=== PATIENT | male | born 1950 | race African-American/Black ===

== ENCOUNTER → 2017-06-19 | Outpatient (CLI) | payer MEDICARE, OTHER ==
--- NOTE | 2017-06-19 12:02 | EKG REPORT ---
SEVERITY:- ABNORMAL ECG - SINUS RHYTHM PROBABLE LEFT VENTRICULAR HYPERTROPHY BORDERLINE T ABNORMALITIES, INFERIOR LEADS : Confirmed by: Adilene Wheat MD 19-Jun-2017 12:02:01
== END ==
LOC: OD 10:15
PROVIDERS: ATTEND Family Medicine
DX: Z13.6 Encounter for screening for cardiovascular disorders (principal)
CPT/HCPCS: 93005; 93010

== ENCOUNTER 2018-03-03 16:42 | Emergency (ER) | payer MEDICARE, OTHER ==
--- NOTE | 2018-03-03 17:05 | ER Document Report ---
ED Medical Screen (RME) - General Chief Complaint: Back Pain Stated Complaint: BACK PAIN Time Seen by Provider: 03/03/18 16:58 TRAVEL OUTSIDE OF THE [place] IN LAST 30 DAYS: No - HPI Notes: 03/03/18 17:04 Seen by PCP for evaluation ataxia for 1 week - Related Data Allergies/Adverse Reactions: No Known Allergies Allergy (Unverified 03/03/18 16:43) Past Medical History - Social History Chew tobacco use (# tins/day): No Frequency of alcohol use: None Drug Abuse: None - Past Medical History Cardiac Medical History: Reports: Hx Hypercholesterolemia, Hx Hypertension Endocrine Medical History: Reports: Hx Diabetes Mellitus Type 2 Renal/ Medical History: Denies: Hx Peritoneal Dialysis Review of Systems - Review of Systems Constitutional: Other - Ataxia Physical Exam - Vital signs Vitals: Temp Pulse Resp BP Pulse Ox 98.2 F 80 19 147/77 H 95 03/03/18 16:48 03/03/18 16:48 03/03/18 16:48 03/03/18 16:48 03/03/18 16:48 - Notes Notes: Mild past pointing with nose to finger. No unilateral weakness. No nystagmus. Patient otherwise alert and oriented. Course - Re-evaluation Re-evalutation: 03/03/18 17:05 I have greeted and performed a rapid initial assessment of this patient. A comprehensive ED assessment and evaluation of the patient, analysis of test results and completion of the medical decision making process will be conducted by additional ED providers. - Vital Signs Vital signs: Temp Pulse Resp BP Pulse Ox 98.2 F 80 19 147/77 H 95 03/03/18 16:48 03/03/18 16:48 03/03/18 16:48 03/03/18 16:48 03/03/18 16:48 Doctor's Discharge - Discharge Referrals: MACK RIBEIRO MD [Primary Care Provider] - Follow up as needed
[2018-03-03 17:43] LABS: ABSOLUTE BASOPHILS # (AUTO) 0.1 10^3/uL (0.0-0.2); ABSOLUTE EOSINOPHILS # (AUTO) 0.2 10^3/uL (0.0-0.6); ABSOLUTE LYMPHOCYTES (AUTO) 2.1 10^3/uL (0.5-4.7); ABSOLUTE NEUT (AUTO) 5.1 10^3/uL (1.7-8.2); BASOPHILS % (AUTO) 1.3 % (0-2); EOSINOPHILS % (AUTO) 1.9 % (0-6); HEMATOCRIT 39.7 % (37.9-51.0); HEMOGLOBIN 12.4 g/dL (13.5-17.0); LYMPHOCYTES % (AUTO) 24.8 % (13-45); MEAN CORPUSCULAR HEMOGLOBIN 22.4 pg (27.0-33.4); MEAN CORPUSCULAR HGB CONC 31.1 g/dL (32.0-36.0); MEAN CORPUSCULAR VOLUME 72 fl (80-97); MONOCYTES % (AUTO) 11.5 % (3-13); PLATELET COUNT 315 10^3/uL (150-450); RED BLOOD COUNT 5.53 10^6/uL (4.35-5.55); RED CELL DISTRIBUTION WIDTH 19.6 % (11.5-14.0); SEGMENTED NEUTROPHILS % (AUTO) 60.5 % (42-78); TOTAL CELLS COUNTED % (AUTO) 100 %; WHITE BLOOD COUNT 8.5 10^3/uL (4.0-10.5)
[2018-03-03 18:05] LABS: ALANINE AMINOTRANSFERASE 27 U/L (21-72); ALBUMIN 4.3 g/dL (3.5-5.0); ALKALINE PHOSPHATASE 54 U/L (38-126); ANION GAP 10 (5-19); ASPARTATE AMINO TRANSFERASE 22 U/L (17-59); BILIRUBIN,DIRECT 0.2 mg/dL (0.0-0.4); BILIRUBIN,TOTAL 0.4 mg/dL (0.2-1.3); BLOOD UREA NITROGEN 19 mg/dL (7-20); CALCIUM 9.9 mg/dL (8.4-10.2); CARBON DIOXIDE 31 mmol/L (22-30); CHLORIDE 100 mmol/L (98-107); GLUCOSE 218 mg/dL (75-110); LIPASE 47.2 U/L (23-300); POTASSIUM 3.7 mmol/L (3.6-5.0); SODIUM 141.3 mmol/L (137-145); TOTAL PROTEIN 7.3 g/dL (6.3-8.2)
--- NOTE | 2018-03-03 18:07 | ER Document Report ---
ED General - General Chief Complaint: Back Pain Stated Complaint: BACK PAIN Time Seen by Provider: 03/03/18 16:58 Mode of Arrival: Wheelchair Information source: Patient Notes: This is a 67-year-old man with a history of hypertension and diabetes who is referred to the emergency room by primary care doctor for scan of the brain for possible stroke. The patient states that he has had difficulty ambulating for the past 5 days. He also complains of lumbar pain since that time. He denies any fever, chills, nausea vomiting. He denies any recent illnesses. He denies any urinary retention or urinary incontinence. He denies any fecal incontinence. He denies any numbness to the saddle area or any numbness down the extremities. TRAVEL OUTSIDE OF THE [place] IN LAST 30 DAYS: No - HPI Onset: Last week Onset/Duration: Gradual Quality of pain: No pain Severity: None Pain Level: Denies Associated symptoms: denies: Chest pain, Fever, Shortness of breath Exacerbated by: Denies Relieved by: Denies Similar symptoms previously: Yes Recently seen / treated by doctor: Yes - Related Data Allergies/Adverse Reactions: No Known Allergies Allergy (Unverified 03/03/18 16:43) Past Medical History - General Information source: Patient - Social History Smoking Status: Never Smoker Cigarette use (# per day): No Chew tobacco use (# tins/day): No Frequency of alcohol use: None Drug Abuse: None Lives with: Family Family History: None Patient has suicidal ideation: No Patient has homicidal ideation: No - Past Medical History Cardiac Medical History: Reports: Hx Hypercholesterolemia, Hx Hypertension Endocrine Medical History: Reports: Hx Diabetes Mellitus Type 2 Renal/ Medical History: Denies: Hx Peritoneal Dialysis Surgical Hx: Negative Review of Systems - Review of Systems Constitutional: denies: Chills, Fever EENT: No symptoms reported Cardiovascular: No symptoms reported Respiratory: No symptoms reported Gastrointestinal: No symptoms reported Genitourinary: No symptoms reported Male Genitourinary: No symptoms reported Musculoskeletal: See HPI Skin: No symptoms reported Hematologic/Lymphatic: No symptoms reported Neurological/Psychological: See HPI Physical Exam - Vital signs Vitals: Temp Pulse Resp BP Pulse Ox 98.2 F 80 19 147/77 H 95 03/03/18 16:48 03/03/18 16:48 03/03/18 16:48 03/03/18 16:48 03/03/18 16:48 Notes: Physical exam: GENERAL: 67-year-old man, alert and oriented 3, no acute distress HEAD: Atraumatic, normocephalic. EYES: Pupils equal round and reactive to light, extraocular movements intact, sclera anicteric, conjunctiva are normal. ENT: TMs normal, nares patent, oropharynx clear without exudates. Moist mucous membranes. NECK: Normal range of motion, supple without obvious mass or JVD. LUNGS: Breath sounds clear to auscultation bilaterally and equal. No wheezes rales or rhonchi. HEART: Regular rate and rhythm without murmurs, rubs or gallops. ABDOMEN: Soft, normoactive bowel sounds. No tenderness to palpation. No guarding, no rebound. No masses appreciated. Rectal exam: Perianal exam shows no sensory loss. No masses on rectal exam. Patient does have good tone. EXTREMITIES: Normal range of motion, no pitting or edema. No clubbing or cyanosis. NEUROLOGICAL: Cranial nerves II through XII grossly intact. Upper extremity motor exam is 5/5. Lower exam motor is 5/5. Heel to rao is grossly intact. Patient exhibits normal sensation over the face upper extremities, lower extremities and in the saddle area. Normal speech, moving all extremities. He does appear to have a wide-based gait on ambulation. PSYCH: Normal mood, normal affect. SKIN: Warm, Dry, normal turgor, no rashes or lesions noted. Course - Re-evaluation Re-evalutation: 03/03/18 21:21 I discussed the presentation as well as the MR findings with Dr. Esparza of neurology advised him. He felt that outpatient follow-up with a neurologist was appropriate. I discussed the MRI findings with Dr. Walters who would seen the patient earlier today as well as the neurology recommendations. The plan will be to refer the patient to a neurologist here in town (Dr. Gaytan). Patient will follow up with Dr. Walters for the appropriate referral papers. - Vital Signs Vital signs: Temp Pulse Resp BP Pulse Ox 98.2 F 86 18 148/76 H 96 03/03/18 21:30 03/03/18 21:30 03/03/18 21:30 03/03/18 21:30 03/03/18 21:30 - Laboratory Result Diagrams: 03/03/18 17:29 03/03/18 17:29 Laboratory results interpreted by me: 03/03/18 03/03/18 03/03/18 17:29 17:29 21:18 Hgb 12.4 L MCV 72 L MCH 22.4 L MCHC 31.1 L RDW 19.6 H Carbon Dioxide 31 H Glucose 218 H Urine Glucose (UA) >=500 H Urine Ketones TRACE H Urine Ascorbic Acid 40 H Discharge - Discharge Clinical Impression: Gait ataxia Condition: Stable Disposition: HOME, SELF-CARE Additional Instructions: Recommendations: As we discussed, the MRI of the brain did not show any acute strokes. There were some white matter changes which is often seen in patients with high blood pressure and diabetes. As far as the lumbar spine MRI, it did show some disc bulging with some arthritic changes but there was no compression or significant narrowing of the spinal cord. I have discussed the results of the MRI with Dr. Walters. Dr. Walters is following up on a B 12-lead level. We also want you to follow-up with a neurologist for evaluation. Return to the emergency room for worsening gait or any weakness of the lower extremities. Referrals: MACK WALTERS MD [Primary Care Provider] - Follow up in 3-5 days VALERIE DOSHI MD [COMMUNITY BASED STAFF] - Follow up as needed (This is the number for the neurologist: Call tomorrow and let them know you were evaluated for ataxia in the emergency room and the ER doctor (as well as Dr. Walters) wanted you evaluated in the next week.)
--- NOTE | 2018-03-03 19:09 | RADIOLOGY REPORT (SQ) ---
EXAM DESCRIPTION: MRI HEAD WITHOUT COMPLETED DATE/TIME: 03/03/2018 6:53 pm REASON FOR STUDY: Sent by Dr. Levi ataxia 1 week COMPARISON: None. TECHNIQUE: Multiplanar imaging includes non-contrasted T1, T2, FLAIR, and Diffusion with ADC map seq uences. Images stored on PACS. LIMITATIONS: None. FINDINGS: ANATOMY: No anomalies. Normal vascular flow voids. Pituitary fossa normal. CSF SPACES: Normal in size and contour. No hemorrhage. CEREBRUM: A few high-signal intensity lesions scattered throughout the white matter on FLAIR imaging with distribution suggesting chronic micro-vascular ischemic change. Sulci and gyri normal in size a nd contour. No evidence of hemorrhage, mass or extraaxial fluid collection. POSTERIOR FOSSA: No signal alteration. No hemorrhage. No edema, masses or mass effect. Internal zoraida tory canals, cerebello-pontine angles, mastoids normal. DIFFUSION: Negative for acute or sub-acute infarction. ORBITS: No masses. Globes normal. PARANASAL SINUSES: No fluid levels. Mucosa normal. OTHER: No other significant finding. IMPRESSION: MINIMAL MICROVASCULAR ISCHEMIC CHANGE. OTHERWISE NORMAL STUDY. EVIDENCE OF ACUTE STROKE: NO. TECHNICAL DOCUMENTATION: JOB ID: [id number] [employer]- All Rights Reserved Reading location - IP/workstation name: [email or web address]
--- NOTE | 2018-03-03 19:29 | RADIOLOGY REPORT (SQ) ---
EXAM DESCRIPTION: MRI LUMBAR SPINE WITHOUT COMPLETED DATE/TIME: 03/03/2018 6:53 pm REASON FOR STUDY: lower leg ataxia COMPARISON: None. TECHNIQUE: Sagittal and Axial imaging includes T1, T2, STIR and gradient echo sequences. Coronal T2/ HASTE imaging. LIMITATIONS: Imaging is interpreted in the absence of comparison radiographs FINDINGS: VISUALIZED UPPER ABDOMEN: Limited evaluation. No acute or suspicious findings suggested. 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 ALIGNMENT: Anatomic. VERTEBRAE: Intact. BONE MARROW: Normal. No marrow replacement or reactive changes. DISC SIGNAL: Disc desiccation and loss of height at L3/4 and L4/5. POSTERIOR ELEMENTS: Generally intact. No pars defect evident. HARDWARE: None in the spine. CORD AND CONUS: Normal in size and signal intensity. Conus at the appropriate level. SOFT TISSUES: No aortic aneurysm seen. No bulky retroperitoneal adenopathy or mass. No paraspinal mas s or fluid. L1-L2: No significant spinal stenosis or exit foraminal stenosis. L2-L3: No significant spinal stenosis or exit foraminal stenosis. L3-L4: Broad-based posterior disc bulge with concomitant facet arthropathy results in mild narrowing of the central canal and moderate narrowing of the right and left neural foramina. L4-L5: Broad-based posterior disc bulge with concomitant facet arthropathy results and mild narrowing of the central canal and moderate narrowing of the right and left neural foramina. L5-S1: Shallow broad-based posterior disc bulge without significant central canal narrowing. Concomi tant facet arthropathy results an mild right and moderate left neural foraminal narrowing. LOWER THORACIC: Disc desiccation and loss of height is seen at the T12/L1 level. SACRUM: Visualized upper sacrum intact. OTHER: No other significant findings. IMPRESSION: Multilevel spondylotic change most significantly involving the L3/4 and L4/5 levels as d etailed above. TECHNICAL DOCUMENTATION: JOB ID: [id number] [employer]- All Rights Reserved Reading location - IP/workstation name: [email or web address]
[2018-03-03 21:35] VITALS: BP 148/76
[2018-03-03 21:42] LABS: APPEARANCE,URINE CLEAR; BILIRUBIN,URINE NEGATIVE (NEGATIVE); COLOR,URINE STRAW; GLUCOSE, URINE >=500 mg/dL (NEGATIVE); KETONES,URINE TRACE mg/dL (NEGATIVE); LEUKOCYTE ESTERASE,URINE NEGATIVE (NEGATIVE); NITRITE,URINE NEGATIVE (NEGATIVE); PROTEIN,URINE NEGATIVE (NEGATIVE); URINE SPECIFIC GRAVITY 1.024; UROBILINOGEN,URINE NEGATIVE mg/dL (<2.0)
== END 2018-03-03 21:35 | disposition home or self-care (01) ==
LOC: ER 16:42
DX: R26.0 Ataxic gait (principal); I10 Essential (primary) hypertension; E11.9 Type 2 diabetes mellitus without complications; M54.5 Low back pain
CPT/HCPCS: 36415; 70551; 72148; 80053; 81001; 82607; 83690; 83735; 85025; 99284

== ENCOUNTER 2019-02-19 06:20 | Day surgery (SDC) | payer MEDICARE, OTHER ==
[~2019-02-19 06:20] MED LIST: BESIFLOXACIN HCL 0.6% OPH SUSP 5 ML BOTTLE OD PRN; CYCLOPENTOLATE 0.2%/PHENYLEPHRINE 1% OPH SOLN 2 ML OD PRN; DORZOLAMIDE HCL 2%/TIMOLOL MALEAT 0.5% OPH SOLN 10 ML OD PRN; KETOROLAC TROMETHAMINE 0.45% 4 DROP/0.4 ML DROPERETTE OD PRN; TETRACAINE HCL 0.5% OPH SOLN 4 ML OD PRN; TROPICAMIDE 1% OPH SOLN 3 ML OD PRN
== END 2019-02-19 06:51 | disposition home or self-care (01) ==
LOC: SC 06:20
PROVIDERS: ATTEND Internal Medicine
DX: R69 Illness, unspecified (principal)
CPT/HCPCS: J3490

== ENCOUNTER → 2019-02-24 | Day surgery (SDC) | payer MEDICARE, OTHER ==
[~2019-02-24] MED LIST changes: -BESIFLOXACIN HCL 0.6% OPH SUSP 5 ML BOTTLE OD PRN; +CHONDR SU A NA/HYALUR INTRAOC KIT (SURGICARE) ONE; -CYCLOPENTOLATE 0.2%/PHENYLEPHRINE 1% OPH SOLN 2 ML OD PRN; -DORZOLAMIDE HCL 2%/TIMOLOL MALEAT 0.5% OPH SOLN 10 ML OD PRN; +EPINEPHRINE INJ/PF 1 MG/1 ML AMPULE ONE; +FENTANYL CITRATE INJ/PF 100 MCG/2 ML AMPUL ONE; +LIDOCAINE 1%/PHENYLEPHRINE 1.5% 1 ML VIAL ONE; +MIDAZOLAM 2 MG/2 ML INJ ONE; -TETRACAINE HCL 0.5% OPH SOLN 4 ML OD PRN; -TROPICAMIDE 1% OPH SOLN 3 ML OD PRN
[2019-02-24] MEDS: CYCLOPENTOLATE 0.2%/PHENYLEPHRINE 1% OPH SOLN 2 ML OD PRN ×3 (07:51→08:11)
[2019-02-24] MEDS: TROPICAMIDE 1% OPH SOLN 3 ML OD PRN ×3 (07:51→08:11)
[2019-02-24] MEDS: TETRACAINE HCL 0.5% OPH SOLN 4 ML OD PRN ×3 (07:51→08:15)
[2019-02-24] MEDS: BESIFLOXACIN HCL 0.6% OPH SUSP 5 ML BOTTLE OD PRN ×4 (07:51→08:36)
[2019-02-24] MEDS: DORZOLAMIDE HCL 2%/TIMOLOL MALEAT 0.5% OPH SOLN 10 ML OD PRN ×2 (08:36)
--- NOTE | 2019-02-24 11:49 | [facility] OPERATIVE REPORT E ---
[facility] Operative Report NAME: NATI TEJADA AGE: 68Y DATE OF SURGERY: 02/24/2019 ROOM: PREOPERATIVE DIAGNOSIS: CATARACT, RIGHT EYE. POSTOPERATIVE DIAGNOSIS: CATARACT, RIGHT EYE. OPERATION: Cataract extraction with insertion of an IOL of the right eye. SURGEON: RICK NORTH M.D. ANESTHESIA: Topical. PROCEDURE: After obtaining appropriate consent, the patient's right eye was prepped and draped in sterile fashion as well as the surgeon in a sterile manner and cataract surgery was started. First a paracentesis blade was used to make a side-port incision. Viscoelastic was used to inflate the anterior chamber. Next a 2.4 mm incision was made with a 2.4 mm blade, clear corneal temporally. A continuous capsulorrhexis was made using a cystotome and Utrata forceps. Following this hydrodissection was carried out to make the lens fully loose and mobile and it was rotated 90 degrees. Following this, a [id number]-kxm-[id number] technique was used to phacoemulsify the lens with a CDE of 6.71. The remaining cortex was removed with irrigation/aspiration. Provisc was instilled into the capsular bag to inflate the bag. A SN60WF, 18.0 diopter lens was placed. The remaining viscoelastic material was removed with irrigation/aspiration. Following this, the incision was found to be watertight. Besivance was instilled into the eye and a protective shield was placed over the eye. The patient returned to the postoperative recovery in stable condition. DICTATING PHYSICIAN: RICK NORTH M.D. [id number] PHY#: [id number] ID: [id number] JOB#: [id number] ACCT: [id number] cc:RICK NORTH M.D. >
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
== END ==
LOC: SC 07:04
PROVIDERS: ATTEND Internal Medicine
DX: H25.813 Combined forms of age-related cataract, bilateral (principal); H40.1131 Primary open-angle glaucoma, bilateral, mild stage; H04.123 Dry eye syndrome of bilateral lacrimal glands; E11.9 Type 2 diabetes mellitus without complications; I10 Essential (primary) hypertension; E78.00 Pure hypercholesterolemia, unspecified; K21.9 Gastro-esophageal reflux disease without esophagitis; Z79.899 Other long term (current) drug therapy; Z79.82 Long term (current) use of aspirin; Z79.84 Long term (current) use of oral hypoglycemic drugs; Z79.4 Long term (current) use of insulin
CPT/HCPCS: 66984; 82962; V2632; J2250; J3490 ×2; A9270; J0171; J3010; J2370; 142

== ENCOUNTER 2019-03-12 08:05 | Day surgery (SDC) | payer MEDICARE, OTHER ==
[~2019-03-12 08:05] MED LIST changes: -CHONDR SU A NA/HYALUR INTRAOC KIT (SURGICARE) ONE; -EPINEPHRINE INJ/PF 1 MG/1 ML AMPULE ONE; -FENTANYL CITRATE INJ/PF 100 MCG/2 ML AMPUL ONE; -KETOROLAC TROMETHAMINE 0.45% 4 DROP/0.4 ML DROPERETTE OD PRN; +KETOROLAC TROMETHAMINE 0.45% 4 DROP/0.4 ML DROPERETTE OS PRN; -LIDOCAINE 1%/PHENYLEPHRINE 1.5% 1 ML VIAL ONE; -MIDAZOLAM 2 MG/2 ML INJ ONE
[2019-03-12] MEDS: TETRACAINE HCL 0.5% OPH SOLN 4 ML OS PRN ×3 (09:03→09:34)
[2019-03-12] MEDS: TROPICAMIDE 1% OPH SOLN 3 ML OS PRN ×3 (09:04→09:24)
[2019-03-12] MEDS: BESIFLOXACIN HCL 0.6% OPH SUSP 5 ML BOTTLE OS PRN ×4 (09:04→09:53)
[2019-03-12] MEDS: CYCLOPENTOLATE 0.2%/PHENYLEPHRINE 1% OPH SOLN 2 ML OS PRN ×3 (09:04→09:24)
[2019-03-12] MEDS ORDERED: MIDAZOLAM 2 MG/2 ML INJ ONE (09:15)
[2019-03-12] MEDS: CHONDR SU A NA/HYALUR INTRAOC KIT (SURGICARE) ONE ×2 (09:44)
[2019-03-12] MEDS: EPINEPHRINE INJ/PF 1 MG/1 ML AMPULE ONE ×2 (09:44)
[2019-03-12] MEDS: LIDOCAINE 1%/PHENYLEPHRINE 1.5% 1 ML VIAL ONE ×2 (09:45)
[2019-03-12] MEDS: DORZOLAMIDE HCL 2%/TIMOLOL MALEAT 0.5% OPH SOLN 10 ML OS PRN ×2 (09:53)
--- NOTE | 2019-03-12 21:09 | [facility] OPERATIVE REPORT E ---
[facility] Operative Report NAME: NATI TEJADA AGE: 68Y DATE OF SURGERY: 03/12/2019 ROOM: PREOPERATIVE DIAGNOSIS: CATARACT, LEFT EYE. POSTOPERATIVE DIAGNOSIS: CATARACT, LEFT EYE. OPERATION: Cataract extraction with insertion of an IOL of the left eye. SURGEON: RICK NORTH M.D. ANESTHESIA: Topical. PROCEDURE: After obtaining appropriate consent, the patient's left eye was prepped and draped in sterile fashion as well as the surgeon in a sterile manner and cataract surgery was started. First a paracentesis blade was used to make a side-port incision. Viscoelastic was used to inflate the anterior chamber. Next a 2.4 mm incision was made with a 2.4 mm blade, clear corneal temporally. A continuous capsulorrhexis was made using a cystotome and Utrata forceps. Following this hydrodissection was carried out to make the lens fully loose and mobile and it was rotated 90 degrees. Following this, a wnfhwm-rat-gmdvwxq technique was used to phacoemulsify the lens with a CDE of 5.91. The remaining cortex was removed with irrigation/aspiration. Provisc was instilled into the capsular bag to inflate the bag. A SN60WF, 18.0 diopter lens was placed. The remaining viscoelastic material was removed with irrigation/aspiration. Following this, the incision was found to be watertight. Besivance was instilled into the eye and a protective shield was placed over the eye. The patient returned to the postoperative recovery in stable condition. DICTATING PHYSICIAN: RICK NORTH M.D. [id number] PHY#: [id number] ID: [id number] JOB#: [id number] ACCT: [id number] cc:RICK NORTH M.D. >
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
== END 2019-03-12 10:37 | disposition home or self-care (01) ==
LOC: SC 08:05
PROVIDERS: ATTEND Internal Medicine
DX: H25.812 Combined forms of age-related cataract, left eye (principal); Z96.1 Presence of intraocular lens; I10 Essential (primary) hypertension; Z79.899 Other long term (current) drug therapy; E11.9 Type 2 diabetes mellitus without complications; Z79.4 Long term (current) use of insulin; Z79.84 Long term (current) use of oral hypoglycemic drugs; K21.9 Gastro-esophageal reflux disease without esophagitis; Z79.82 Long term (current) use of aspirin
CPT/HCPCS: 66984; 82962; V2632; J2250; J3490 ×2; A9270; J0171; J2370; 142

== ENCOUNTER 2020-09-13 18:39 | Inpatient (IN) | payer MEDICARE, OTHER ==
[~2020-09-13 18:39] MED LIST changes: -KETOROLAC TROMETHAMINE 0.45% 4 DROP/0.4 ML DROPERETTE OS PRN; +SUCCINYLCHOLINE CHLORIDE INJ 200 MG/10 ML VIAL ONE
[2020-09-13] MEDS ORDERED: ETOMIDATE INJ/PF 20 MG/10 ML SDV IV ONE ×3 (18:46→19:46)
[2020-09-13] MEDS ORDERED: BUMETANIDE INJ/PF 1 MG/4 ML SDV IV ONE (18:51)
[2020-09-13] MEDS ORDERED: FUROSEMIDE INJ/PF 20 MG/2 ML SDV IV ONE (18:51)
[2020-09-13] MEDS ORDERED: FUROSEMIDE INJ/PF 20 MG/2 ML SDV ONE (18:52)
[2020-09-13] MEDS ORDERED: DEXAMETHASONE SOD PHOS INJ 10 MG/1 ML VIAL IV ONE (19:04)
[2020-09-13] MEDS ORDERED: PIPERACILLIN/TAZOBACTAM 3.375 GM VIAL IV ONE (19:05)
[2020-09-13] MEDS ORDERED: VANCOMYCIN HCL INJ 1000 MG VIAL IV ONE (19:05)
[2020-09-13] MEDS ORDERED: MIDAZOLAM HCL 50 MG/100 ML RTUINJ IV PRN (19:12)
--- NOTE | 2020-09-13 19:24 | RADIOLOGY REPORT (SQ) ---
EXAM DESCRIPTION: CHEST SINGLE VIEW IMAGES COMPLETED DATE/TIME: 09/13/2020 6:08 pm REASON FOR STUDY: post-intubation. COMPARISON: None. EXAM PARAMETERS: NUMBER OF VIEWS: One view. TECHNIQUE: Single frontal radiographic view of the chest acquired. RADIATION DOSE: NA LIMITATIONS: None. FINDINGS: LUNGS AND PLEURA: There is diffuse consolidation involving the right upper and mid lung an d left mid to lower lung consistent with diffuse airspace disease. Probable small left pleural effus ion. No definite pneumothorax. MEDIASTINUM AND HILAR STRUCTURES: No masses. Contour normal. HEART AND VASCULAR STRUCTURES: Heart normal in size. Normal vasculature. BONES: No acute findings. HARDWARE: Endotracheal tube with tip 2.6 cm above the nam[place]. OTHER: No other significant finding. IMPRESSION: Diffuse areas of consolidation in the right upper tongue the left mid to lower lung cons istent with multifocal pneumonia. Endotracheal tube is in good position. TECHNICAL DOCUMENTATION: JOB ID: [id number] 2010 [employer]- All Rights Reserved Reading location - IP/workstation name: [email or web address]
[2020-09-13] MEDS ORDERED: SUCCINYLCHOLINE CHLORIDE INJ 200 MG/10 ML VIAL IV ONE (19:29)
--- NOTE | 2020-09-13 19:29 | ER Document Report ---
ED General - General Chief Complaint: Unresponsive Stated Complaint: UNRESPONSIVE Mode of Arrival: Medic Information source: Emergency Med Personnel Notes: 70-year-old black male arrives by EMS Nadia intubated prior to arrival because of severe dyspnea and hypoxia. He was also febrile according to EMS. Patient arrives hypotensive tachypneic hypoxic with wet crackles diffusely and decreased breath sounds. He was placed on ventilator by equipment maint tech. Chest x-ray upon arrival reveals severe pulmonary edema with question of COVID-19 patient was hypoxic with 62-70% . Patient had Andrade placed which revealed clear urine and also he received blood cultures urine cultures Bumex 1 Lasix 20 IV Decadron 10 IV vancomycin 1 g IV Zosyn 3.372 IV and this case was discussed with night monitor PATTIE Naik. He saw the patient in room 7 patient was given propofol IV as drip after multiple doses of etomidate 20 mg. Patient's blood pressure continued to rise and his oxygenation continued to rise to 90% x 2015. By history of patient had last week a flu shot and then last Saturday received Pneumovax and shingles shot at 2 PM according to . His Jodie Morales was called at approximately 2000 hrs. at [phone]. Patient has never been a smoker and nondrinker. They have no pets in the house. 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 With COVID-19. She is tested negative however. TRAVEL OUTSIDE OF THE [place] IN LAST 30 DAYS: No - HPI Onset: This morning Onset/Duration: Sudden, Worse Quality of pain: No pain Severity: None - Unable to quantify because of intubation Pain Level: Denies - Unable to quantify because of intubation Associated symptoms: Productive cough - Frothy pink mucoid discharge through intubation tube, Fever Similar symptoms previously: No Recently seen / treated by doctor: No - Related Data Allergies/Adverse Reactions: No Known Allergies Allergy (Verified 03/10/19 16:12) Past Medical History - General Information source: Emergency Med Personnel - Social History Smoking Status: Unknown if Ever Smoked Cigarette use (# per day): No Chew tobacco use (# tins/day): No Smoking Education Provided: No Frequency of alcohol use: None Drug Abuse: None Lives with: Family Family History: None, Reviewed & Not Pertinent, CAD, COPD, Hypertension Patient has suicidal ideation: No Patient has homicidal ideation: No - Past Medical History Cardiac Medical History: Reports: Hx Hypercholesterolemia, Hx Hypertension Denies: Hx Heart Attack Pulmonary Medical History: Denies: Hx Asthma Neurological Medical History: Denies: Hx Cerebrovascular Accident, Hx Seizures Endocrine Medical History: Reports: Hx Diabetes Mellitus Type 2 Renal/ Medical History: Denies: Hx Peritoneal Dialysis GI Medical History: Denies: Hx Hepatitis, Hx Hiatal Hernia, Hx Ulcer Infectious Medical History: Denies: Hx Hepatitis Past Surgical History: Denies: Hx Open Heart Surgery, Hx Pacemaker Review of Systems - Review of Systems -: Yes ROS unobtainable due to patient's medical condition Constitutional: See HPI, Fever, Weakness EENT: No symptoms reported Cardiovascular: No symptoms reported Respiratory: See HPI, Short of breath, Wheezing Gastrointestinal: No symptoms reported Genitourinary: No symptoms reported Male Genitourinary: No symptoms reported Musculoskeletal: No symptoms reported Skin: No symptoms reported Hematologic/Lymphatic: No symptoms reported Neurological/Psychological: No symptoms reported -: Yes All other systems reviewed and negative Physical Exam - Vital signs Vitals: Resp BP Pulse Ox 22 H 101/65 68 L 09/13/20 18:51 09/13/20 18:51 09/13/20 18:51 Interpretation: Hypotensive, Tachycardic, Hypoxic, Tachypneic, Other - Intubated prior to arrival - General General appearance: Lethargic - HEENT Head: Normocephalic, Atraumatic Eyes: Pale conjunctiva, Other - Pinpoint pupils status post fentanyl IV for intubation per EMS Pupils: PERRL Nasal: Normal Mouth/Lips: Normal Pharynx: Normal Neck: Normal - Respiratory Respiratory status: Respiratory distress, Other - On ventilator Chest status: Nontender Breath sounds: Decreased air movement, Rhonchi Chest palpation: Normal - Cardiovascular Rhythm: Tachycardia Heart sounds: Normal auscultation Murmur: No - Abdominal Inspection: Obese, Other Distension: Distended Bowel sounds: Normal Tenderness: Nontender Organomegaly: No organomegaly - Rectal Tenderness: No - Patient defecated in shorts found when Andrade was placed. Prostate: Other - deferred - Genitourinary Scrotum: Other - deferred - Back Back: Nontender - Extremities General upper extremity: Normal inspection, Normal color General lower extremity: Normal inspection, Normal color, Other - Patient normally walks with a walker in the house but otherwise is not ambulatory.. No: Rena's sign - Neurological Neuro grossly intact: Yes Cognition: Normal Orientation: AAOx4 Yesenia Coma Scale Eye Opening: Spontaneous Yesenia Coma Scale Verbal: Oriented Yesenia Coma Scale Motor: Obeys Commands Penn Coma Scale Total: 15 Speech: Normal Motor strength normal: LUE, RUE, LLE, RLE Sensory: Normal - Psychological Associated symptoms: Normal affect, Normal mood - Skin Skin Temperature: Warm Skin Moisture: Dry Skin Color: Normal Course - Vital Signs Vital signs: Temp Pulse Resp BP Pulse Ox 99.8 F 22 H 115/74 95 09/13/20 23:10 09/13/20 23:10 09/13/20 23:10 09/13/20 23:10 - Laboratory Result Diagrams: 09/13/20 18:42 09/13/20 18:42 Laboratory results interpreted by me: 09/13/20 09/13/20 09/13/20 18:42 18:42 18:42 WBC 11.0 H Hgb 12.6 L Hct 37.4 L MCV 74 L MCH 24.9 L RDW 16.9 H Seg Neuts % (Manual) 79 H Lymphocytes % (Manual) 7 L Abs Neuts (Manual) 9.1 H APTT 37.6 H D-Dimer 1.33 H Carbonic Acid ABG pH ABG pCO2 ABG pO2 ABG HCO3 ABG Total CO2 ABG O2 Saturation Chloride 97 L BUN 47 H Creatinine 1.60 H Est GFR ( Amer) 52 L Est GFR (MDRD) Non-Af 43 L Glucose 217 H Direct Bilirubin 0.5 H AST 107 H ALT 81 H Urine Protein Urine Glucose (UA) Urine Ketones Urine Ascorbic Acid 09/13/20 09/13/20 18:52 20:30 WBC Hgb Hct MCV MCH RDW Seg Neuts % (Manual) Lymphocytes % (Manual) Abs Neuts (Manual) APTT D-Dimer Carbonic Acid 1.72 H ABG pH 7.32 L ABG pCO2 57.0 H ABG pO2 38.5 L* ABG HCO3 28.7 H ABG Total CO2 30.5 H ABG O2 Saturation 67.4 L Chloride BUN Creatinine Est GFR ( Amer) Est GFR (MDRD) Non-Af Glucose Direct Bilirubin AST ALT Urine Protein 30 H Urine Glucose (UA) >=500 H Urine Ketones TRACE H Urine Ascorbic Acid 20 H - Diagnostic Test Radiology reviewed: Reports reviewed Critical Care Note - Critical Care Note Total time excluding time spent on procedures (mins): 60 Discharge - Discharge Clinical Impression: Suspected COVID-19 virus infection, Endotracheally intubated Respiratory failure with hypoxia Qualifiers: Chronicity: acute Qualified Code(s): J96.01 - Acute respiratory failure with hypoxia PNA (pneumonia) Qualifiers: Pneumonia type: due to unspecified organism Laterality: bilateral Lung location: unspecified part of lung Qualified Code(s): J18.9 - Pneumonia, unspecified organism Condition: Serious Disposition: ADMITTED INPATIENT Admitting Provider: PATTIE Naik Unit Admitted: ICU
[2020-09-13] MEDS ORDERED: ACETAMINOPHEN 325 MG SUPP.RECT PR ONE ×3 (19:35→19:38)
[2020-09-13] MEDS ORDERED: NORMAL SALINE 500 ML with ROCURONIUM BROMIDE 500 MG IV PRN ×2 (19:47)
[2020-09-13 20:07] LABS: ARTERIAL BLOOD BASE EXCESS 1.4 mmol/L; ARTERIAL BLOOD FIO2 100%; ARTERIAL BLOOD H2CO3 1.72 mmol/L (1.05-1.35); ARTERIAL BLOOD HCO3 28.7 mmol/L (20-24); ARTERIAL BLOOD O2 SATURATION 67.4 % (94-98); ARTERIAL BLOOD PH 7.32 (7.35-7.45); ARTERIAL BLOOD TOTAL CO2 30.5 mmol/L (23-27)
[2020-09-13] MEDS ORDERED: FENTANYL CITRATE INJ/PF 100 MCG/2 ML AMPUL IV ONE (20:07)
[2020-09-13 20:08] LABS: INTERNATIONAL RATION (INR) 1.04; PROTHROMBIN TIME 13.8 SEC (11.4-15.4)
[2020-09-13 20:09] LABS: PARTIAL THROMBOPLASTIN TIME 37.6 SEC (23.5-35.8)
[2020-09-13 20:10] LABS: HEMATOCRIT 37.4 % (37.9-51.0); HEMOGLOBIN 12.6 g/dL (13.5-17.0); MEAN CORPUSCULAR HEMOGLOBIN 24.9 pg (27.0-33.4); MEAN CORPUSCULAR HGB CONC 33.7 g/dL (32.0-36.0); MEAN CORPUSCULAR VOLUME 74 fl (80-97); PLATELET COUNT 357 10^3/uL (150-450); RED BLOOD COUNT 5.05 10^6/uL (4.35-5.55); RED CELL DISTRIBUTION WIDTH 16.9 % (11.5-14.0)
[2020-09-13 20:11] LABS: D-DIMER 1.33 ug/mL (0.00-0.50)
[2020-09-13 20:11] LABS: ARTERIAL BLOOD PO2 38.5 mmHg (80-100)
[2020-09-13] MEDS: PROPOFOL 1,000 MG/100 ML INFUS..BTL IV PRN (20:14)
[2020-09-13 20:21] LABS: ALBUMIN 3.7 g/dL (3.5-5.0); ALKALINE PHOSPHATASE 73 U/L (38-126); ANION GAP 13 (5-19); ASPARTATE AMINO TRANSFERASE 107 U/L (17-59); BILIRUBIN,DIRECT 0.5 mg/dL (0.0-0.4); BILIRUBIN,TOTAL 0.8 mg/dL (0.2-1.3); BLOOD UREA NITROGEN 47 mg/dL (7-20); CALCIUM 8.4 mg/dL (8.4-10.2); CARBON DIOXIDE 29 mmol/L (22-30); CHLORIDE 97 mmol/L (98-107); CREATINE KINASE 63 U/L (55-170); GLUCOSE 217 mg/dL (75-110); POTASSIUM 4.4 mmol/L (3.6-5.0); TOTAL PROTEIN 6.8 g/dL (6.3-8.2)
[2020-09-13 20:22] LABS: A TYPE INFLUENZA AG NEGATIVE (NEGATIVE); B INFLUENZA AG NEGATIVE (NEGATIVE)
[2020-09-13 20:29] LABS: ABSOLUTE LYMPHOCYTES# (MANUAL) 0.9 10^3/uL (0.5-4.7); BAND NEUTROPHILS % (MANUAL) 3 % (3-5); BASOPHILS % (MANUAL) 0 % (0-2); EOSINOPHILS % (MANUAL) 0 % (0-6); LYMPHOCYTES % (MANUAL) 7 % (13-45); METAMYELOCYTES % (MANUAL) 1 % (0-1); MONOCYTES % (MANUAL) 9 % (3-13); SEGMENTED NEUTROPHILS % (MAN) 79 % (42-78); TOTAL CELLS COUNTED 100
[2020-09-13 20:31] LABS: ANISOCYTOSIS 1+; BURR CELLS SLIGHT; OVALOCYTES SLIGHT; PLATELET COMMENT ADEQUATE; POIKILOCYTOSIS SLIGHT; SCHISTOCYTES SLIGHT
[2020-09-13 20:32] LABS: TROPONIN I 0.017 ng/mL
[2020-09-13] MEDS ORDERED: NOREPINEPHRINE BITARTRATE INJ/PF 4 MG/4 ML SDV IV ONE (20:35)
[2020-09-13] MEDS: DEXTROSE 5%-WATER 250 ML with NOREPINEPHRINE BITARTRATE 4 MG IV PRN ×2 (20:44)
[2020-09-13 20:47] LABS: APPEARANCE,URINE SLIGHTLY-CLOUDY; BILIRUBIN,URINE NEGATIVE (NEGATIVE); COLOR,URINE YELLOW; GLUCOSE, URINE >=500 mg/dL (NEGATIVE); KETONES,URINE TRACE mg/dL (NEGATIVE); LEUKOCYTE ESTERASE,URINE NEGATIVE (NEGATIVE); NITRITE,URINE NEGATIVE (NEGATIVE); PROTEIN,URINE 30 mg/dL (NEGATIVE); URINE SPECIFIC GRAVITY 1.017; UROBILINOGEN,URINE NEGATIVE mg/dL (<2.0)
[2020-09-13] MEDS ORDERED: ACETAMINOPHEN 325 MG TABLET PO PRN (20:54)
--- NOTE | 2020-09-13 20:57 | RADIOLOGY REPORT (SQ) ---
EXAM DESCRIPTION: XR ABDOMEN 1 VIEW (KUB) COMPLETED DATE/TME: 09/13/2020 19:38 CLINICAL HISTORY: 70 years Male NGT PLACEMENT COMPARISON: None. TECHNIQUE: Single view of the lower chest/upper abdomen. FINDINGS: There is a nasogastric tube in place with the tip in the gastric body. IMPRESSION: Nasogastric tube with the tip in the gastric body.
[2020-09-13] MEDS ORDERED: PHARMACY COMMUNICATION ORDER MC NR (21:00)
[2020-09-13] MEDS ORDERED: DEXTROSE 50%-WATER 25 GM/50 ML DISP.SYRIN IV PRN (21:17)
[2020-09-13] MEDS ORDERED: GLUCAGON,HUMAN RECOMB 1 MG INJ IM PRN (21:17)
[2020-09-13] MEDS ORDERED: DEXTROSE 40% GEL 15 GM TUBE PO PRN ×2 (21:17)
[2020-09-13] MEDS: HEPARIN SOD (PORCINE) 5,000 UNIT/ML 1 ML VIAL SUBCUT SCH (21:49)
[2020-09-13] MEDS: PANTOPRAZOLE SODIUM 40 MG VIAL IV SCH (21:49)
[2020-09-13] MEDS ORDERED: CEFEPIME 2 GM/D5W RTU 2 GM/50 ML RTUPB IV SCH (22:00)
[2020-09-13] MEDS: INSULIN REG, HUMAN 100 UNIT/ML 3 ML VIAL (PYX) SUBCUT SCH (22:02)
[2020-09-13] MEDS ORDERED: VANCOMYCIN HCL INJ 1000 MG VIAL IV PRN (22:27)
[2020-09-13] MEDS ORDERED: VANCOMYCIN HCL 1,000 MG in DEXTROSE 5%-WATER 250 ML IV ONE (23:00)
--- NOTE | 2020-09-13 23:30 | CRITICAL CARE ADMISSION REPORT ---
HPI Date:: 09/13/20 Time:: 23:09 Reason for ICU Reason:: RESP FAILURE Admission Date/Time & PCP: Admission Date/Time: 09/13/20 21:08 Primary Care Provider: MACK RIBEIRO MD ADMIT TO DR. HAWKINS HPI: 70 year old male who was found at home by his with AMS and shallow respiratory efforts. EMS was called and the patient was found to by hypoxic and was intubated in the home. The patient was transported to [place] [facility] and evaluated by the ED provider.The patient has a past medical hisotry to include DM, HTN, and hyperlipidemia per the spouse. She denies any cardiac history. Chest xray revealed bilateral PNA and the pateint was given zosyn and vancomycin in the ED. The patient was also give lasix 20mg and bumes 1 mg. Lab results revealed a BNP to only be in the 100 range. The patient remained hypoxic with sats in the low to mid 80's and improved with vent adjustment and adequate sedation. Critical care was consulted for admission and management of this patient. I I sawthe patient in the ED and made vent adjustment with improvement in saturation to low 90's. A complete review of systems was unable to obtain due to intubation and sedation. - Diagnosis/Plan (1) Respiratory failure with hypoxia Qualifiers: Chronicity: acute Qualified Code(s): J96.01 - Acute respiratory failure with hypoxia Is this a current diagnosis for this admission?: Yes Plan: continue mechanical ventilation and repeat CXR in AM repeat ABG vent adjustment as needed (2) Suspected COVID-19 virus infection Is this a current diagnosis for this admission?: Yes Plan: COVID !( isolation precautions (3) PNA (pneumonia) Qualifiers: Pneumonia type: due to unspecified organism Laterality: bilateral Lung location: unspecified part of lung Qualified Code(s): J18.9 - Pneumonia, unspecified organism Is this a current diagnosis for this admission?: Yes Plan: continue antibioticsblood culture and sputum cultures pending covid 19 pending (4) Acute renal failure (ARF) Qualifiers: Acute renal failure type: unspecified Qualified Code(s): N17.9 - Acute kidney failure, unspecified Is this a current diagnosis for this admission?: Yes Plan: LR at 125 ml/hr repeat cmp in am trend creatinine pharmacy to dose vanc discontinue if pending mrsa swab negative (5) Diabetes mellitus Qualifiers: Diabetes mellitus type: type 2 Diabetes mellitus skilled nursing insulin use: without termite control service representative use Diabetes mellitus complication status: without complication Qualified Code(s): E11.9 - Type 2 diabetes mellitus without complications Is this a current diagnosis for this admission?: No Plan: place patient on regular insulin sliding scale FSBS Q 6hr Past Medical History Cardiac Medical History: Reports: Hyperlipidema, Hypertension Denies: Myocardial Infarction Pulmonary Medical History: Reports: None Denies: Asthma EENT Medical History: Reports: None Neurological Medical History: Reports: None Denies: Seizures Endocrine Medical History: Reports: Diabetes Mellitus Type 2 Renal/ Medical History: Reports: None Malignancy Medical History: Reports: None GI Medical History: Reports: None Denies: Hepatitis, Hiatal Hernia Musculoskeltal Medical History: Reports: None Skin Medical History: Reports: None Psychiatric Medical History: Reports: None Traumatic Medical History: Reports: None Hematology: Reports: None Denies: Anemia, Sickle Cell Disease Infectious Medical History: Reports: None Past Surgical History Past Surgical History: Reports: None Denies: Pacemaker Social/Family History - Social History Lives with: Family Smoking Status: Unknown if Ever Smoked Hx Recreational Drug Use: No Drugs: None - Family History Family History: Reviewed & Not Pertinent - Medication/Allergies Home Medications: Amlodipine Besylate [Norvasc 5 mg Tablet] 5 mg PO DAILY 02/17/19 Aspirin [Aspirin 81 mg Chewable Tablet] 81 mg PO DAILY 02/17/19 Atorvastatin Calcium [Lipitor 40 mg Tablet] 40 mg PO QHS 02/17/19 Besifloxacin HCl [Besivance 0.6% Oph Susp 5 ml] 1 drop OP ASDIR PRN 02/17/19 Carvedilol [Coreg 25 mg Tablet] 1 tab PO DAILY 02/17/19 Difluprednate [Durezol] 5 ml OP ASDIR PRN 02/17/19 Empagliflozin [Jardiance] 25 mg PO DAILY 02/17/19 Esomeprazole Magnesium [Nexium] 20 mg PO DAILY 02/17/19 Hydralazine HCl [Apresoline 50 mg Tablet] 50 mg PO ASDIR PRN 02/17/19 Insulin Aspart [Novolog Insulin 100 Unit/1 ml 10 ml] unit SUBCUT AC 02/17/19 Insulin Glargine,Hum.rec.anlog [Lantus Insulin 100 Unit/1 ml 10 ml] 1 unit SUBCUT ASDIR PRN 02/17/19 Latanoprost/Pf [Latanoprost 0.005% Eye Drop] 7.5 ml OP ASDIR PRN 02/17/19 Metformin HCl [Metformin ER Gastric] 1,000 mg PO BID 02/17/19 Nepafenac [Ilevro] 1.7 ml OP ASDIR PRN 02/17/19 Pioglitazone HCl [Actos] 30 mg PO DAILY 02/17/19 Telmisartan/Hydrochlorothiazid [Telmisartan-Hctz 80-25 mg Tab] 1 each PO DAILY 02/17/19 Allergies/Adverse Reactions: No Known Allergies Allergy (Verified 03/10/19 16:12) Physical Exam Vital Signs: Temp Pulse Resp BP Pulse Ox 99.8 F 19 120/72 88 L 09/13/20 22:46 09/13/20 22:46 09/13/20 22:46 09/13/20 22:46 Intake & Output 09/12/20 09/13/20 09/14/20 06:59 06:59 06:59 Intake Total 24 Balance 24 Weight 102 kg Weight/Height Weight 102 kg Height 5 ft 9 in General appearance: PRESENT: severe distress Head exam: PRESENT: atraumatic, normocephalic Eye exam: PRESENT: PERRLA Ear exam: PRESENT: normal external ear exam Mouth exam: PRESENT: moist Neck exam: PRESENT: full ROM Respiratory exam: PRESENT: accessory muscle use, rhonchi, tachypnea - corrected with adequate sedation Cardiovascular exam: PRESENT: RRR Pulses: PRESENT: normal radial pulses, +1 pedal pulses bilateral GI/Abdominal exam: PRESENT: distended, hypoactive bowel sounds, soft Rectal exam: PRESENT: deferred Extremities exam: PRESENT: pedal edema, +1 edema Musculoskeletal exam: PRESENT: full ROM Neurological exam: PRESENT: other - intubated and sedated full neuro exam unable to perform Psychiatric exam: PRESENT: agitated Skin exam: PRESENT: dry, intact, warm Tubes/Lines: PRESENT: Endotracheal Tube Laboratory/Radiographs Laboratory Results: 09/13/20 18:42 09/13/20 18:42 09/13/20 09/13/20 09/13/20 18:42 18:42 18:42 WBC 11.0 H RBC 5.05 Hgb 12.6 L Hct 37.4 L MCV 74 L MCH 24.9 L MCHC 33.7 RDW 16.9 H Plt Count 357 Seg Neutrophils % Not Reportable Carbonic Acid HCO3/H2CO3 Ratio ABG pH ABG pCO2 ABG pO2 ABG HCO3 ABG O2 Saturation ABG Base Excess FiO2 Sodium 138.5 Potassium 4.4 Chloride 97 L Carbon Dioxide 29 Anion Gap 13 BUN 47 H Creatinine 1.60 H Est GFR ( Amer) 52 L Glucose 217 H Lactic Acid 1.7 Calcium 8.4 Total Bilirubin 0.8 AST 107 H Alkaline Phosphatase 73 Total Protein 6.8 Albumin 3.7 Urine Color Urine Appearance Urine pH Ur Specific Levels Urine Protein Urine Glucose (UA) Urine Ketones Urine Blood Urine Nitrite Ur Leukocyte Esterase Urine WBC (Auto) Urine RBC (Auto) 09/13/20 09/13/20 18:52 20:30 WBC RBC Hgb Hct MCV MCH MCHC RDW Plt Count Seg Neutrophils % Carbonic Acid 1.72 H HCO3/H2CO3 Ratio 16:1 ABG pH 7.32 L ABG pCO2 57.0 H ABG pO2 38.5 L* ABG HCO3 28.7 H ABG O2 Saturation 67.4 L ABG Base Excess 1.4 FiO2 100% Sodium Potassium Chloride Carbon Dioxide Anion Gap BUN Creatinine Est GFR ( Amer) Glucose Lactic Acid Calcium Total Bilirubin AST Alkaline Phosphatase Total Protein Albumin Urine Color YELLOW Urine Appearance SLIGHTLY-CLOUDY Urine pH 5.0 Ur Specific Levels 1.017 Urine Protein 30 H Urine Glucose (UA) >=500 H Urine Ketones TRACE H Urine Blood NEGATIVE Urine Nitrite NEGATIVE Ur Leukocyte Esterase NEGATIVE Urine WBC (Auto) 1 Urine RBC (Auto) 0 09/13/20 09/13/20 18:42 18:42 Creatine Kinase 63 Troponin I 0.017 NT-Pro-B Natriuret Pep 110 Impressions: Chest X-Ray 09/13/20 00:00 IMPRESSION: Diffuse areas of consolidation in the right upper tongue the left mid to lower lung consistent with multifocal pneumonia. Endotracheal tube is in good position. KUB X-Ray 09/13/20 19:38 IMPRESSION: Nasogastric tube with the tip in the gastric body. All labs, radiographs, diagnostic studies and EKGs were personally reviewed: Yes In addition, reports of radiographic and diagnostic studies were read: Yes Critical Time Critical Time (minutes): 55 -: The care of a critically ill patient is dynamic. This note represents a static moment in the admission process. Orders and treatments may be given simultaneously and urgently, and time is not health and safety representative of the treatment process. This patient requires Critical Care secondary to life threatening organ or limb dysfunction. Without Critical Care services, the patient is at risk for increased mortality and morbidity.
[2020-09-14] MEDS ORDERED: CEFEPIME 2 GM/D5W RTU 2 GM/50 ML RTUPB IV ONE (00:28)
[2020-09-14] MEDS: PROPOFOL 1,000 MG/100 ML INFUS..BTL IV PRN ×6 (00:53→21:53)
[2020-09-14] MEDS: RINGERS SOLUTION,LACTATED 1,000 ML IV PRN ×3 (00:59→22:54)
[2020-09-14] MEDS: DEXTROSE 5%-WATER 250 ML with NOREPINEPHRINE BITARTRATE 4 MG IV PRN ×2 (01:04)
[2020-09-14] MEDS: DEXAMETHASONE SOD PHOSPHATE INJ 4 MG/1 ML VIAL IV SCH ×3 (01:55→18:10)
[2020-09-14 02:00] LABS: ARTERIAL BLOOD BASE EXCESS -0.1 mmol/L; ARTERIAL BLOOD H2CO3 1.22 mmol/L (1.05-1.35); ARTERIAL BLOOD HCO3 24.6 mmol/L (20-24); ARTERIAL BLOOD O2 SATURATION 94.7 % (94-98); ARTERIAL BLOOD PCO2 40.6 mmHg (35-45); ARTERIAL BLOOD TOTAL CO2 25.9 mmol/L (23-27)
[2020-09-14] MEDS ORDERED: VANCOMYCIN HCL 1,000 MG in DEXTROSE 5%-WATER 250 ML IV ONE (02:00)
[2020-09-14 02:04] LABS: ARTERIAL BLOOD FIO2 100%
[2020-09-14 02:17] LABS: ANION GAP 15 (5-19); BLOOD UREA NITROGEN 54 mg/dL (7-20); CALCIUM 8.7 mg/dL (8.4-10.2); CARBON DIOXIDE 28 mmol/L (22-30); CHLORIDE 96 mmol/L (98-107); GLUCOSE 330 mg/dL (75-110); POTASSIUM 3.6 mmol/L (3.6-5.0)
[2020-09-14 02:27] LABS: CREATINE KINASE MB 1.04 ng/mL (<4.55); TROPONIN I 0.037 ng/mL
[2020-09-14] MEDS: HEPARIN SOD (PORCINE) 5,000 UNIT/ML 1 ML VIAL SUBCUT SCH ×3 (05:54→22:54)
[2020-09-14] MEDS: INSULIN REG, HUMAN 100 UNIT/ML 3 ML VIAL (PYX) SUBCUT SCH ×3 (05:55→18:10)
[2020-09-14 06:39] LABS: ARTERIAL BLOOD BASE EXCESS -0.4 mmol/L; ARTERIAL BLOOD H2CO3 1.22 mmol/L (1.05-1.35); ARTERIAL BLOOD HCO3 24.4 mmol/L (20-24); ARTERIAL BLOOD O2 SATURATION 97.9 % (94-98); ARTERIAL BLOOD PCO2 40.5 mmHg (35-45); ARTERIAL BLOOD PO2 106.7 mmHg (80-100); ARTERIAL BLOOD TOTAL CO2 25.7 mmol/L (23-27)
[2020-09-14 06:45] LABS: ARTERIAL BLOOD FIO2 100%
[2020-09-14 08:03] LABS: HEMATOCRIT 36.9 % (37.9-51.0); HEMOGLOBIN 12.1 g/dL (13.5-17.0); MEAN CORPUSCULAR HEMOGLOBIN 24.3 pg (27.0-33.4); MEAN CORPUSCULAR HGB CONC 32.8 g/dL (32.0-36.0); MEAN CORPUSCULAR VOLUME 74 fl (80-97); PLATELET COUNT 366 10^3/uL (150-450); RED BLOOD COUNT 4.97 10^6/uL (4.35-5.55); RED CELL DISTRIBUTION WIDTH 16.5 % (11.5-14.0); WHITE BLOOD COUNT 14.4 10^3/uL (4.0-10.5)
[2020-09-14 08:08] LABS: INTERNATIONAL RATION (INR) 0.98; PROTHROMBIN TIME 13.2 SEC (11.4-15.4)
--- NOTE | 2020-09-14 08:18 | RADIOLOGY REPORT (SQ) ---
EXAM DESCRIPTION: CHEST SINGLE VIEW IMAGES COMPLETED DATE/TIME: 09/14/2020 6:52 am REASON FOR STUDY: congestion COMPARISON: 09/13/2020 NUMBER OF VIEWS: One view. TECHNIQUE: Single frontal radiographic image of the chest acquired. LIMITATIONS: None. FINDINGS: LUNGS AND PLEURA: Persistent bilateral alveolar airspace disease there has been improvemen t since yesterday. Findings are most marked in the right upper lobe and left base. MEDIASTINUM AND HILAR STRUCTURES: Stable heart size and mediastinal structures. HEART AND VASCULAR STRUCTURES: Stable appearance. SUPPORT DEVICES: Appropriate location without change. NG tube is been added. Tip is not demonstrate d but well below the GE junction. BONES: No acute findings. OTHER: No other significant finding. IMPRESSION: Mild improvement aeration. Support lines and tubes remain in satisfactory position. NG tube has been added. TECHNICAL DOCUMENTATION: JOB ID: [id number] 2010 [employer]- All Rights Reserved Reading location - IP/workstation name: [email or web address]
[2020-09-14 08:26] LABS: ALBUMIN 3.2 g/dL (3.5-5.0); ALKALINE PHOSPHATASE 65 U/L (38-126); ANION GAP 15 (5-19); ASPARTATE AMINO TRANSFERASE 133 U/L (17-59); BILIRUBIN,DIRECT 0.6 mg/dL (0.0-0.4); BILIRUBIN,TOTAL 0.8 mg/dL (0.2-1.3); BLOOD UREA NITROGEN 55 mg/dL (7-20); CALCIUM 8.2 mg/dL (8.4-10.2); CARBON DIOXIDE 24 mmol/L (22-30); CHLORIDE 99 mmol/L (98-107); CHOLESTEROL 125.39 mg/dL (0-200); GLUCOSE 311 mg/dL (75-110); PHOSPHORUS 4.7 mg/dL (2.5-4.5); POTASSIUM 3.6 mmol/L (3.6-5.0); TOTAL PROTEIN 6.4 g/dL (6.3-8.2); TRIGLYCERIDES 403 mg/dL (<150)
[2020-09-14 08:34] LABS: ABSOLUTE MONOCYTES # (MANUAL) 0.9 10^3/uL (0.1-1.4); BAND NEUTROPHILS % (MANUAL) 2 % (3-5); BASOPHILS % (MANUAL) 0 % (0-2); EOSINOPHILS % (MANUAL) 0 % (0-6); LYMPHOCYTES % (MANUAL) 7 % (13-45); MONOCYTES % (MANUAL) 6 % (3-13); SEGMENTED NEUTROPHILS % (MAN) 85 % (42-78); TOTAL CELLS COUNTED 100
[2020-09-14 08:35] LABS: ANISOCYTOSIS 1+; CREATINE KINASE MB 1.12 ng/mL (<4.55); DIRECT LDL 51 mg/dL (<100); PLATELET COMMENT ADEQUATE; TROPONIN I 0.015 ng/mL
[2020-09-14 08:36] LABS: POLYCHROMASIA SLIGHT; TEAR DROP CELLS SLIGHT
[2020-09-14 08:40] LABS: FREE T4 (FREE THYROXINE) 1.34 ng/dL (0.78-2.19)
[2020-09-14 08:54] LABS: THYROID STIMULATING HORMONE 0.22 uIU/mL (0.47-4.68)
[2020-09-14 08:58] LABS: C-REACTIVE PROTEIN 257.4 mg/L (<10.0)
--- NOTE | 2020-09-14 09:17 | PDOC CRITICAL CARE PROG REPORT ---
General Date:: 09/14/20 ICU Day:: 2 Ventilator Day:: 2 Hospital Day:: 2 Resuscitation Status: Full Code Events in the past 12 to 24 Hours:: Improved oxygenation Review of systems relevant to events:: Pulmonary. Reason for ICU Addmission:: RESP FAILURE requiring intubation - Medications: Medications reviewed and adjusted accordingly: Yes Vasopressors:: None Sedation:: Diprivan. Physical Exam Vital Signs: Temp Pulse Resp BP Pulse Ox 96.3 F L 73 22 H 96/69 L 100 09/14/20 08:00 09/14/20 08:00 09/14/20 08:00 09/14/20 06:21 09/14/20 08:00 Intake & Output 09/13/20 09/14/20 09/15/20 06:59 06:59 06:59 Intake Total 561 Output Total 1300 0 Balance -739 0 Weight 99.1 kg Weight/Height Weight 99.1 kg Height 5 ft 9 in General appearance: PRESENT: no acute distress, well-nourished Head exam: PRESENT: atraumatic, normocephalic Eye exam: PRESENT: conjunctiva pink, EOMI, PERRLA. ABSENT: scleral icterus Ear exam: PRESENT: normal external ear exam Mouth exam: PRESENT: moist, tongue midline Neck exam: ABSENT: carotid bruit, JVD, lymphadenopathy, thyromegaly Respiratory exam: PRESENT: clear to auscultation arturo, crackles - Mild. ABSENT: rales, rhonchi, wheezes Cardiovascular exam: PRESENT: RRR. ABSENT: diastolic murmur, rubs, systolic murmur GI/Abdominal exam: PRESENT: normal bowel sounds, soft. ABSENT: distended, guar ding, mass, organolmegaly, rebound, tenderness Rectal exam: PRESENT: deferred Gentrourinary exam: PRESENT: indwelling catheter Extremities exam: PRESENT: full ROM. ABSENT: calf tenderness, clubbing, pedal edema Musculoskeletal exam: PRESENT: normal inspection Neurological exam: PRESENT: altered, CN II-XII grossly intact, other - Sedated Skin exam: PRESENT: dry, intact, warm. ABSENT: cyanosis, rash Tubes/Lines: PRESENT: Endotracheal Tube, Nasogastic Tube Laboratory/Radiographs Laboratory Results: 09/14/20 07:45 09/14/20 07:45 09/13/20 09/13/20 09/13/20 18:42 18:42 18:42 WBC 11.0 H RBC 5.05 Hgb 12.6 L Hct 37.4 L MCV 74 L MCH 24.9 L MCHC 33.7 RDW 16.9 H Plt Count 357 Seg Neutrophils % Not Reportable Carbonic Acid HCO3/H2CO3 Ratio ABG pH ABG pCO2 ABG pO2 ABG HCO3 ABG O2 Saturation ABG Base Excess FiO2 Sodium 138.5 Potassium 4.4 Chloride 97 L Carbon Dioxide 29 Anion Gap 13 BUN 47 H Creatinine 1.60 H Est GFR ( Amer) 52 L Glucose 217 H Lactic Acid 1.7 Calcium 8.4 Phosphorus Magnesium Total Bilirubin 0.8 AST 107 H Alkaline Phosphatase 73 Ammonia C-Reactive Protein Total Protein 6.8 Albumin 3.7 Triglycerides Cholesterol LDL Cholesterol Direct HDL Cholesterol TSH Free T4 Urine Color Urine Appearance Urine pH Ur Specific Iva Urine Protein Urine Glucose (UA) Urine Ketones Urine Blood Urine Nitrite Ur Leukocyte Esterase Urine WBC (Auto) Urine RBC (Auto) 09/13/20 09/13/20 09/14/20 18:52 20:30 01:40 WBC RBC Hgb Hct MCV MCH MCHC RDW Plt Count Seg Neutrophils % Carbonic Acid 1.72 H HCO3/H2CO3 Ratio 16:1 ABG pH 7.32 L ABG pCO2 57.0 H ABG pO2 38.5 L* ABG HCO3 28.7 H ABG O2 Saturation 67.4 L ABG Base Excess 1.4 FiO2 100% Sodium Potassium Chloride Carbon Dioxide Anion Gap BUN Creatinine Est GFR ( Amer) Glucose Lactic Acid Calcium Phosphorus Magnesium Total Bilirubin AST Alkaline Phosphatase Ammonia < 8.7 L C-Reactive Protein Total Protein Albumin Triglycerides Cholesterol LDL Cholesterol Direct HDL Cholesterol TSH Free T4 Urine Color YELLOW Urine Appearance SLIGHTLY-CLOUDY Urine pH 5.0 Ur Specific Iva 1.017 Urine Protein 30 H Urine Glucose (UA) >=500 H Urine Ketones TRACE H Urine Blood NEGATIVE Urine Nitrite NEGATIVE Ur Leukocyte Esterase NEGATIVE Urine WBC (Auto) 1 Urine RBC (Auto) 0 09/14/20 09/14/20 09/14/20 01:40 01:40 06:08 WBC RBC Hgb Hct MCV MCH MCHC RDW Plt Count Seg Neutrophils % Carbonic Acid 1.22 1.22 HCO3/H2CO3 Ratio 20:1 20:1 ABG pH 7.40 7.40 ABG pCO2 40.6 40.5 ABG pO2 73.0 L 106.7 H ABG HCO3 24.6 H 24.4 H ABG O2 Saturation 94.7 97.9 ABG Base Excess -0.1 -0.4 FiO2 100% 100% Sodium 139.3 Potassium 3.6 Chloride 96 L Carbon Dioxide 28 Anion Gap 15 BUN 54 H Creatinine 1.96 H Est GFR ( Amer) 41 L Glucose 330 H Lactic Acid Calcium 8.7 Phosphorus Magnesium Total Bilirubin AST Alkaline Phosphatase Ammonia C-Reactive Protein Total Protein Albumin Triglycerides Cholesterol LDL Cholesterol Direct HDL Cholesterol TSH Free T4 Urine Color Urine Appearance Urine pH Ur Specific Iva Urine Protein Urine Glucose (UA) Urine Ketones Urine Blood Urine Nitrite Ur Leukocyte Esterase Urine WBC (Auto) Urine RBC (Auto) 09/14/20 09/14/20 09/14/20 07:45 07:45 07:45 WBC 14.4 H RBC 4.97 Hgb 12.1 L Hct 36.9 L MCV 74 L MCH 24.3 L MCHC 32.8 RDW 16.5 H Plt Count 366 Seg Neutrophils % Not Reportable Carbonic Acid HCO3/H2CO3 Ratio ABG pH ABG pCO2 ABG pO2 ABG HCO3 ABG O2 Saturation ABG Base Excess FiO2 Sodium 137.9 Potassium 3.6 Chloride 99 Carbon Dioxide 24 Anion Gap 15 BUN 55 H Creatinine 1.63 H Est GFR ( Amer) 51 L Glucose 311 H Lactic Acid Calcium 8.2 L Phosphorus 4.7 H Magnesium 3.0 H Total Bilirubin 0.8 AST 133 H Alkaline Phosphatase 65 Ammonia C-Reactive Protein 257.4 H Total Protein 6.4 Albumin 3.2 L Triglycerides 403 H Cholesterol 125.39 LDL Cholesterol Direct 51 HDL Cholesterol 21 L TSH 0.22 L Free T4 1.34 Urine Color Urine Appearance Urine pH Ur Specific Iva Urine Protein Urine Glucose (UA) Urine Ketones Urine Blood Urine Nitrite Ur Leukocyte Esterase Urine WBC (Auto) Urine RBC (Auto) 09/13/20 09/13/20 09/14/20 18:42 18:42 01:40 Creatine Kinase 63 CK-MB (CK-2) 1.04 Troponin I 0.017 0.037 NT-Pro-B Natriuret Pep 110 09/14/20 09/14/20 07:45 07:45 Creatine Kinase CK-MB (CK-2) 1.12 Troponin I 0.015 NT-Pro-B Natriuret Pep 261 H Impressions: KUB X-Ray 09/13/20 19:38 IMPRESSION: Nasogastric tube with the tip in the gastric body. Chest X-Ray 09/14/20 06:00 IMPRESSION: Mild improvement aeration. Support lines and tubes remain in satisfactory position. NG tube has been added. All labs, radiographs, diagnostic studies and EKGs were personally reviewed: Yes In addition, reports of radiographic and diagnostic studies were read: Yes Assessment and Plan - Diagnosis (1) Endotracheally intubated Is this a current diagnosis for this admission?: Yes Plan: Intubated for hypoxic failure. He is on 100% but attempting to wean down. (2) PNA (pneumonia) Qualifiers: Pneumonia type: due to unspecified organism Laterality: bilateral Lung location: unspecified part of lung Qualified Code(s): J18.9 - Pneumonia, unspecified organism Is this a current diagnosis for this admission?: Yes Plan: Bilateral. Unknown if there is an aspiration. Keep on broad spectrum antibiotics. (3) Diabetes mellitus Qualifiers: Diabetes mellitus type: type 2 Diabetes mellitus termite exterminator helper insulin use: without termite exterminator helper use Diabetes mellitus complication status: without complication Qualified Code(s): E11.9 - Type 2 diabetes mellitus without complications Is this a current diagnosis for this admission?: No Plan: Level in the 300s. Needs tighter control. (4) Respiratory failure with hypoxia Qualifiers: Chronicity: acute Qualified Code(s): J96.01 - Acute respiratory failure with hypoxia Is this a current diagnosis for this admission?: Yes Plan: Beginning to wean FIO2. (5) Suspected COVID-19 virus infection Is this a current diagnosis for this admission?: Yes Plan: Awaiting test results. CXR pattern is suspicious. Plan Summary: Wean vent today. Start TF if he is to be on vent more than a day or 2. Critical Time Critical Time (minutes): 35 Level of Care: ICU Anticipated discharge: Home Anticipated DC Timeframe: Other -: 1. The care of a critical patient is a dynamic process. This note is a labor representative synopsis but static in nature. The timeframe for treatments given in order is not necessarily the actual time these treatments may have been done. 2. This patient requires critical care secondary to ongoing requirements for therapy not offered or safe outside the critical care environment. Transfer to a lower level of care will result in altered life or limb morbidity and mortality. 3. Multidisciplinary rounds completed. 4. ABCDE bundle addressed.
[2020-09-14] MEDS: CEFEPIME HCL 2 GM in DEXTROSE 5%-WATER 50 ML IV SCH ×2 (09:33→21:53)
[2020-09-14] MEDS: PANTOPRAZOLE SODIUM 40 MG VIAL IV SCH (09:33)
[2020-09-14] MEDS: VANCOMYCIN HCL 750 MG in DEXTROSE 5%-WATER 250 ML IV SCH (12:28)
[2020-09-14] MEDS ORDERED: INSULIN GLARGINE,HUM.REC.ANLOG 1,000 UNIT/10 ML VIAL (PYX) SUBCUT ONE ×2 (12:30→17:00)
[2020-09-14 13:56] LABS: CREATINE KINASE MB 0.96 ng/mL (<4.55)
[2020-09-14 14:03] LABS: TROPONIN I < 0.012 ng/mL
[2020-09-14] MEDS: ASPIRIN 81 MG TABLET, CHEWABLE PO SCH (16:18)
[2020-09-14] MEDS: INSULIN GLARGINE,HUM.REC.ANLOG 1,000 UNIT/10 ML VIAL SUBCUT SCH (16:19)
[2020-09-14] MEDS ORDERED: VANCOMYCIN HCL INJ 1000 MG VIAL IV ONE (21:21)
[2020-09-14] MEDS ORDERED: INSULIN GLARGINE,HUM.REC.ANLOG 1,000 UNIT/10 ML VIAL SUBCUT SCH (22:00)
[2020-09-14 23:55] LABS: VANCOMYCIN,TROUGH 10.1 ug/mL (5.0-20.0)
[2020-09-15] MEDS: VANCOMYCIN HCL 750 MG in DEXTROSE 5%-WATER 250 ML IV SCH ×2 (00:53→13:01)
[2020-09-15] MEDS: INSULIN REG, HUMAN 100 UNIT/ML 3 ML VIAL (PYX) SUBCUT SCH ×4 (00:54→18:12)
[2020-09-15] MEDS: DEXAMETHASONE SOD PHOSPHATE INJ 4 MG/1 ML VIAL IV SCH ×3 (01:00→18:07)
[2020-09-15] MEDS: PROPOFOL 1,000 MG/100 ML INFUS..BTL IV PRN ×8 (01:40→23:35)
[2020-09-15 03:37] LABS: HEMATOCRIT 38.1 % (37.9-51.0); HEMOGLOBIN 12.4 g/dL (13.5-17.0); MEAN CORPUSCULAR HEMOGLOBIN 24.5 pg (27.0-33.4); MEAN CORPUSCULAR HGB CONC 32.5 g/dL (32.0-36.0); MEAN CORPUSCULAR VOLUME 75 fl (80-97); PLATELET COUNT 421 10^3/uL (150-450); RED BLOOD COUNT 5.06 10^6/uL (4.35-5.55); RED CELL DISTRIBUTION WIDTH 16.7 % (11.5-14.0); WHITE BLOOD COUNT 19.7 10^3/uL (4.0-10.5)
[2020-09-15 03:47] LABS: ALBUMIN 3.3 g/dL (3.5-5.0); ALKALINE PHOSPHATASE 91 U/L (38-126); ANION GAP 12 (5-19); ASPARTATE AMINO TRANSFERASE 85 U/L (17-59); BILIRUBIN,DIRECT 0.7 mg/dL (0.0-0.4); BILIRUBIN,TOTAL 0.8 mg/dL (0.2-1.3); BLOOD UREA NITROGEN 48 mg/dL (7-20); CALCIUM 8.5 mg/dL (8.4-10.2); CARBON DIOXIDE 28 mmol/L (22-30); CHLORIDE 102 mmol/L (98-107); GLUCOSE 296 mg/dL (75-110); POTASSIUM 3.9 mmol/L (3.6-5.0); TOTAL PROTEIN 6.8 g/dL (6.3-8.2)
[2020-09-15 04:15] LABS: SEGMENTED NEUTROPHILS % (MAN) 80 % (42-78); TOTAL CELLS COUNTED 100
[2020-09-15 04:16] LABS: ABSOLUTE LYMPHOCYTES# (MANUAL) 1.2 10^3/uL (0.5-4.7); ABSOLUTE MONOCYTES # (MANUAL) 0.4 10^3/uL (0.1-1.4); BASOPHILS % (MANUAL) 0 % (0-2); EOSINOPHILS % (MANUAL) 0 % (0-6); LYMPHOCYTES % (MANUAL) 6 % (13-45); MONOCYTES % (MANUAL) 2 % (3-13)
[2020-09-15 04:19] LABS: ANISOCYTOSIS 1+; HYPOCHROMASIA SLIGHT; PLATELET COMMENT ADEQUATE; POIKILOCYTOSIS SLIGHT; POLYCHROMASIA SLIGHT
[2020-09-15 04:21] LABS: BAND NEUTROPHILS % (MANUAL) 10 % (3-5); METAMYELOCYTES % (MANUAL) 1 % (0-1); MYELOCYTES % (MANUAL) 1 % (0)
[2020-09-15] MEDS: HEPARIN SOD (PORCINE) 5,000 UNIT/ML 1 ML VIAL SUBCUT SCH ×3 (05:46→21:54)
[2020-09-15] MEDS: INSULIN GLARGINE,HUM.REC.ANLOG 1,000 UNIT/10 ML VIAL SUBCUT SCH ×2 (05:47→18:17)
[2020-09-15 06:12] LABS: ARTERIAL BLOOD BASE EXCESS 1.4 mmol/L; ARTERIAL BLOOD H2CO3 1.23 mmol/L (1.05-1.35); ARTERIAL BLOOD HCO3 25.9 mmol/L (20-24); ARTERIAL BLOOD O2 SATURATION 91.9 % (94-98); ARTERIAL BLOOD PCO2 40.7 mmHg (35-45); ARTERIAL BLOOD PH 7.42 (7.35-7.45); ARTERIAL BLOOD TOTAL CO2 27.2 mmol/L (23-27)
[2020-09-15 06:13] LABS: ARTERIAL BLOOD FIO2 80%
--- NOTE | 2020-09-15 08:42 | RADIOLOGY REPORT (SQ) ---
EXAM DESCRIPTION: CHEST SINGLE VIEW IMAGES COMPLETED DATE/TIME: 09/15/2020 7:08 am REASON FOR STUDY: congestion COMPARISON: 09/14/2020. EXAM PARAMETERS: NUMBER OF VIEWS: One view. TECHNIQUE: Single frontal radiographic view of the chest acquired. RADIATION DOSE: NA LIMITATIONS: None. FINDINGS: LUNGS AND PLEURA: Bilateral pulmonary infiltrates, unchanged. No pleural effusion. No pn eumothorax. MEDIASTINUM AND HILAR STRUCTURES: No masses. Contour normal. HEART AND VASCULAR STRUCTURES: Heart normal in size. Normal vasculature. BONES: No acute findings. HARDWARE: Stable endotracheal tube and nasogastric tube. OTHER: No other significant finding. IMPRESSION: BILATERAL PULMONARY INFILTRATES. NO SIGNIFICANT INTERVAL CHANGE. TECHNICAL DOCUMENTATION: JOB ID: [id number] 2010 [employer]- All Rights Reserved Reading location - IP/workstation name: [email or web address]
[2020-09-15] MEDS ORDERED: CARVEDILOL PHOSPHATE 80 MG PO SCH (10:00)
[2020-09-15] MEDS: RINGERS SOLUTION,LACTATED 1,000 ML IV PRN ×2 (10:00→20:19)
[2020-09-15] MEDS: ASPIRIN 81 MG TABLET, CHEWABLE PO SCH (10:28)
[2020-09-15] MEDS: PANTOPRAZOLE SODIUM 40 MG VIAL IV SCH (10:28)
[2020-09-15] MEDS: ATORVASTATIN CALCIUM 40 MG TABLET PO SCH (10:28)
[2020-09-15] MEDS: CEFEPIME HCL 2 GM in DEXTROSE 5%-WATER 50 ML IV SCH ×2 (10:28→21:53)
[2020-09-15 11:03] LABS: PATH REVIEW PATHOLOGIST REVIEWED
--- NOTE | 2020-09-15 16:06 | PDOC CRITICAL CARE PROG REPORT ---
General Date:: 09/15/20 ICU Day:: 2 Ventilator Day:: 2 Hospital Day:: 2 Resuscitation Status: Full Code Events in the past 12 to 24 Hours:: COVID results are positive. Review of systems relevant to events:: Pulmonary Reason for ICU Addmission:: RESP FAILURE requiring intubation - Medications: Medications reviewed and adjusted accordingly: Yes Vasopressors:: Levophed Sedation:: Diprivan Physical Exam Vital Signs: Temp Pulse Resp BP Pulse Ox 98.2 F 79 26 H 126/75 H 99 09/15/20 15:17 09/15/20 13:56 09/15/20 14:47 09/15/20 15:17 09/15/20 15:17 Intake & Output 09/14/20 09/15/20 09/16/20 06:59 06:59 06:59 Intake Total 561 3202 100 Output Total 1300 2630 350 Balance -739 572 -250 Weight 99.1 kg 100.2 kg Weight/Height Weight 100.2 kg Height 5 ft 9 in General appearance: PRESENT: no acute distress Head exam: PRESENT: atraumatic, normocephalic Eye exam: PRESENT: conjunctiva pink, EOMI, PERRLA. ABSENT: scleral icterus Ear exam: PRESENT: normal external ear exam Mouth exam: PRESENT: moist, tongue midline Respiratory exam: PRESENT: clear to auscultation arturo, rhonchi - Dry rhonchi. ABSENT: rales, wheezes Cardiovascular exam: PRESENT: RRR. ABSENT: diastolic murmur, rubs, systolic murmur GI/Abdominal exam: PRESENT: normal bowel sounds, soft. ABSENT: distended, guarding, mass, organolmegaly, rebound, tenderness Rectal exam: PRESENT: deferred Gentrourinary exam: PRESENT: indwelling catheter Extremities exam: PRESENT: full ROM. ABSENT: calf tenderness, clubbing, pedal edema Musculoskeletal exam: PRESENT: normal inspection Neurological exam: PRESENT: altered, CN II-XII grossly intact, other - Sedated Skin exam: PRESENT: dry, intact, warm. ABSENT: cyanosis, rash Tubes/Lines: PRESENT: Endotracheal Tube, Nasogastic Tube Laboratory/Radiographs Laboratory Results: 09/15/20 02:54 09/15/20 02:54 09/15/20 09/15/20 09/15/20 02:54 02:54 05:55 WBC 19.7 H RBC 5.06 Hgb 12.4 L Hct 38.1 MCV 75 L MCH 24.5 L MCHC 32.5 RDW 16.7 H Plt Count 421 Seg Neutrophils % Not Reportable Carbonic Acid 1.23 HCO3/H2CO3 Ratio 21:1 ABG pH 7.42 ABG pCO2 40.7 ABG pO2 61.0 L ABG HCO3 25.9 H ABG O2 Saturation 91.9 L ABG Base Excess 1.4 FiO2 80% Sodium 141.7 Potassium 3.9 Chloride 102 Carbon Dioxide 28 Anion Gap 12 BUN 48 H Creatinine 1.28 H Est GFR ( Amer) > 60 Glucose 296 H Calcium 8.5 Magnesium 3.1 H Total Bilirubin 0.8 AST 85 H Alkaline Phosphatase 91 Total Protein 6.8 Albumin 3.3 L 09/14/20 01:40 Nasophary (Mrsa Only) MRSA Culture - Final NO MRSA RECOVERED 09/13/20 20:31 Catheterized Urine Urine Culture - Final NO GROWTH 2 DAYS 09/13/20 18:42 Blood Blood Culture (PCR) - Final Staphylococcus Species 09/13/20 09/13/20 09/14/20 18:42 18:42 01:40 Creatine Kinase 63 CK-MB (CK-2) 1.04 Troponin I 0.017 0.037 NT-Pro-B Natriuret Pep 110 09/14/20 09/14/20 09/14/20 07:45 07:45 13:19 Creatine Kinase CK-MB (CK-2) 1.12 0.96 Troponin I 0.015 < 0.012 NT-Pro-B Natriuret Pep 261 H 09/15/20 02:54 Creatine Kinase CK-MB (CK-2) Troponin I NT-Pro-B Natriuret Pep 103 Impressions: KUB X-Ray 09/13/20 19:38 IMPRESSION: Nasogastric tube with the tip in the gastric body. Chest X-Ray 09/15/20 06:00 IMPRESSION: BILATERAL PULMONARY INFILTRATES. NO SIGNIFICANT INTERVAL CHANGE. All labs, radiographs, diagnostic studies and EKGs were personally reviewed: Yes In addition, reports of radiographic and diagnostic studies were read: Yes Assessment and Plan - Diagnosis (1) COVID-19 determined by clinical diagnostic criteria Is this a current diagnosis for this admission?: Yes Plan: Covid test is positive. He is also in a higher risk group being male, black and 70 yo. (2) Endotracheally intubated Is this a current diagnosis for this admission?: Yes Plan: On PEEP of 15 and 80% FIO2. Needs more time on the vent (3) PNA (pneumonia) Qualifiers: Pneumonia type: due to unspecified organism Laterality: bilateral Lung location: unspecified part of lung Qualified Code(s): J18.9 - Pneumonia, unspecified organism Is this a current diagnosis for this admission?: Yes Plan: Stopping vancomcin (4) Diabetes mellitus Qualifiers: Diabetes mellitus type: type 2 Diabetes mellitus senior care insulin use: without digital associate use Diabetes mellitus complication status: without complication Qualified Code(s): E11.9 - Type 2 diabetes mellitus without complications Is this a current diagnosis for this admission?: Yes Plan: Needs better coverage. Will increase lantus. Plan Summary: Wean vent for PEEP and FIO2. Expect prolonged vent course. Critical Time Critical Time (minutes): 35 Level of Care: ICU Anticipated discharge: SNF Anticipated DC Timeframe: Other -: 1. The care of a critical patient is a dynamic process. This note is a customer sales representative synopsis but static in nature. The timeframe for treatments given in order is not necessarily the actual time these treatments may have been done. 2. This patient requires critical care secondary to ongoing requirements for therapy not offered or safe outside the critical care environment. Transfer to a lower level of care will result in altered life or limb morbidity and mortality. 3. Multidisciplinary rounds completed. 4. ABCDE bundle addressed.
[2020-09-15] MEDS: LINEZOLID 600 MG/300 ML RTUPB IV SCH (21:55)
[2020-09-16] MEDS: INSULIN REG, HUMAN 100 UNIT/ML 3 ML VIAL (PYX) SUBCUT SCH ×4 (00:30→18:24)
[2020-09-16] MEDS: DEXAMETHASONE SOD PHOSPHATE INJ 4 MG/1 ML VIAL IV SCH ×3 (02:17→18:00)
--- NOTE | 2020-09-16 06:14 | Operative Report ---
Bedside Procedure - History of Present Illness Indication for Procedure: sepsis Provider: VALERIE CARRION - Central Line Right Internal jugular Time completed: 06:12 Consent obtained: No - medical neccisity Central line pre-insertion: Sterile PPE donned, Chloraprep applied, Sterile drapes applied Central line size (Fr.): 16 Central line lumen type: Triple Anesthetic type: 1% Lidocaine mL's of anesthesia: 5 Ultrasound guided: Yes Line secured with sutures: Yes Central line post-insertion: Blood return from lumens, Biopatch applied, Sutured, Sterile dressing applied, Position confirmed w/ CXR Number of attempts: 1 Complications: No
[2020-09-16] MEDS: HEPARIN SOD (PORCINE) 5,000 UNIT/ML 1 ML VIAL SUBCUT SCH ×3 (06:50→22:31)
[2020-09-16 06:53] LABS: HEMATOCRIT 34.3 % (37.9-51.0); HEMOGLOBIN 11.4 g/dL (13.5-17.0); MEAN CORPUSCULAR HEMOGLOBIN 24.6 pg (27.0-33.4); MEAN CORPUSCULAR HGB CONC 33.3 g/dL (32.0-36.0); MEAN CORPUSCULAR VOLUME 74 fl (80-97); PLATELET COUNT 493 10^3/uL (150-450); RED BLOOD COUNT 4.64 10^6/uL (4.35-5.55); RED CELL DISTRIBUTION WIDTH 16.9 % (11.5-14.0); WHITE BLOOD COUNT 19.7 10^3/uL (4.0-10.5)
[2020-09-16 07:15] LABS: ALBUMIN 2.9 g/dL (3.5-5.0); ALKALINE PHOSPHATASE 89 U/L (38-126); ANION GAP 7 (5-19); ASPARTATE AMINO TRANSFERASE 57 U/L (17-59); BILIRUBIN,DIRECT 0.5 mg/dL (0.0-0.4); BILIRUBIN,TOTAL 0.6 mg/dL (0.2-1.3); BLOOD UREA NITROGEN 35 mg/dL (7-20); CARBON DIOXIDE 31 mmol/L (22-30); CHLORIDE 107 mmol/L (98-107); GLUCOSE 132 mg/dL (75-110); POTASSIUM 4.1 mmol/L (3.6-5.0); TOTAL PROTEIN 6.1 g/dL (6.3-8.2); TRIGLYCERIDES 502 mg/dL (<150)
[2020-09-16 07:19] LABS: INTERNATIONAL RATION (INR) 0.97; PROTHROMBIN TIME 13.1 SEC (11.4-15.4)
[2020-09-16 07:45] LABS: ABSOLUTE LYMPHOCYTES# (MANUAL) 1.4 10^3/uL (0.5-4.7); ABSOLUTE MONOCYTES # (MANUAL) 1.2 10^3/uL (0.1-1.4); BAND NEUTROPHILS % (MANUAL) 3 % (3-5); BASOPHILS % (MANUAL) 0 % (0-2); EOSINOPHILS % (MANUAL) 0 % (0-6); LYMPHOCYTES % (MANUAL) 5 % (13-45); MONOCYTES % (MANUAL) 6 % (3-13); NUCLEATED RED BLOOD CELLS 3 /100 WBC (0); SEGMENTED NEUTROPHILS % (MAN) 84 % (42-78); TOTAL CELLS COUNTED 100
[2020-09-16 07:46] LABS: ANISOCYTOSIS 2+; POIKILOCYTOSIS SLIGHT
[2020-09-16 07:47] LABS: BURR CELLS SLIGHT; OVALOCYTES SLIGHT; PLATELET CLUMPS PRESENT; PLATELET COMMENT INCREASED; TARGET CELLS SLIGHT
[2020-09-16] MEDS: INSULIN GLARGINE,HUM.REC.ANLOG 1,000 UNIT/10 ML VIAL SUBCUT SCH ×2 (07:49→18:25)
[2020-09-16 08:00] LABS: ARTERIAL BLOOD BASE EXCESS 5.6 mmol/L; ARTERIAL BLOOD H2CO3 0.95 mmol/L (1.05-1.35); ARTERIAL BLOOD HCO3 27.6 mmol/L (20-24); ARTERIAL BLOOD O2 SATURATION 96.5 % (94-98); ARTERIAL BLOOD PCO2 31.7 mmHg (35-45); ARTERIAL BLOOD PH 7.56 (7.35-7.45); ARTERIAL BLOOD PO2 73.4 mmHg (80-100); ARTERIAL BLOOD TOTAL CO2 28.6 mmol/L (23-27)
[2020-09-16 08:02] LABS: ARTERIAL BLOOD FIO2 80%
--- NOTE | 2020-09-16 08:22 | RADIOLOGY REPORT (SQ) ---
EXAM DESCRIPTION: CHEST SINGLE VIEW IMAGES COMPLETED DATE/TIME: 09/16/2020 7:04 am REASON FOR STUDY: congestion COMPARISON: 09/15/2020 EXAM PARAMETERS: NUMBER OF VIEWS: One view. TECHNIQUE: Single frontal radiographic view of the chest acquired. RADIATION DOSE: NA LIMITATIONS: None. FINDINGS: LUNGS AND PLEURA: Patchy interstitial and alveolar opacities throughout both lungs, grossl y stable. No large effusion. No pneumothorax. MEDIASTINUM AND HILAR STRUCTURES: Stable. HEART AND VASCULAR STRUCTURES: Normal heart size. BONES: No acute findings. HARDWARE: Endotracheal tube tip overlies midthoracic trachea. New right internal jugular central salo ous catheter tip at right atrium. Enteric tube tip below diaphragm but excluded by collimation. OTHER: No other significant finding. IMPRESSION: Stable chest with multifocal airspace disease throughout both lungs. No significant eff usion. Interval placement of a right internal jugular central venous catheter with tip at right atrium. No pneumothorax. TECHNICAL DOCUMENTATION: JOB ID: [id number] 2010 [employer]- All Rights Reserved Reading location - IP/workstation name: [email or web address]
[2020-09-16] MEDS: RINGERS SOLUTION,LACTATED 1,000 ML IV PRN ×2 (09:42→19:51)
[2020-09-16] MEDS: PROPOFOL 1,000 MG/100 ML INFUS..BTL IV PRN ×3 (09:43→14:46)
[2020-09-16] MEDS: LINEZOLID 600 MG/300 ML RTUPB IV SCH ×2 (09:44→21:18)
[2020-09-16] MEDS: CEFEPIME HCL 2 GM in DEXTROSE 5%-WATER 50 ML IV SCH (09:44)
[2020-09-16] MEDS: ASPIRIN 81 MG TABLET, CHEWABLE PO SCH (09:45)
[2020-09-16] MEDS: PANTOPRAZOLE SODIUM 40 MG VIAL IV SCH (09:45)
[2020-09-16] MEDS: ATORVASTATIN CALCIUM 40 MG TABLET PO SCH (09:45)
[2020-09-16] MEDS ORDERED: CARVEDILOL 12.5 MG TABLET PO SCH (11:00)
--- NOTE | 2020-09-16 11:13 | PDOC CRITICAL CARE PROG REPORT ---
General Date:: 09/16/20 ICU Day:: 3 Ventilator Day:: 3 Hospital Day:: 3 Resuscitation Status: Full Code Events in the past 12 to 24 Hours:: Unable to wean vent much Review of systems relevant to events:: Pulmonary Reason for ICU Addmission:: RESP FAILURE requiring intubation - Medications: Medications reviewed and adjusted accordingly: Yes Vasopressors:: None Sedation:: Diprivan Physical Exam Vital Signs: Temp Pulse Resp BP Pulse Ox 98.6 F 84 29 H 128/78 H 96 09/16/20 08:00 09/16/20 10:00 09/16/20 10:00 09/16/20 10:00 09/16/20 10:00 Intake & Output 09/15/20 09/16/20 09/17/20 06:59 06:59 06:59 Intake Total 4202 3894 50 Output Total 2630 2515 100 Balance 1572 1379 -50 Weight 100.2 kg 101.2 kg Weight/Height Weight 101.2 kg Height 5 ft 9 in General appearance: PRESENT: no acute distress Head exam: PRESENT: atraumatic, normocephalic Eye exam: PRESENT: conjunctiva pink, EOMI, PERRLA. ABSENT: scleral icterus Ear exam: PRESENT: normal external ear exam Mouth exam: PRESENT: moist, tongue midline Respiratory exam: PRESENT: clear to auscultation arturo, rhonchi - Rhonchi are bilateral and sound wetter than yesterday.. ABSENT: rales, wheezes Cardiovascular exam: PRESENT: RRR. ABSENT: diastolic murmur, rubs, systolic murmur GI/Abdominal exam: PRESENT: normal bowel sounds, soft. ABSENT: distended, guarding, mass, organolmegaly, rebound, tenderness Gentrourinary exam: PRESENT: indwelling catheter Extremities exam: PRESENT: full ROM. ABSENT: calf tenderness, clubbing, pedal edema Musculoskeletal exam: PRESENT: normal inspection Neurological exam: PRESENT: other - Sedated Skin exam: PRESENT: dry, intact, warm. ABSENT: cyanosis, rash Tubes/Lines: PRESENT: Endotracheal Tube, Central Line, Nasogastic Tube Laboratory/Radiographs Laboratory Results: 09/16/20 06:40 09/16/20 06:40 09/16/20 09/16/20 09/16/20 06:40 06:40 07:40 WBC 19.7 H RBC 4.64 Hgb 11.4 L Hct 34.3 L MCV 74 L MCH 24.6 L MCHC 33.3 RDW 16.9 H Plt Count 493 H Seg Neutrophils % Not Reportable Carbonic Acid 0.95 L HCO3/H2CO3 Ratio 29:1 ABG pH 7.56 H ABG pCO2 31.7 L ABG pO2 73.4 L ABG HCO3 27.6 H ABG O2 Saturation 96.5 ABG Base Excess 5.6 FiO2 80% Sodium 144.6 Potassium 4.1 Chloride 107 Carbon Dioxide 31 H Anion Gap 7 BUN 35 H Creatinine 0.93 Est GFR ( Amer) > 60 Glucose 132 H Calcium 8.0 L Magnesium 3.1 H Total Bilirubin 0.6 AST 57 Alkaline Phosphatase 89 Total Protein 6.1 L Albumin 2.9 L Triglycerides 502 H 09/14/20 01:40 Tracheal Aspirate Gram Stain - Final 09/14/20 01:40 Tracheal Aspirate Sputum Culture - Final Staphylococcus Aureus Normal Wojciech 09/14/20 01:40 Nasophary (Mrsa Only) MRSA Culture - Final NO MRSA RECOVERED 09/13/20 20:31 Catheterized Urine Urine Culture - Final NO GROWTH 2 DAYS 09/13/20 18:42 Blood Blood Culture (PCR) - Final Staphylococcus Species 09/13/20 09/13/20 09/14/20 18:42 18:42 01:40 Creatine Kinase 63 CK-MB (CK-2) 1.04 Troponin I 0.017 0.037 NT-Pro-B Natriuret Pep 110 09/14/20 09/14/20 09/14/20 07:45 07:45 13:19 Creatine Kinase CK-MB (CK-2) 1.12 0.96 Troponin I 0.015 < 0.012 NT-Pro-B Natriuret Pep 261 H 09/15/20 09/16/20 02:54 06:40 Creatine Kinase CK-MB (CK-2) Troponin I NT-Pro-B Natriuret Pep 103 106 Impressions: KUB X-Ray 09/13/20 19:38 IMPRESSION: Nasogastric tube with the tip in the gastric body. Chest X-Ray 09/16/20 06:00 IMPRESSION: Stable chest with multifocal airspace disease throughout both lungs. No significant effusion. Interval placement of a right internal jugular central venous catheter with tip at right atrium. No pneumothorax. All labs, radiographs, diagnostic studies and EKGs were personally reviewed: Yes In addition, reports of radiographic and diagnostic studies were read: Yes Assessment and Plan - Diagnosis (1) COVID-19 determined by clinical diagnostic criteria Is this a current diagnosis for this admission?: Yes Plan: He is in a high risk group. Thus far we have not been able to make much progress on his vent. (2) Endotracheally intubated Is this a current diagnosis for this admission?: Yes Plan: As above. I predict a protracted vent course. (3) PNA (pneumonia) Qualifiers: Pneumonia type: due to unspecified organism Laterality: bilateral Lung location: unspecified part of lung Qualified Code(s): J18.9 - Pneumonia, unspecified organism Is this a current diagnosis for this admission?: Yes Plan: Tracheal aspirate growing MSSA and normal wojciech. Cefepime stopped. Continue Zyvox. (4) Diabetes mellitus Qualifiers: Diabetes mellitus type: type 2 Diabetes mellitus intermediate card tender insulin use: without intermediate card tender use Diabetes mellitus complication status: without complication Qualified Code(s): E11.9 - Type 2 diabetes mellitus without complications Is this a current diagnosis for this admission?: Yes Plan: Better controlled. Plan Summary: Continue vent and vent weaning as tolerated. Tube feeds and if he survives I predict a SNF stay. Critical Time Critical Time (minutes): 35 Level of Care: ICU Anticipated discharge: SNF Anticipated DC Timeframe: Other -: 1. The care of a critical patient is a dynamic process. This note is a client relations representative synopsis but static in nature. The timeframe for treatments given in order is not necessarily the actual time these treatments may have been done. 2. This patient requires critical care secondary to ongoing requirements for therapy not offered or safe outside the critical care environment. Transfer to a lower level of care will result in altered life or limb morbidity and mortality. 3. Multidisciplinary rounds completed. 4. ABCDE bundle addressed.
[2020-09-16] MEDS: TIMOLOL MALEATE 0.25% OPH SOLN 5 ML OU SCH ×2 (14:47→22:43)
[2020-09-16] MEDS ORDERED: ACETAMINOPHEN 325 MG TABLET NG PRN (17:30)
[2020-09-16] MEDS: DEXMEDETOMIDINE IN NS 400 MCG/100 ML RTUPB IV PRN ×2 (17:42→21:40)
[2020-09-16] MEDS ORDERED: NORMAL SALINE 250 ML IV PRN ×2 (19:15)
[2020-09-16] MEDS ORDERED: FENTANYL CITRATE INJ/PF 100 MCG/2 ML AMPUL IV ONE (19:20)
[2020-09-16] MEDS: CARVEDILOL 12.5 MG TABLET NG SCH (22:30)
[2020-09-16] MEDS: LATANOPROST 0.005% OPH SOLN 2.5 ML OU SCH (22:44)
[2020-09-16] MEDS: ASCORBIC ACID 500 MG TABLET NG SCH (22:44)
[2020-09-16] MEDS ORDERED: SILDENAFIL CITRATE 20 MG TABLET ONE (22:51)
[2020-09-16] MEDS: SILDENAFIL CITRATE 20 MG TABLET PO SCH (22:54)
[2020-09-17] MEDS: INSULIN REG, HUMAN 100 UNIT/ML 3 ML VIAL (PYX) SUBCUT SCH ×4 (00:44→17:55)
[2020-09-17] MEDS: DEXAMETHASONE SOD PHOSPHATE INJ 4 MG/1 ML VIAL IV SCH ×3 (01:00→18:06)
[2020-09-17] MEDS: DEXMEDETOMIDINE IN NS 400 MCG/100 ML RTUPB IV PRN ×6 (01:30→22:13)
[2020-09-17] MEDS: FENTANYL CITRATE INJ/PF 100 MCG/2 ML AMPUL IV PRN ×2 (01:43→09:18)
[2020-09-17 05:01] LABS: ARTERIAL BLOOD BASE EXCESS 3.8 mmol/L; ARTERIAL BLOOD H2CO3 1.17 mmol/L (1.05-1.35); ARTERIAL BLOOD HCO3 27.6 mmol/L (20-24); ARTERIAL BLOOD PCO2 38.9 mmHg (35-45); ARTERIAL BLOOD PH 7.47 (7.35-7.45); ARTERIAL BLOOD PO2 76.3 mmHg (80-100); ARTERIAL BLOOD TOTAL CO2 28.8 mmol/L (23-27)
[2020-09-17 05:05] LABS: ARTERIAL BLOOD FIO2 90%
[2020-09-17 05:13] LABS: ANION GAP 5 (5-19); BLOOD UREA NITROGEN 28 mg/dL (7-20); CALCIUM 8.3 mg/dL (8.4-10.2); CARBON DIOXIDE 33 mmol/L (22-30); CHLORIDE 106 mmol/L (98-107); GLUCOSE 99 mg/dL (75-110); POTASSIUM 4.9 mmol/L (3.6-5.0)
[2020-09-17] MEDS: HEPARIN SOD (PORCINE) 5,000 UNIT/ML 1 ML VIAL SUBCUT SCH ×3 (05:23→21:48)
[2020-09-17 05:28] LABS: HEMATOCRIT 40.6 % (37.9-51.0); MEAN CORPUSCULAR VOLUME 75 fl (80-97); PLATELET COUNT 588 10^3/uL (150-450); RED BLOOD COUNT 5.42 10^6/uL (4.35-5.55); RED CELL DISTRIBUTION WIDTH 16.3 % (11.5-14.0); WHITE BLOOD COUNT 22.9 10^3/uL (4.0-10.5)
[2020-09-17] MEDS: INSULIN GLARGINE,HUM.REC.ANLOG 1,000 UNIT/10 ML VIAL SUBCUT SCH ×2 (05:32→17:55)
[2020-09-17 06:01] LABS: ABSOLUTE LYMPHOCYTES# (MANUAL) 2.3 10^3/uL (0.5-4.7); ABSOLUTE MONOCYTES # (MANUAL) 0.2 10^3/uL (0.1-1.4); BASOPHILS % (MANUAL) 0 % (0-2); EOSINOPHILS % (MANUAL) 0 % (0-6); LYMPHOCYTES % (MANUAL) 9 % (13-45); METAMYELOCYTES % (MANUAL) 1 % (0-1); MONOCYTES % (MANUAL) 1 % (3-13); NUCLEATED RED BLOOD CELLS 4 /100 WBC (0); SEGMENTED NEUTROPHILS % (MAN) 87 % (42-78); TOTAL CELLS COUNTED 100
[2020-09-17 06:08] LABS: ANISOCYTOSIS 1+; BURR CELLS 1+; OVALOCYTES 2+; POIKILOCYTOSIS 1+; SCHISTOCYTES 1+; TOXIC GRANULATION SLIGHT; TOXIC VACUOLATION PRESENT
[2020-09-17 06:09] LABS: PLATELET COMMENT ADEQUATE; TEAR DROP CELLS 1+
[2020-09-17 06:10] LABS: MYELOCYTES % (MANUAL) 1 % (0)
[2020-09-17] MEDS: RINGERS SOLUTION,LACTATED 1,000 ML IV PRN (09:11)
[2020-09-17] MEDS ORDERED: ETOMIDATE INJ/PF 20 MG/10 ML SDV IV ONE (09:13)
--- NOTE | 2020-09-17 09:36 | Operative Report ---
Bedside Procedure - History of Present Illness History of Present Illness: 70 year old male who was found at home by his with AMS and shallow respiratory efforts. EMS was called and the patient was found to by hypoxic and was intubated in the home. The patient was transported to [facility] and evaluated by the ED provider.The patient has a past medical hisotry to include DM, HTN, and hyperlipidemia per the spouse. She denies any cardiac history. Chest xray revealed bilateral PNA and the pateint was given zosyn and vancomycin in the ED. The patient was also give lasix 20mg and bumes 1 mg. Lab results revealed a BNP to only be in the 100 range. The patient remained hypoxic with sats in the low to mid 80's and improved with vent adjustment and adequate sedation. Critical care was consulted for admission and management of this patient. I I sawthe patient in the ED and made vent adjustment with improvement in saturation to low 90's. A complete review of systems was unable to obtain due to intubation and sedation. Indication for Procedure: Self extubation Date: 09/17/20 Provider: SARAI HAWKINS - Intubation Orotracheal Time of Intubation: 09:30 Airway evaluation: Normal anatomy Mallampati Classification: Class 2 Medications: Etomidate, Succinylcholine Intubation method: Orotracheal Blade type: Pema Blade size: 4 Equipment used: Glidescope ETT size: 7.0 ETT secured at: Teeth ETT secured at (cm): 22 Post Intubation Xray: Yes Intubation Complications: No complications
--- NOTE | 2020-09-17 09:48 | PDOC CRITICAL CARE PROG REPORT ---
General Date:: 09/17/20 ICU Day:: 4 Ventilator Day:: 4 Hospital Day:: 4 Resuscitation Status: Full Code Events in the past 12 to 24 Hours:: Self extubated this AM and reintubated. Review of systems relevant to events:: Pulmonary Reason for ICU Addmission:: RESP FAILURE requiring intubation - Medications: Medications reviewed and adjusted accordingly: Yes Vasopressors:: None Sedation:: Precedex Physical Exam Vital Signs: Temp Pulse Resp BP Pulse Ox 98.1 F 57 L 30 H 161/79 H 95 09/17/20 08:50 09/17/20 07:20 09/17/20 08:50 09/17/20 08:50 09/17/20 08:50 Intake & Output 09/16/20 09/17/20 09/18/20 06:59 06:59 06:59 Intake Total 3894 2487 Output Total 2515 2915 25 Balance 1379 -428 -25 Weight 101.2 kg 100.9 kg 100.9 kg Weight/Height Weight 100.9 kg Height 5 ft 9 in General appearance: PRESENT: no acute distress, obese Head exam: PRESENT: atraumatic, normocephalic Eye exam: PRESENT: conjunctiva pink, EOMI, PERRLA. ABSENT: scleral icterus Ear exam: PRESENT: normal external ear exam Mouth exam: PRESENT: moist, tongue midline Respiratory exam: PRESENT: rhonchi - Coarse, tachypnea Cardiovascular exam: PRESENT: RRR. ABSENT: diastolic murmur, rubs, systolic murmur GI/Abdominal exam: PRESENT: normal bowel sounds, soft. ABSENT: distended, guar ding, mass, organolmegaly, rebound, tenderness Rectal exam: PRESENT: deferred Gentrourinary exam: PRESENT: indwelling catheter Extremities exam: PRESENT: full ROM. ABSENT: calf tenderness, clubbing, pedal edema Musculoskeletal exam: PRESENT: normal inspection Neurological exam: PRESENT: altered, awake Psychiatric exam: PRESENT: agitated Skin exam: PRESENT: dry, intact, warm. ABSENT: cyanosis, rash Tubes/Lines: PRESENT: Endotracheal Tube, Nasogastic Tube Laboratory/Radiographs Laboratory Results: 09/17/20 04:35 09/17/20 04:35 09/16/20 09/17/20 09/17/20 23:00 04:35 04:35 WBC RBC Hgb Hct MCV MCH MCHC RDW Plt Count Seg Neutrophils % Carbonic Acid 1.17 HCO3/H2CO3 Ratio 23:1 ABG pH 7.47 H ABG pCO2 38.9 ABG pO2 76.3 L ABG HCO3 27.6 H ABG O2 Saturation 96.0 ABG Base Excess 3.8 FiO2 90% Sodium 143.8 Potassium 4.9 Chloride 106 Carbon Dioxide 33 H Anion Gap 5 BUN 28 H Creatinine 0.79 Est GFR ( Amer) > 60 Glucose 99 Calcium 8.3 L Blood Type B POSITIVE Antibody Screen NEGATIVE 09/17/20 04:35 WBC 22.9 H RBC 5.42 Hgb 13.0 L Hct 40.6 MCV 75 L MCH 24.0 L MCHC 32.0 RDW 16.3 H Plt Count 588 H Seg Neutrophils % Not Reportable Carbonic Acid HCO3/H2CO3 Ratio ABG pH ABG pCO2 ABG pO2 ABG HCO3 ABG O2 Saturation ABG Base Excess FiO2 Sodium Potassium Chloride Carbon Dioxide Anion Gap BUN Creatinine Est GFR ( Amer) Glucose Calcium Blood Type Antibody Screen 09/13/20 18:42 Blood Blood Culture (PCR) - Final Staphylococcus Species 09/13/20 18:42 Blood Blood Culture - Final Staphylococcus Hominis 09/14/20 01:40 Tracheal Aspirate Gram Stain - Final 09/14/20 01:40 Tracheal Aspirate Sputum Culture - Final Staphylococcus Aureus Normal Marleen 09/13/20 09/13/20 09/14/20 18:42 18:42 01:40 Creatine Kinase 63 CK-MB (CK-2) 1.04 Troponin I 0.017 0.037 NT-Pro-B Natriuret Pep 110 09/14/20 09/14/20 09/14/20 07:45 07:45 13:19 Creatine Kinase CK-MB (CK-2) 1.12 0.96 Troponin I 0.015 < 0.012 NT-Pro-B Natriuret Pep 261 H 09/15/20 09/16/20 02:54 06:40 Creatine Kinase CK-MB (CK-2) Troponin I NT-Pro-B Natriuret Pep 103 106 Impressions: KUB X-Ray 09/13/20 19:38 IMPRESSION: Nasogastric tube with the tip in the gastric body. Chest X-Ray 09/16/20 06:00 IMPRESSION: Stable chest with multifocal airspace disease throughout both lungs. No significant effusion. Interval placement of a right internal jugular central venous catheter with tip at right atrium. No pneumothorax. All labs, radiographs, diagnostic studies and EKGs were personally reviewed: Yes In addition, reports of radiographic and diagnostic studies were read: Yes Assessment and Plan - Diagnosis (1) ARDS (adult respiratory distress syndrome) Is this a current diagnosis for this admission?: Yes Plan: His CXR shows fluffy bilateral infiltrates with a PAO2/FIO2 ratio of 84 C/W ARDS by [place] criteria. Low volume ventilation as tolerated. (2) COVID-19 determined by clinical diagnostic criteria Is this a current diagnosis for this admission?: Yes Plan: Still not ready to wean much. Needs heavier sedation to avoid further self- extubation. Fentanyl drip ordered. (3) Endotracheally intubated Is this a current diagnosis for this admission?: Yes Plan: Now re-intubated (4) PNA (pneumonia) Qualifiers: Pneumonia type: due to unspecified organism Laterality: bilateral Lung location: unspecified part of lung Qualified Code(s): J18.9 - Pneumonia, unspecified organism Is this a current diagnosis for this admission?: Yes Plan: Continue antibiotics. (5) Diabetes mellitus Qualifiers: Diabetes mellitus type: type 2 Diabetes mellitus delicatessen clerk insulin use: without half-way use Diabetes mellitus complication status: without complication Qualified Code(s): E11.9 - Type 2 diabetes mellitus without complications Is this a current diagnosis for this admission?: Yes Plan: Controlled. Plan Summary: Low volume ventilation, not ready for extubation. On decadron. Critical Time Critical Time (minutes): 40 Level of Care: ICU Anticipated discharge: Home Anticipated DC Timeframe: Other -: 1. The care of a critical patient is a dynamic process. This note is a technical service representative synopsis but static in nature. The timeframe for treatments given in order is not necessarily the actual time these treatments may have been done. 2. This patient requires critical care secondary to ongoing requirements for therapy not offered or safe outside the critical care environment. Transfer to a lower level of care will result in altered life or limb morbidity and mortality. 3. Multidisciplinary rounds completed. 4. ABCDE bundle addressed.
--- NOTE | 2020-09-17 10:45 | RADIOLOGY REPORT (SQ) ---
EXAM DESCRIPTION: CHEST SINGLE VIEW IMAGES COMPLETED DATE/TIME: 09/17/2020 8:56 am REASON FOR STUDY: ETT placement COMPARISON: 09/16/2020 EXAM PARAMETERS: NUMBER OF VIEWS: One view. TECHNIQUE: Single frontal radiographic view of the chest acquired. RADIATION DOSE: NA LIMITATIONS: None. FINDINGS: LUNGS AND PLEURA: Persistent consolidation in the right upper lobe and throughout lower le ft lung. No pneumothorax. MEDIASTINUM AND HILAR STRUCTURES: No masses. Contour normal. HEART AND VASCULAR STRUCTURES: Heart normal in size. Normal vasculature. BONES: No acute findings. HARDWARE: Endotracheal tube with tip in the midthoracic trachea unchanged. Esophagogastric tube tip extends below the diaphragm out of the field of view. Right IJ central venous catheter with tip in t he right atrium unchanged. OTHER: No other significant finding. IMPRESSION: No significant interval change. TECHNICAL DOCUMENTATION: JOB ID: [id number] 2010 [employer]- All Rights Reserved Reading location - IP/workstation name: [email or web address]
--- NOTE | 2020-09-17 10:46 | RADIOLOGY REPORT (SQ) ---
EXAM DESCRIPTION: KUB/ABDOMEN (SINGLE VIEW) IMAGES COMPLETED DATE/TIME: 09/17/2020 9:56 am REASON FOR STUDY: OGT placement COMPARISON: None. NUMBER OF VIEWS: One view. TECHNIQUE: Supine radiographic image of the abdomen acquired for nasogastric tube placement. LIMITATIONS: Upper abdomen only FINDINGS: Nasogastric tube tip and side port in the stomach. Stomach decompressed. Few air-filled nondistended small bowel loops, and air bubbles in nondistended colon in the visualize d upper abdomen. IMPRESSION: Nasogastric tube tip and side port in the stomach TECHNICAL DOCUMENTATION: JOB ID: [id number] 2010 [employer]- All Rights Reserved Reading location - IP/workstation name: [email or web address]
[2020-09-17] MEDS: LINEZOLID 600 MG/300 ML RTUPB IV SCH ×2 (11:02→21:48)
[2020-09-17] MEDS: CARVEDILOL 12.5 MG TABLET NG SCH ×2 (11:02→21:48)
[2020-09-17] MEDS: SILDENAFIL CITRATE 20 MG TABLET PO SCH (11:02)
[2020-09-17] MEDS: AMINO AC/PROTEIN HYDR/WHEY PRO 11 GM/45 ML PKT NG SCH ×4 (11:03→21:47)
[2020-09-17] MEDS: PANTOPRAZOLE SODIUM 40 MG VIAL IV SCH (11:03)
[2020-09-17] MEDS: ASCORBIC ACID 500 MG TABLET NG SCH ×2 (11:03→17:43)
[2020-09-17] MEDS: TIMOLOL MALEATE 0.25% OPH SOLN 5 ML OU SCH ×2 (11:03→21:49)
[2020-09-17] MEDS: ATORVASTATIN CALCIUM 40 MG TABLET NG SCH (11:03)
[2020-09-17] MEDS: ASPIRIN 81 MG TABLET, CHEWABLE NG SCH (11:04)
[2020-09-17] MEDS ORDERED: FENTANYL CITRATE INJ/PF 100 MCG/2 ML AMPUL ONE (12:25)
[2020-09-17] MEDS: FENTANYL CITRATE/PF 600 MCG/60 ML BAG IV PRN ×3 (12:40→23:46)
[2020-09-17] MEDS ORDERED: FENTANYL CITRATE INJ/PF 100 MCG/2 ML AMPUL IV ONE ×2 (12:45→13:00)
[2020-09-17] MEDS ORDERED: SUCCINYLCHOLINE CHLORIDE INJ 200 MG/10 ML VIAL ONE (14:18)
[2020-09-17] MEDS: DEXTROSE 50%-WATER 25 GM/50 ML DISP.SYRIN IV PRN ×2 (16:56→23:45)
[2020-09-17] MEDS: LATANOPROST 0.005% OPH SOLN 2.5 ML OU SCH (22:02)
[2020-09-17] MEDS ORDERED: LORAZEPAM INJ 2 MG/1 ML VIAL IV PRN (23:22)
[2020-09-17] MEDS ORDERED: IPRATROPIUM/ALBUTEROL 0.5-2.5 MG/3 ML AMPUL NEB PRN (23:53)
[2020-09-17] MEDS ORDERED: IPRATROPIUM/ALBUTEROL 0.5-2.5 MG/3 ML AMPUL NEB ONE (23:54)
[2020-09-18] MEDS: INSULIN REG, HUMAN 100 UNIT/ML 3 ML VIAL (PYX) SUBCUT SCH ×4 (00:04→17:11)
[2020-09-18] MEDS ORDERED: MIDAZOLAM HCL 50 MG/100 ML RTUINJ ONE (00:36)
[2020-09-18] MEDS ORDERED: VECURONIUM BROMIDE INJ 10 MG VIAL IV ONE ×2 (01:21→01:23)
[2020-09-18] MEDS: MIDAZOLAM HCL 50 MG/100 ML RTUINJ IV PRN ×3 (01:30→16:52)
[2020-09-18] MEDS: DEXAMETHASONE SOD PHOSPHATE INJ 4 MG/1 ML VIAL IV SCH ×3 (01:31→17:11)
[2020-09-18] MEDS: FENTANYL CITRATE/PF 600 MCG/60 ML BAG IV PRN ×6 (04:00→22:23)
[2020-09-18] MEDS: INSULIN GLARGINE,HUM.REC.ANLOG 1,000 UNIT/10 ML VIAL SUBCUT SCH ×2 (05:43→17:19)
[2020-09-18] MEDS: HEPARIN SOD (PORCINE) 5,000 UNIT/ML 1 ML VIAL SUBCUT SCH ×3 (05:44→22:12)
[2020-09-18] MEDS: RINGERS SOLUTION,LACTATED 1,000 ML IV PRN ×2 (06:06→21:53)
[2020-09-18 06:35] LABS: ARTERIAL BLOOD BASE EXCESS 5.7 mmol/L; ARTERIAL BLOOD H2CO3 1.12 mmol/L (1.05-1.35); ARTERIAL BLOOD HCO3 28.9 mmol/L (20-24); ARTERIAL BLOOD PCO2 37.1 mmHg (35-45); ARTERIAL BLOOD PH 7.51 (7.35-7.45); ARTERIAL BLOOD PO2 67.4 mmHg (80-100)
[2020-09-18 06:36] LABS: ARTERIAL BLOOD FIO2 100%
[2020-09-18 06:41] LABS: ALBUMIN 2.6 g/dL (3.5-5.0); ALKALINE PHOSPHATASE 109 U/L (38-126); ASPARTATE AMINO TRANSFERASE 51 U/L (17-59); BILIRUBIN,DIRECT 0.4 mg/dL (0.0-0.4); BILIRUBIN,TOTAL 0.7 mg/dL (0.2-1.3); BLOOD UREA NITROGEN 25 mg/dL (7-20); CALCIUM 8.1 mg/dL (8.4-10.2); POTASSIUM 4.4 mmol/L (3.6-5.0); TOTAL PROTEIN 5.8 g/dL (6.3-8.2)
[2020-09-18 06:43] LABS: HEMOGLOBIN 12.7 g/dL (13.5-17.0); MEAN CORPUSCULAR HEMOGLOBIN 24.4 pg (27.0-33.4); MEAN CORPUSCULAR HGB CONC 32.5 g/dL (32.0-36.0); MEAN CORPUSCULAR VOLUME 75 fl (80-97); PLATELET COUNT 482 10^3/uL (150-450); WHITE BLOOD COUNT 18.2 10^3/uL (4.0-10.5)
[2020-09-18 06:46] LABS: CARBON DIOXIDE 31 mmol/L (22-30); CHLORIDE 107 mmol/L (98-107)
[2020-09-18 06:49] LABS: GLUCOSE 59 mg/dL (75-110)
[2020-09-18 06:54] LABS: ANION GAP 3 (5-19)
[2020-09-18] MEDS: DEXTROSE 50%-WATER 25 GM/50 ML DISP.SYRIN IV PRN (07:09)
[2020-09-18 07:41] LABS: ABSOLUTE LYMPHOCYTES# (MANUAL) 1.3 10^3/uL (0.5-4.7); ABSOLUTE MONOCYTES # (MANUAL) 0.4 10^3/uL (0.1-1.4); BAND NEUTROPHILS % (MANUAL) 5 % (3-5); BASOPHILS % (MANUAL) 0 % (0-2); EOSINOPHILS % (MANUAL) 0 % (0-6); LYMPHOCYTES % (MANUAL) 7 % (13-45); MONOCYTES % (MANUAL) 2 % (3-13); SEGMENTED NEUTROPHILS % (MAN) 86 % (42-78); TOTAL CELLS COUNTED 100
[2020-09-18 07:43] LABS: ANISOCYTOSIS 1+; BURR CELLS SLIGHT; HYPOCHROMASIA 1+; OVALOCYTES 1+; PLATELET CLUMPS PRESENT; PLATELET COMMENT ADEQUATE
--- NOTE | 2020-09-18 09:16 | PDOC CRITICAL CARE PROG REPORT ---
General Date:: 09/18/20 ICU Day:: 5 Ventilator Day:: 5 Hospital Day:: 5 Resuscitation Status: Full Code Events in the past 12 to 24 Hours:: Oxygenation worsened and patient proned Review of systems relevant to events:: Pulmoary. Reason for ICU Addmission:: RESP FAILURE requiring intubation - Medications: Medications reviewed and adjusted accordingly: Yes Vasopressors:: None Sedation:: Versed, Precedex infusions Physical Exam Vital Signs: Temp Pulse Resp BP Pulse Ox 97.9 F 60 35 H 158/82 H 94 09/18/20 06:00 09/18/20 00:03 09/18/20 06:00 09/18/20 05:50 09/18/20 06:00 Intake & Output 09/17/20 09/18/20 09/19/20 06:59 06:59 06:59 Intake Total 2560 3080 Output Total 2915 1970 90 Balance -355 1110 -90 Weight 100.9 kg 95.2 kg Weight/Height Weight 95.2 kg Height 5 ft 9 in General appearance: PRESENT: no acute distress, obese Head exam: PRESENT: atraumatic, normocephalic Eye exam: PRESENT: conjunctiva pink - not under pressure while proned, other. ABSENT: scleral icterus Ear exam: PRESENT: normal external ear exam Mouth exam: PRESENT: moist, tongue midline Neck exam: PRESENT: other - He is not hyperextended Respiratory exam: PRESENT: decreased breath sounds, rhonchi, symmetrical, tachypnea Cardiovascular exam: PRESENT: bradycardia, RRR. ABSENT: diastolic murmur, rubs, systolic murmur GI/Abdominal exam: PRESENT: normal bowel sounds, soft. ABSENT: distended, guarding, mass, organolmegaly, rebound, tenderness Rectal exam: PRESENT: deferred Gentrourinary exam: PRESENT: indwelling catheter, other - Penis not under pressure while proned. Laboratory/Radiographs Laboratory Results: 09/18/20 06:00 09/18/20 06:00 09/16/20 09/18/20 09/18/20 23:00 06:00 06:00 WBC RBC Hgb Hct MCV MCH MCHC RDW Plt Count Seg Neutrophils % Carbonic Acid 1.12 HCO3/H2CO3 Ratio 25:1 ABG pH 7.51 H ABG pCO2 37.1 ABG pO2 67.4 L ABG HCO3 28.9 H ABG O2 Saturation 95.0 ABG Base Excess 5.7 FiO2 100% Sodium 141.1 Potassium 4.4 Chloride 107 Carbon Dioxide 31 H Anion Gap 3 L BUN 25 H Creatinine 0.62 Est GFR ( Amer) > 60 Glucose 59 L Calcium 8.1 L Magnesium 2.4 H Total Bilirubin 0.7 AST 51 Alkaline Phosphatase 109 Total Protein 5.8 L Albumin 2.6 L Blood Type B POSITIVE Antibody Screen NEGATIVE 09/18/20 06:00 WBC 18.2 H RBC 5.20 Hgb 12.7 L Hct 39.0 MCV 75 L MCH 24.4 L MCHC 32.5 RDW 17.0 H Plt Count 482 H Seg Neutrophils % Not Reportable Carbonic Acid HCO3/H2CO3 Ratio ABG pH ABG pCO2 ABG pO2 ABG HCO3 ABG O2 Saturation ABG Base Excess FiO2 Sodium Potassium Chloride Carbon Dioxide Anion Gap BUN Creatinine Est GFR ( Amer) Glucose Calcium Magnesium Total Bilirubin AST Alkaline Phosphatase Total Protein Albumin Blood Type Antibody Screen 09/13/20 18:42 Blood Blood Culture (PCR) - Final Staphylococcus Species 09/13/20 09/13/20 09/14/20 18:42 18:42 01:40 Creatine Kinase 63 CK-MB (CK-2) 1.04 Troponin I 0.017 0.037 NT-Pro-B Natriuret Pep 110 09/14/20 09/14/20 09/14/20 07:45 07:45 13:19 Creatine Kinase CK-MB (CK-2) 1.12 0.96 Troponin I 0.015 < 0.012 NT-Pro-B Natriuret Pep 261 H 09/15/20 09/16/20 02:54 06:40 Creatine Kinase CK-MB (CK-2) Troponin I NT-Pro-B Natriuret Pep 103 106 Impressions: Chest X-Ray 09/17/20 09:30 IMPRESSION: No significant interval change. KUB X-Ray 09/17/20 09:30 IMPRESSION: Nasogastric tube tip and side port in the stomach All labs, radiographs, diagnostic studies and EKGs were personally reviewed: Yes In addition, reports of radiographic and diagnostic studies were read: Yes Assessment and Plan - Diagnosis (1) ARDS (adult respiratory distress syndrome) Is this a current diagnosis for this admission?: Yes Plan: With desaturation last night on 100% the patient was placed in a prone position and saturations came up to 94% from about 80. We will try 16 hours prone and 8 supine if tolerated. (2) COVID-19 determined by clinical diagnostic criteria Is this a current diagnosis for this admission?: Yes Plan: The cause of his ARDS/PNA. (3) Endotracheally intubated Is this a current diagnosis for this admission?: Yes Plan: I anticipate a prolonged intubation. (4) PNA (pneumonia) Qualifiers: Pneumonia type: due to unspecified organism Laterality: bilateral Lung location: unspecified part of lung Qualified Code(s): J18.9 - Pneumonia, unspecified organism Is this a current diagnosis for this admission?: Yes Plan: MSSA is growing in sputum. (5) Diabetes mellitus Qualifiers: Diabetes mellitus type: type 2 Diabetes mellitus senior care insulin use: without termite control service representative use Diabetes mellitus complication status: without complication Qualified Code(s): E11.9 - Type 2 diabetes mellitus without complications Is this a current diagnosis for this admission?: Yes Plan: Lantus decreased for relatively low BG. 35u to 25u q12h. Plan Summary: Keep proned 16 hours and then try supine. No changes in vent today. Critical Time Critical Time (minutes): 35 Level of Care: ICU Anticipated discharge: SNF Anticipated DC Timeframe: Other -: 1. The care of a critical patient is a dynamic process. This note is a textile designs sales representative synopsis but static in nature. The timeframe for treatments given in order is not necessarily the actual time these treatments may have been done. 2. This patient requires critical care secondary to ongoing requirements for therapy not offered or safe outside the critical care environment. Transfer to a lower level of care will result in altered life or limb morbidity and mortality. 3. Multidisciplinary rounds completed. 4. ABCDE bundle addressed.
[2020-09-18] MEDS: AMINO AC/PROTEIN HYDR/WHEY PRO 11 GM/45 ML PKT NG SCH ×4 (09:32→22:14)
[2020-09-18] MEDS: ASCORBIC ACID 500 MG TABLET NG SCH ×2 (09:33→17:11)
[2020-09-18] MEDS: ASPIRIN 81 MG TABLET, CHEWABLE NG SCH (09:34)
[2020-09-18] MEDS: ATORVASTATIN CALCIUM 40 MG TABLET NG SCH (09:34)
[2020-09-18] MEDS: PANTOPRAZOLE SODIUM 40 MG VIAL IV SCH (09:36)
[2020-09-18] MEDS: TIMOLOL MALEATE 0.25% OPH SOLN 5 ML OU SCH ×2 (09:41→22:13)
[2020-09-18] MEDS: SILDENAFIL CITRATE 20 MG TABLET PO SCH (09:41)
[2020-09-18] MEDS: LINEZOLID 600 MG/300 ML RTUPB IV SCH ×2 (11:11→22:14)
[2020-09-18] MEDS: CARVEDILOL 12.5 MG TABLET NG SCH ×2 (11:51→22:12)
[2020-09-18] MEDS: LATANOPROST 0.005% OPH SOLN 2.5 ML OU SCH (22:13)
[2020-09-19] MEDS: INSULIN REG, HUMAN 100 UNIT/ML 3 ML VIAL (PYX) SUBCUT SCH ×5 (00:46→23:24)
[2020-09-19] MEDS: MIDAZOLAM HCL 50 MG/100 ML RTUINJ IV PRN ×4 (02:14→23:23)
[2020-09-19] MEDS: FENTANYL CITRATE/PF 600 MCG/60 ML BAG IV PRN ×5 (02:14→23:24)
[2020-09-19] MEDS: DEXAMETHASONE SOD PHOSPHATE INJ 4 MG/1 ML VIAL IV SCH ×3 (03:19→18:12)
[2020-09-19 03:53] LABS: ARTERIAL BLOOD BASE EXCESS 3.3 mmol/L; ARTERIAL BLOOD H2CO3 1.19 mmol/L (1.05-1.35); ARTERIAL BLOOD HCO3 27.3 mmol/L (20-24); ARTERIAL BLOOD O2 SATURATION 97.5 % (94-98); ARTERIAL BLOOD PCO2 39.6 mmHg (35-45); ARTERIAL BLOOD PH 7.46 (7.35-7.45); ARTERIAL BLOOD PO2 93.6 mmHg (80-100); ARTERIAL BLOOD TOTAL CO2 28.6 mmol/L (23-27)
[2020-09-19 03:54] LABS: ARTERIAL BLOOD FIO2 100%
[2020-09-19 03:59] LABS: HEMATOCRIT 34.7 % (37.9-51.0); HEMOGLOBIN 11.3 g/dL (13.5-17.0); MEAN CORPUSCULAR HEMOGLOBIN 24.4 pg (27.0-33.4); MEAN CORPUSCULAR HGB CONC 32.5 g/dL (32.0-36.0); MEAN CORPUSCULAR VOLUME 75 fl (80-97); PLATELET COUNT 447 10^3/uL (150-450); RED BLOOD COUNT 4.63 10^6/uL (4.35-5.55); RED CELL DISTRIBUTION WIDTH 16.4 % (11.5-14.0); WHITE BLOOD COUNT 15.3 10^3/uL (4.0-10.5)
[2020-09-19 04:09] LABS: ANION GAP 5 (5-19); CALCIUM 7.8 mg/dL (8.4-10.2); CARBON DIOXIDE 30 mmol/L (22-30); CHLORIDE 104 mmol/L (98-107); GLUCOSE 179 mg/dL (75-110); POTASSIUM 4.5 mmol/L (3.6-5.0)
[2020-09-19 04:10] LABS: BLOOD UREA NITROGEN 47 mg/dL (7-20)
[2020-09-19 04:52] LABS: ABSOLUTE LYMPHOCYTES# (MANUAL) 1.1 10^3/uL (0.5-4.7); ABSOLUTE MONOCYTES # (MANUAL) 0.9 10^3/uL (0.1-1.4); BAND NEUTROPHILS % (MANUAL) 4 % (3-5); BASOPHILS % (MANUAL) 0 % (0-2); EOSINOPHILS % (MANUAL) 0 % (0-6); LYMPHOCYTES % (MANUAL) 7 % (13-45); METAMYELOCYTES % (MANUAL) 1 % (0-1); MONOCYTES % (MANUAL) 6 % (3-13); SEGMENTED NEUTROPHILS % (MAN) 82 % (42-78); TOTAL CELLS COUNTED 100
[2020-09-19 04:53] LABS: BURR CELLS 1+; OVALOCYTES 2+; PLATELET COMMENT ADEQUATE; POIKILOCYTOSIS 1+; TEAR DROP CELLS 1+
[2020-09-19] MEDS: HEPARIN SOD (PORCINE) 5,000 UNIT/ML 1 ML VIAL SUBCUT SCH ×2 (05:50→15:00)
[2020-09-19] MEDS: INSULIN GLARGINE,HUM.REC.ANLOG 1,000 UNIT/10 ML VIAL SUBCUT SCH ×2 (05:51→18:08)
[2020-09-19] MEDS ORDERED: ACETAMINOPHEN SOLN 325 MG/10.15 ML UDCUP NG PRN (07:39)
[2020-09-19] MEDS: PANTOPRAZOLE SODIUM 40 MG VIAL IV SCH (09:11)
[2020-09-19] MEDS: ATORVASTATIN CALCIUM 40 MG TABLET NG SCH (09:11)
[2020-09-19] MEDS: ASCORBIC ACID 500 MG TABLET NG SCH ×2 (09:11→18:12)
[2020-09-19] MEDS: ASPIRIN 81 MG TABLET, CHEWABLE NG SCH (09:11)
[2020-09-19] MEDS: TIMOLOL MALEATE 0.25% OPH SOLN 5 ML OU SCH ×2 (09:12→23:37)
[2020-09-19] MEDS: LINEZOLID 600 MG/300 ML RTUPB IV SCH ×2 (10:22→23:23)
[2020-09-19] MEDS: AMINO AC/PROTEIN HYDR/WHEY PRO 11 GM/45 ML PKT NG SCH ×4 (10:23→23:24)
[2020-09-19] MEDS: CARVEDILOL 12.5 MG TABLET NG SCH ×2 (10:30→23:23)
[2020-09-19] MEDS: SILDENAFIL CITRATE 20 MG TABLET NG SCH (10:30)
[2020-09-19] MEDS: RINGERS SOLUTION,LACTATED 1,000 ML IV PRN (12:25)
[2020-09-19 12:35] LABS: ARTERIAL BLOOD BASE EXCESS 2.9 mmol/L; ARTERIAL BLOOD H2CO3 1.21 mmol/L (1.05-1.35); ARTERIAL BLOOD HCO3 27.1 mmol/L (20-24); ARTERIAL BLOOD O2 SATURATION 94.3 % (94-98); ARTERIAL BLOOD PCO2 40.1 mmHg (35-45); ARTERIAL BLOOD PH 7.45 (7.35-7.45); ARTERIAL BLOOD PO2 67.8 mmHg (80-100); ARTERIAL BLOOD TOTAL CO2 28.4 mmol/L (23-27)
[2020-09-19 12:39] LABS: ARTERIAL BLOOD FIO2 100%
[2020-09-19 13:29] LABS: PATH REVIEW PATHOLOGIST REVIEWED
[2020-09-19] MEDS ORDERED: REMDESIVIR (EUA) 200 MG in NORMAL SALINE 250 ML IV ONE (14:00)
--- NOTE | 2020-09-19 18:39 | PDOC CRITICAL CARE PROG REPORT ---
General Date:: 09/19/20 ICU Day:: 7 Ventilator Day:: 7 Hospital Day:: 7 Resuscitation Status: Full Code Events in the past 12 to 24 Hours:: This 70-year-old -[place] male was found to be unresponsive at home by h is and was demonstrating shallow respiratory efforts. EMS was called and the patient was found to be hypoxic. He was intubated in the field. He was admitted to the ICU on 09/13/2020 with acute hypoxemic respiratory failure with clinical suspicion for COVID-19. Indeed. COVID-19 was confirmed through testing performed in the emergency department. The patient has not been treated with remdesivir. He is on dexamethasone. He did get 1 unit of convalescent plasma. 09/19: Patient in supine position. Nurse reports that the patient has had episodes of bradycardia, which appears to have improved with reduction in fentanyl infusion. He is on linezolid for MRSA in the sputum. On lactated Ringer's at 75 mL/h. On Glucerna + Prosource. ABG this a.m.: 7.46/40/94 on PRVC 35/450/100%/12. Review of systems relevant to events:: Pulmoary. Reason for ICU Addmission:: RESP FAILURE requiring intubation - Medications: Medications reviewed and adjusted accordingly: Yes Sedation:: Fentanyl/Versed Physical Exam Vital Signs: Temp Pulse Resp BP Pulse Ox 97.7 F 65 30 H 106/68 98 09/19/20 12:03 09/19/20 01:02 09/19/20 12:03 09/19/20 12:03 09/19/20 12:03 Intake & Output 09/18/20 09/19/20 09/20/20 06:59 06:59 06:59 Intake Total 3340 1922 1176 Output Total 1970 1180 540 Balance 1370 742 636 Weight 95.2 kg 96.5 kg Weight/Height Weight 96.5 kg Height 1.75 m General appearance: PRESENT: no acute distress, well-developed, well-nourished Head exam: PRESENT: atraumatic, normocephalic Eye exam: PRESENT: conjunctiva pink, EOMI, PERRLA. ABSENT: scleral icterus Mouth exam: PRESENT: moist, tongue midline Neck exam: ABSENT: carotid bruit, JVD, lymphadenopathy, thyromegaly Respiratory exam: PRESENT: rales, rhonchi. ABSENT: wheezes Cardiovascular exam: PRESENT: RRR. ABSENT: diastolic murmur, rubs, systolic murmur Pulses: PRESENT: normal dorsalis pedis pul GI/Abdominal exam: PRESENT: normal bowel sounds, soft. ABSENT: distended, guarding, mass, organolmegaly, rebound, tenderness Gentrourinary exam: PRESENT: indwelling catheter Extremities exam: PRESENT: full ROM. ABSENT: calf tenderness, clubbing, pedal edema Musculoskeletal exam: PRESENT: normal inspection. ABSENT: deformity Neurological exam: PRESENT: altered, CN II-XII grossly intact. ABSENT: motor sensory deficit Psychiatric exam: ABSENT: agitated, anxious, homicidal ideation, suicidal ideation Skin exam: PRESENT: dry, intact, warm. ABSENT: cyanosis, rash Tubes/Lines: PRESENT: Endotracheal Tube, Central Line - Right IJ, Other - Orogastric Laboratory/Radiographs Laboratory Results: 09/19/20 03:32 09/19/20 03:32 09/19/20 09/19/20 09/19/20 03:32 03:32 03:32 WBC 15.3 H RBC 4.63 Hgb 11.3 L Hct 34.7 L MCV 75 L MCH 24.4 L MCHC 32.5 RDW 16.4 H Plt Count 447 Seg Neutrophils % Not Reportable Carbonic Acid 1.19 HCO3/H2CO3 Ratio 22:1 ABG pH 7.46 H ABG pCO2 39.6 ABG pO2 93.6 ABG HCO3 27.3 H ABG O2 Saturation 97.5 ABG Base Excess 3.3 FiO2 100% Sodium 138.6 Potassium 4.5 Chloride 104 Carbon Dioxide 30 Anion Gap 5 BUN 47 H D Creatinine 0.92 Est GFR ( Amer) > 60 Glucose 179 H Calcium 7.8 L 09/19/20 12:15 WBC RBC Hgb Hct MCV MCH MCHC RDW Plt Count Seg Neutrophils % Carbonic Acid 1.21 HCO3/H2CO3 Ratio 22:1 ABG pH 7.45 ABG pCO2 40.1 ABG pO2 67.8 L ABG HCO3 27.1 H ABG O2 Saturation 94.3 ABG Base Excess 2.9 FiO2 100% Sodium Potassium Chloride Carbon Dioxide Anion Gap BUN Creatinine Est GFR ( Amer) Glucose Calcium 09/13/20 18:42 Blood Blood Culture (PCR) - Final Staphylococcus Species 09/13/20 09/13/20 09/14/20 18:42 18:42 01:40 Creatine Kinase 63 CK-MB (CK-2) 1.04 Troponin I 0.017 0.037 NT-Pro-B Natriuret Pep 110 09/14/20 09/14/20 09/14/20 07:45 07:45 13:19 Creatine Kinase CK-MB (CK-2) 1.12 0.96 Troponin I 0.015 < 0.012 NT-Pro-B Natriuret Pep 261 H 09/15/20 09/16/20 02:54 06:40 Creatine Kinase CK-MB (CK-2) Troponin I NT-Pro-B Natriuret Pep 103 106 Impressions: Chest X-Ray 09/17/20 09:30 IMPRESSION: No significant interval change. KUB X-Ray 09/17/20 09:30 IMPRESSION: Nasogastric tube tip and side port in the stomach All labs, radiographs, diagnostic studies and EKGs were personally reviewed: Yes In addition, reports of radiographic and diagnostic studies were read: Yes Assessment and Plan - Diagnosis (1) ARDS (adult respiratory distress syndrome) Is this a current diagnosis for this admission?: Yes Plan: Titrate vent settings based on ABG results. Was prone to x16 hours. Currently in supine position. (2) COVID-19 determined by clinical diagnostic criteria Is this a current diagnosis for this admission?: Yes Plan: Continue dexamethasone. Right remdesivir. (3) Diabetes mellitus Qualifiers: Diabetes mellitus type: type 2 Diabetes mellitus freight booker insulin use: without freight booker use Diabetes mellitus complication status: without complication Qualified Code(s): E11.9 - Type 2 diabetes mellitus without complications Is this a current diagnosis for this admission?: Yes Plan: Continue Lantus 25 units subcutaneous every 12 hours. Continue sliding scale insulin. (4) PNA (pneumonia) Qualifiers: Pneumonia type: due to methicillin-resistant Staphylococcus aureus (MRSA) Laterality: bilateral Lung location: unspecified part of lung Qualified Code(s): J15.212 - Pneumonia due to Methicillin resistant Staphylococcus aureus Is this a current diagnosis for this admission?: Yes Plan: Trach aspirate isolated MSSA. He is currently on linezolid. Critical Time Critical Time (minutes): 60 Level of Care: ICU -: 1. The care of a critical patient is a dynamic process. This note is a sales representative printing synopsis but static in nature. The timeframe for treatments given in order is not necessarily the actual time these treatments may have been done. 2. This patient requires critical care secondary to ongoing requirements for therapy not offered or safe outside the critical care environment. Transfer to a lower level of care will result in altered life or limb morbidity and mortality. 3. Multidisciplinary rounds completed. 4. ABCDE bundle addressed.
[2020-09-19] MEDS: LORAZEPAM INJ 2 MG/1 ML VIAL IV PRN (23:24)
[2020-09-19] MEDS: LATANOPROST 0.005% OPH SOLN 2.5 ML OU SCH (23:37)
[2020-09-19] MEDS ORDERED: HEPARIN SOD (PORCINE) 1,000 UNIT/ML 10 ML VIAL IV ONE (23:59)
[2020-09-20 00:01] LABS: APPEARANCE,URINE CLOUDY; BILIRUBIN,URINE NEGATIVE (NEGATIVE); COLOR,URINE YELLOW; GLUCOSE, URINE >=500 mg/dL (NEGATIVE); KETONES,URINE NEGATIVE (NEGATIVE); LEUKOCYTE ESTERASE,URINE NEGATIVE (NEGATIVE); NITRITE,URINE NEGATIVE (NEGATIVE); PROTEIN,URINE NEGATIVE (NEGATIVE); URIC ACID CRYSTALS,URINE MANY /HPF; URINE SPECIFIC GRAVITY 1.028; UROBILINOGEN,URINE NEGATIVE mg/dL (<2.0)
[2020-09-20 00:58] LABS: HEMATOCRIT 34.2 % (37.9-51.0); HEMOGLOBIN 11.2 g/dL (13.5-17.0); MEAN CORPUSCULAR HEMOGLOBIN 24.4 pg (27.0-33.4); MEAN CORPUSCULAR HGB CONC 32.7 g/dL (32.0-36.0); MEAN CORPUSCULAR VOLUME 75 fl (80-97); PLATELET COUNT 462 10^3/uL (150-450); RED BLOOD COUNT 4.58 10^6/uL (4.35-5.55); WHITE BLOOD COUNT 16.3 10^3/uL (4.0-10.5)
[2020-09-20] MEDS: HEPARIN SODIUM,PORCINE/D5W 25,000 UNIT/250 ML RTUINJ IV PRN (01:03)
[2020-09-20 01:04] LABS: PROTHROMBIN TIME 14.4 SEC (11.4-15.4)
[2020-09-20 01:05] LABS: PARTIAL THROMBOPLASTIN TIME 35.5 SEC (23.5-35.8)
[2020-09-20] MEDS: DEXAMETHASONE SOD PHOSPHATE INJ 4 MG/1 ML VIAL IV SCH ×3 (01:07→19:01)
[2020-09-20] MEDS ORDERED: HEPARIN SOD (PORCINE) 1,000 UNIT/ML 10 ML VIAL IV PRN (01:19)
[2020-09-20] MEDS: RINGERS SOLUTION,LACTATED 1,000 ML IV PRN ×2 (01:45→23:27)
[2020-09-20 02:16] LABS: ABSOLUTE LYMPHOCYTES# (MANUAL) 0.8 10^3/uL (0.5-4.7); ABSOLUTE MONOCYTES # (MANUAL) 1.8 10^3/uL (0.1-1.4); BAND NEUTROPHILS % (MANUAL) 9 % (3-5); BASOPHILS % (MANUAL) 0 % (0-2); EOSINOPHILS % (MANUAL) 0 % (0-6); LYMPHOCYTES % (MANUAL) 5 % (13-45); METAMYELOCYTES % (MANUAL) 1 % (0-1); MONOCYTES % (MANUAL) 11 % (3-13); SEGMENTED NEUTROPHILS % (MAN) 74 % (42-78); TOTAL CELLS COUNTED 100
[2020-09-20 02:17] LABS: HYPOCHROMASIA SLIGHT; POLYCHROMASIA SLIGHT; TOXIC GRANULATION SLIGHT; TOXIC VACUOLATION PRESENT
[2020-09-20 02:18] LABS: ANISOCYTOSIS 1+; BURR CELLS SLIGHT; OVALOCYTES SLIGHT; PLATELET COMMENT ADEQUATE; POIKILOCYTOSIS SLIGHT; SCHISTOCYTES SLIGHT; TEAR DROP CELLS SLIGHT
[2020-09-20 04:25] LABS: HEMATOCRIT 34.6 % (37.9-51.0); HEMOGLOBIN 11.2 g/dL (13.5-17.0); MEAN CORPUSCULAR HEMOGLOBIN 24.2 pg (27.0-33.4); MEAN CORPUSCULAR HGB CONC 32.3 g/dL (32.0-36.0); MEAN CORPUSCULAR VOLUME 75 fl (80-97); PLATELET COUNT 489 10^3/uL (150-450); RED BLOOD COUNT 4.62 10^6/uL (4.35-5.55); RED CELL DISTRIBUTION WIDTH 16.7 % (11.5-14.0); WHITE BLOOD COUNT 17.4 10^3/uL (4.0-10.5)
[2020-09-20 04:31] LABS: ARTERIAL BLOOD BASE EXCESS 1.1 mmol/L; ARTERIAL BLOOD H2CO3 1.21 mmol/L (1.05-1.35); ARTERIAL BLOOD HCO3 25.6 mmol/L (20-24); ARTERIAL BLOOD O2 SATURATION 92.9 % (94-98); ARTERIAL BLOOD PCO2 40.1 mmHg (35-45); ARTERIAL BLOOD PH 7.42 (7.35-7.45); ARTERIAL BLOOD PO2 64.1 mmHg (80-100); ARTERIAL BLOOD TOTAL CO2 26.8 mmol/L (23-27)
[2020-09-20 04:37] LABS: ARTERIAL BLOOD FIO2 100%
[2020-09-20] MEDS: MIDAZOLAM HCL 50 MG/100 ML RTUINJ IV PRN ×5 (05:03→23:31)
[2020-09-20] MEDS: FENTANYL CITRATE/PF 600 MCG/60 ML BAG IV PRN ×4 (05:03→21:59)
[2020-09-20 05:10] LABS: ALBUMIN 2.6 g/dL (3.5-5.0); ALKALINE PHOSPHATASE 123 U/L (38-126); ANION GAP 7 (5-19); ASPARTATE AMINO TRANSFERASE 66 U/L (17-59); BILIRUBIN,DIRECT 0.3 mg/dL (0.0-0.4); BILIRUBIN,TOTAL 0.5 mg/dL (0.2-1.3); BLOOD UREA NITROGEN 50 mg/dL (7-20); CARBON DIOXIDE 28 mmol/L (22-30); CHLORIDE 106 mmol/L (98-107); GLUCOSE 235 mg/dL (75-110); PHOSPHORUS 3.3 mg/dL (2.5-4.5); POTASSIUM 4.5 mmol/L (3.6-5.0); TOTAL PROTEIN 5.8 g/dL (6.3-8.2)
[2020-09-20 05:19] LABS: ABSOLUTE LYMPHOCYTES# (MANUAL) 0.9 10^3/uL (0.5-4.7); ABSOLUTE MONOCYTES # (MANUAL) 1.4 10^3/uL (0.1-1.4); BAND NEUTROPHILS % (MANUAL) 1 % (3-5); BASOPHILS % (MANUAL) 0 % (0-2); EOSINOPHILS % (MANUAL) 0 % (0-6); LYMPHOCYTES % (MANUAL) 5 % (13-45); METAMYELOCYTES % (MANUAL) 2 % (0-1); MONOCYTES % (MANUAL) 8 % (3-13); SEGMENTED NEUTROPHILS % (MAN) 84 % (42-78); TOTAL CELLS COUNTED 100
[2020-09-20 05:21] LABS: ANISOCYTOSIS 1+; BURR CELLS 1+; HYPOCHROMASIA SLIGHT; OVALOCYTES SLIGHT; PLATELET COMMENT ADEQUATE; POIKILOCYTOSIS SLIGHT; POLYCHROMASIA SLIGHT; SCHISTOCYTES SLIGHT; TOXIC GRANULATION SLIGHT; TOXIC VACUOLATION PRESENT
[2020-09-20] MEDS: INSULIN REG, HUMAN 100 UNIT/ML 3 ML VIAL (PYX) SUBCUT SCH ×3 (06:34→19:00)
[2020-09-20] MEDS: INSULIN GLARGINE,HUM.REC.ANLOG 1,000 UNIT/10 ML VIAL SUBCUT SCH ×2 (06:34→19:28)
--- NOTE | 2020-09-20 08:17 | RADIOLOGY REPORT (SQ) ---
EXAM DESCRIPTION: CHEST SINGLE VIEW IMAGES COMPLETED DATE/TIME: 09/20/2020 6:06 am REASON FOR STUDY: ETT tube COMPARISON: 09/17/2020. EXAM PARAMETERS: NUMBER OF VIEWS: One view. TECHNIQUE: Single frontal radiographic view of the chest acquired. RADIATION DOSE: NA LIMITATIONS: None. FINDINGS: LUNGS AND PLEURA: Diffuse airspace disease and right pleural effusion. MEDIASTINUM AND HILAR STRUCTURES: No masses. Contour normal. HEART AND VASCULAR STRUCTURES: Mild cardiomegaly. BONES: No acute findings. HARDWARE: Endotracheal tube, tip now located at the level of the clavicles. Approximately 9 cm from the [place]. Stable nasogastric tube and central line. OTHER: No other significant finding. IMPRESSION: ENDOTRACHEAL TUBE DESCRIBED. ADVANCEMENT MAY BE NECESSARY. DIFFUSE AIRSPACE DISEASE AND RIGHT PLEURAL EFFUSION. TECHNICAL DOCUMENTATION: JOB ID: [id number] 2010 [employer]- All Rights Reserved Reading location - IP/workstation name: [email or web address]
[2020-09-20] MEDS: CARVEDILOL 12.5 MG TABLET NG SCH ×2 (10:00→23:28)
[2020-09-20] MEDS: ASPIRIN 81 MG TABLET, CHEWABLE NG SCH (10:00)
[2020-09-20] MEDS: ASCORBIC ACID 500 MG TABLET NG SCH ×2 (10:00→19:02)
[2020-09-20] MEDS: PANTOPRAZOLE SODIUM 40 MG VIAL IV SCH ×2 (10:00→11:23)
[2020-09-20] MEDS: ATORVASTATIN CALCIUM 40 MG TABLET NG SCH (10:00)
[2020-09-20] MEDS: LINEZOLID 600 MG/300 ML RTUPB IV SCH ×2 (10:01→23:31)
[2020-09-20] MEDS: AMINO AC/PROTEIN HYDR/WHEY PRO 11 GM/45 ML PKT NG SCH ×3 (10:01→19:01)
[2020-09-20] MEDS: SILDENAFIL CITRATE 20 MG TABLET NG SCH (10:01)
[2020-09-20] MEDS: TIMOLOL MALEATE 0.25% OPH SOLN 5 ML OU SCH ×2 (10:05→23:24)
[2020-09-20] MEDS: REMDESIVIR (EUA) 100 MG in NORMAL SALINE 250 ML IV SCH (11:04)
[2020-09-20] MEDS: LORAZEPAM INJ 2 MG/1 ML VIAL IV PRN (14:07)
[2020-09-20] MEDS ORDERED: FUROSEMIDE INJ/PF 40 MG/4 ML SDV ONE (14:26)
--- NOTE | 2020-09-20 14:57 | RADIOLOGY REPORT (SQ) ---
EXAM DESCRIPTION: CHEST SINGLE VIEW IMAGES COMPLETED DATE/TIME: 09/20/2020 2:46 pm REASON FOR STUDY: desat COMPARISON: 09/20/2020 at 0548 hours. EXAM PARAMETERS: NUMBER OF VIEWS: One view. TECHNIQUE: Single frontal radiographic view of the chest acquired. RADIATION DOSE: NA LIMITATIONS: None. FINDINGS: LUNGS AND PLEURA: Diffuse bilateral airspace disease and pleural effusions. May be slight ly worse. MEDIASTINUM AND HILAR STRUCTURES: No masses. Contour normal. HEART AND VASCULAR STRUCTURES: Heart normal in size. Normal vasculature. BONES: No acute findings. HARDWARE: Stable endotracheal tube, nasogastric tube, and central line. OTHER: No other significant finding. IMPRESSION: DIFFUSE BILATERAL AIRSPACE DISEASE AND PLEURAL EFFUSIONS, MAY BE SLIGHTLY WORSE. TECHNICAL DOCUMENTATION: JOB ID: [id number] 2010 [employer]- All Rights Reserved Reading location - IP/workstation name: [email or web address]
--- NOTE | 2020-09-20 15:34 | RADIOLOGY REPORT (SQ) ---
EXAM DESCRIPTION: CHEST SINGLE VIEW IMAGES COMPLETED DATE/TIME: 09/20/2020 3:26 pm REASON FOR STUDY: ET Tube Placement COMPARISON: 09/20/2020. EXAM PARAMETERS: NUMBER OF VIEWS: One view. TECHNIQUE: Single frontal radiographic view of the chest acquired. RADIATION DOSE: NA LIMITATIONS: None. FINDINGS: LUNGS AND PLEURA: Diffuse airspace disease and bilateral pleural effusions unchanged. MEDIASTINUM AND HILAR STRUCTURES: No masses. Contour normal. HEART AND VASCULAR STRUCTURES: Heart normal in size. Normal vasculature. BONES: No acute findings. HARDWARE: Tip of the endotracheal tube is now located 3 cm proximal to the nam[place]. Stable nasogastri c tube and central line. OTHER: No other significant finding. IMPRESSION: SATISFACTORY POSITION OF THE ENDOTRACHEAL TUBE. NO SIGNIFICANT CHANGE IN APPEARANCE OF THE CHEST. TECHNICAL DOCUMENTATION: JOB ID: [id number] 2010 [employer]- All Rights Reserved Reading location - IP/workstation name: [email or web address]
[2020-09-20] MEDS ORDERED: ETOMIDATE INJ/PF 20 MG/10 ML SDV IV ONE (16:09)
[2020-09-20] MEDS ORDERED: FUROSEMIDE INJ/PF 40 MG/4 ML SDV IV ONE (17:45)
--- NOTE | 2020-09-20 19:22 | PDOC CRITICAL CARE PROG REPORT ---
General Date:: 09/20/20 ICU Day:: 8 Ventilator Day:: 8 Hospital Day:: 8 Resuscitation Status: Full Code Events in the past 12 to 24 Hours:: This 70-year-old -[place] male was found to be unresponsive at home by h is and was demonstrating shallow respiratory efforts. EMS was called and the patient was found to be hypoxic. He was intubated in the field. He was admitted to the ICU on 09/13/2020 with acute hypoxemic respiratory failure with clinical suspicion for COVID-19. Indeed. COVID-19 was confirmed through testing performed in the emergency department. The patient has not been treated with remdesivir. He is on dexamethasone. He did get 1 unit of convalescent plasma. 09/19: Patient in supine position. Nurse reports that the patient has had episodes of bradycardia, which appears to have improved with reduction in fentanyl infusion. He is on linezolid for MRSA in the sputum. On lactated Ringer's at 75 mL/h. On Glucerna + Prosource. ABG this a.m.: 7.46/40/94 on PRVC 35/450/100%/12. 09/20: Patient still in supine position. Started the morning with SPO2 100% on FiO2 100%, PEEP 10. FiO2 was reduced to 90%, but the patient has had progressively worsening hypoxemia throughout the day. Chest x-ray was obtained and demonstrates migration of the ET tube with the tip 9 cm cephalad to the namita. CVP 714. Review of systems relevant to events:: Pulmoary. Reason for ICU Addmission:: RESP FAILURE requiring intubation - Medications: Medications reviewed and adjusted accordingly: Yes Sedation:: Versed Physical Exam Vital Signs: Temp Pulse Resp BP Pulse Ox 98.6 F 91 36 H 117/62 74 L 09/20/20 14:05 09/20/20 14:21 09/20/20 14:21 09/20/20 14:05 09/20/20 14:21 Intake & Output 09/19/20 09/20/20 09/21/20 06:59 06:59 06:59 Intake Total 1922 3285 174 Output Total 1180 2230 840 Balance 742 1055 -666 Weight 96.5 kg 100 kg 100 kg Weight/Height Weight 100 kg Height 1.75 m General appearance: PRESENT: no acute distress, well-developed, well-nourished Head exam: PRESENT: atraumatic, normocephalic Eye exam: PRESENT: conjunctiva pink, EOMI, PERRLA. ABSENT: scleral icterus Mouth exam: PRESENT: moist, tongue midline Respiratory exam: PRESENT: decreased breath sounds, rales, rhonchi. ABSENT: wheezes Cardiovascular exam: PRESENT: bradycardia, RRR. ABSENT: diastolic murmur, rubs, systolic murmur Pulses: PRESENT: normal dorsalis pedis pul GI/Abdominal exam: PRESENT: normal bowel sounds, soft. ABSENT: distended, guarding, mass, organolmegaly, rebound, tenderness Rectal exam: PRESENT: deferred Gentrourinary exam: PRESENT: indwelling catheter Extremities exam: PRESENT: full ROM. ABSENT: calf tenderness, clubbing, pedal edema Musculoskeletal exam: PRESENT: normal inspection. ABSENT: deformity Neurological exam: PRESENT: CN II-XII grossly intact, motor sensory deficit Psychiatric exam: ABSENT: agitated, anxious Skin exam: PRESENT: dry, intact, warm. ABSENT: cyanosis, rash Tubes/Lines: PRESENT: Endotracheal Tube, Central Line Laboratory/Radiographs Laboratory Results: 09/20/20 04:10 09/20/20 04:10 09/19/20 09/20/20 09/20/20 23:45 00:50 04:10 WBC 16.3 H RBC 4.58 Hgb 11.2 L Hct 34.2 L MCV 75 L MCH 24.4 L MCHC 32.7 RDW 17.0 H Plt Count 462 H Seg Neutrophils % Not Reportable Carbonic Acid 1.21 HCO3/H2CO3 Ratio 21:1 ABG pH 7.42 ABG pCO2 40.1 ABG pO2 64.1 L ABG HCO3 25.6 H ABG O2 Saturation 92.9 L ABG Base Excess 1.1 FiO2 100% Sodium Potassium Chloride Carbon Dioxide Anion Gap BUN Creatinine Est GFR ( Amer) Glucose Calcium Phosphorus Magnesium Total Bilirubin AST Alkaline Phosphatase Total Protein Albumin Urine Color YELLOW Urine Appearance CLOUDY Urine pH 5.0 Ur Specific [place] 1.028 Urine Protein NEGATIVE Urine Glucose (UA) >=500 H Urine Ketones NEGATIVE Urine Blood NEGATIVE Urine Nitrite NEGATIVE Ur Leukocyte Esterase NEGATIVE Urine RBC (Auto) 1 09/20/20 09/20/20 04:10 04:10 WBC 17.4 H RBC 4.62 Hgb 11.2 L Hct 34.6 L MCV 75 L MCH 24.2 L MCHC 32.3 RDW 16.7 H Plt Count 489 H Seg Neutrophils % Not Reportable Carbonic Acid HCO3/H2CO3 Ratio ABG pH ABG pCO2 ABG pO2 ABG HCO3 ABG O2 Saturation ABG Base Excess FiO2 Sodium 140.8 Potassium 4.5 Chloride 106 Carbon Dioxide 28 Anion Gap 7 BUN 50 H Creatinine 0.97 Est GFR ( Amer) > 60 Glucose 235 H Calcium 8.0 L Phosphorus 3.3 Magnesium 2.6 H Total Bilirubin 0.5 AST 66 H Alkaline Phosphatase 123 Total Protein 5.8 L Albumin 2.6 L Urine Color Urine Appearance Urine pH Ur Specific [place] Urine Protein Urine Glucose (UA) Urine Ketones Urine Blood Urine Nitrite Ur Leukocyte Esterase Urine RBC (Auto) 09/13/20 18:42 Blood Blood Culture (PCR) - Final Staphylococcus Species 09/13/20 18:42 Blood Blood Culture - Final Staphylococcus Hominis Cutibacterium(Propion)Species 09/13/20 09/13/20 09/14/20 18:42 18:42 01:40 Creatine Kinase 63 CK-MB (CK-2) 1.04 Troponin I 0.017 0.037 NT-Pro-B Natriuret Pep 110 09/14/20 09/14/20 09/14/20 07:45 07:45 13:19 Creatine Kinase CK-MB (CK-2) 1.12 0.96 Troponin I 0.015 < 0.012 NT-Pro-B Natriuret Pep 261 H 09/15/20 09/16/20 09/20/20 02:54 06:40 04:10 Creatine Kinase CK-MB (CK-2) Troponin I NT-Pro-B Natriuret Pep 103 106 119 Impressions: KUB X-Ray 09/17/20 09:30 IMPRESSION: Nasogastric tube tip and side port in the stomach Chest X-Ray 09/20/20 05:00 IMPRESSION: ENDOTRACHEAL TUBE DESCRIBED. ADVANCEMENT MAY BE NECESSARY. DIFFUSE AIRSPACE DISEASE AND RIGHT PLEURAL EFFUSION. All labs, radiographs, diagnostic studies and EKGs were personally reviewed: Yes In addition, reports of radiographic and diagnostic studies were read: Yes Assessment and Plan - Diagnosis (1) ARDS (adult respiratory distress syndrome) Is this a current diagnosis for this admission?: Yes Plan: Titrate vent settings based on ABG results. Prone again today. (2) COVID-19 determined by clinical diagnostic criteria Is this a current diagnosis for this admission?: Yes Plan: Continue dexamethasone. (3) Diabetes mellitus Qualifiers: Diabetes mellitus type: type 2 Diabetes mellitus skilled nursing insulin use: without intermodal dispatcher use Diabetes mellitus complication status: without complication Qualified Code(s): E11.9 - Type 2 diabetes mellitus without complications Is this a current diagnosis for this admission?: Yes (4) PNA (pneumonia) Qualifiers: Pneumonia type: due to methicillin-resistant Staphylococcus aureus (MRSA) Laterality: bilateral Lung location: unspecified part of lung Qualified Code(s): J15.212 - Pneumonia due to Methicillin resistant Staphylococcus aureus Is this a current diagnosis for this admission?: Yes Plan: Trach aspirate isolated MSSA. He is currently on linezolid. Critical Time Critical Time (minutes): 90 Level of Care: ICU -: 1. The care of a critical patient is a dynamic process. This note is a career services representative synopsis but static in nature. The timeframe for treatments given in order is not necessarily the actual time these treatments may have been done. 2. This patient requires critical care secondary to ongoing requirements for therapy not offered or safe outside the critical care environment. Transfer to a lower level of care will result in altered life or limb morbidity and mortality. 3. Multidisciplinary rounds completed. 4. ABCDE bundle addressed.
[2020-09-20 19:33] LABS: ARTERIAL BLOOD BASE EXCESS 2.5 mmol/L; ARTERIAL BLOOD H2CO3 1.01 mmol/L (1.05-1.35); ARTERIAL BLOOD HCO3 25.3 mmol/L (20-24); ARTERIAL BLOOD O2 SATURATION 99.4 % (94-98); ARTERIAL BLOOD PCO2 33.4 mmHg (35-45); ARTERIAL BLOOD PO2 193.8 mmHg (80-100); ARTERIAL BLOOD TOTAL CO2 26.4 mmol/L (23-27)
[2020-09-20 19:34] LABS: ARTERIAL BLOOD FIO2 100%
[2020-09-20] MEDS ORDERED: SUCCINYLCHOLINE CHLORIDE INJ 200 MG/10 ML VIAL ONE (21:07)
[2020-09-20] MEDS: LATANOPROST 0.005% OPH SOLN 2.5 ML OU SCH (23:25)
[2020-09-21] MEDS: INSULIN REG, HUMAN 100 UNIT/ML 3 ML VIAL (PYX) SUBCUT SCH ×4 (02:39→20:14)
[2020-09-21] MEDS: AMINO AC/PROTEIN HYDR/WHEY PRO 11 GM/45 ML PKT NG SCH ×5 (03:28→22:03)
[2020-09-21] MEDS: DEXAMETHASONE SOD PHOSPHATE INJ 4 MG/1 ML VIAL IV SCH ×3 (03:28→20:13)
[2020-09-21] MEDS: FENTANYL CITRATE/PF 600 MCG/60 ML BAG IV PRN ×4 (03:28→20:29)
[2020-09-21] MEDS: MIDAZOLAM HCL 50 MG/100 ML RTUINJ IV PRN ×5 (03:53→22:14)
[2020-09-21] MEDS: HEPARIN SODIUM,PORCINE/D5W 25,000 UNIT/250 ML RTUINJ IV PRN (03:54)
[2020-09-21 03:56] LABS: HEMATOCRIT 32.4 % (37.9-51.0); HEMOGLOBIN 10.5 g/dL (13.5-17.0); MEAN CORPUSCULAR HEMOGLOBIN 24.1 pg (27.0-33.4); MEAN CORPUSCULAR HGB CONC 32.4 g/dL (32.0-36.0); MEAN CORPUSCULAR VOLUME 74 fl (80-97); PLATELET COUNT 542 10^3/uL (150-450); RED BLOOD COUNT 4.36 10^6/uL (4.35-5.55); RED CELL DISTRIBUTION WIDTH 16.6 % (11.5-14.0); WHITE BLOOD COUNT 16.1 10^3/uL (4.0-10.5)
[2020-09-21 03:58] LABS: APPEARANCE,URINE SLIGHTLY-CLOUDY; BILIRUBIN,URINE NEGATIVE (NEGATIVE); COLOR,URINE YELLOW; GLUCOSE, URINE >=500 mg/dL (NEGATIVE); KETONES,URINE NEGATIVE (NEGATIVE); LEUKOCYTE ESTERASE,URINE NEGATIVE (NEGATIVE); NITRITE,URINE NEGATIVE (NEGATIVE); PROTEIN,URINE NEGATIVE (NEGATIVE); URINE SPECIFIC GRAVITY 1.022
[2020-09-21 04:01] LABS: ARTERIAL BLOOD BASE EXCESS 1.3 mmol/L; ARTERIAL BLOOD FIO2 100%; ARTERIAL BLOOD H2CO3 1.07 mmol/L (1.05-1.35); ARTERIAL BLOOD HCO3 24.8 mmol/L (20-24); ARTERIAL BLOOD O2 SATURATION 99.4 % (94-98); ARTERIAL BLOOD PCO2 35.4 mmHg (35-45); ARTERIAL BLOOD PH 7.46 (7.35-7.45); ARTERIAL BLOOD PO2 186.5 mmHg (80-100); ARTERIAL BLOOD TOTAL CO2 25.9 mmol/L (23-27)
[2020-09-21 04:18] LABS: ANION GAP 6 (5-19); BLOOD UREA NITROGEN 48 mg/dL (7-20); CALCIUM 7.8 mg/dL (8.4-10.2); CARBON DIOXIDE 29 mmol/L (22-30); CHLORIDE 105 mmol/L (98-107); GLUCOSE 186 mg/dL (75-110); PHOSPHORUS 3.2 mg/dL (2.5-4.5); POTASSIUM 4.3 mmol/L (3.6-5.0)
[2020-09-21 04:43] LABS: ABSOLUTE LYMPHOCYTES# (MANUAL) 0.5 10^3/uL (0.5-4.7); ABSOLUTE MONOCYTES # (MANUAL) 0.6 10^3/uL (0.1-1.4); BASOPHILS % (MANUAL) 0 % (0-2); EOSINOPHILS % (MANUAL) 0 % (0-6); LYMPHOCYTES % (MANUAL) 3 % (13-45); MONOCYTES % (MANUAL) 4 % (3-13); SEGMENTED NEUTROPHILS % (MAN) 93 % (42-78); TOTAL CELLS COUNTED 100
[2020-09-21 04:48] LABS: ANISOCYTOSIS SLIGHT; BURR CELLS 1+; HYPOCHROMASIA SLIGHT; POIKILOCYTOSIS 1+; TARGET CELLS 1+
[2020-09-21 04:49] LABS: PLATELET COMMENT INCREASED
[2020-09-21] MEDS: INSULIN GLARGINE,HUM.REC.ANLOG 1,000 UNIT/10 ML VIAL SUBCUT SCH ×2 (06:17→20:13)
--- NOTE | 2020-09-21 08:44 | RADIOLOGY REPORT (SQ) ---
EXAM DESCRIPTION: CHEST SINGLE VIEW IMAGES COMPLETED DATE/TIME: 09/21/2020 6:22 am REASON FOR STUDY: ETT tube COMPARISON: AP view of the chest from 09/20/2020. EXAM PARAMETERS: NUMBER OF VIEWS: One view. TECHNIQUE: An AP view of the chest was obtained. RADIATION DOSE: NA LIMITATIONS: None. FINDINGS: LUNGS AND PLEURA: Decreased patchy bilateral parenchymal opacities. The costophrenic sul ci remain blunted. There is no pneumothorax. MEDIASTINUM AND HILAR STRUCTURES: Stable mediastinal and hilar contours. HEART AND VASCULAR STRUCTURES: Stable cardiac silhouette. BONES: No acute findings. HARDWARE: The tip of the endotracheal tube projects 5.5 cm above the namita. The tip of the right IJ central venous catheter projects at the level the cavoatrial junction. The tip of the enteric tube projects past the gastroesophageal junction and outside the field of view of the radiograph. OTHER: No other finding. IMPRESSION: Decreased patchy bilateral parenchymal opacities resulting in improved aeration of the l ungs. TECHNICAL DOCUMENTATION: JOB ID: [id number] [employer]- All Rights Reserved Reading location - IP/workstation name: [email or web address]
[2020-09-21] MEDS: PANTOPRAZOLE SODIUM 40 MG VIAL IV SCH (09:29)
[2020-09-21] MEDS: ASCORBIC ACID 500 MG TABLET NG SCH ×2 (09:29→20:13)
[2020-09-21] MEDS: ASPIRIN 81 MG TABLET, CHEWABLE NG SCH (09:30)
[2020-09-21] MEDS: ATORVASTATIN CALCIUM 40 MG TABLET NG SCH (09:30)
[2020-09-21] MEDS: TIMOLOL MALEATE 0.25% OPH SOLN 5 ML OU SCH ×2 (09:31→22:02)
[2020-09-21] MEDS: LINEZOLID 600 MG/300 ML RTUPB IV SCH ×2 (09:32→22:03)
[2020-09-21 10:09] LABS: ARTERIAL BLOOD BASE EXCESS 1.8 mmol/L; ARTERIAL BLOOD H2CO3 1.28 mmol/L (1.05-1.35); ARTERIAL BLOOD HCO3 26.6 mmol/L (20-24); ARTERIAL BLOOD O2 SATURATION 87.9 % (94-98); ARTERIAL BLOOD PCO2 42.4 mmHg (35-45); ARTERIAL BLOOD PH 7.42 (7.35-7.45); ARTERIAL BLOOD PO2 53.1 mmHg (80-100); ARTERIAL BLOOD TOTAL CO2 27.9 mmol/L (23-27)
[2020-09-21 10:11] LABS: ARTERIAL BLOOD FIO2 100%
[2020-09-21] MEDS: REMDESIVIR (EUA) 100 MG in NORMAL SALINE 250 ML IV SCH (11:15)
[2020-09-21] MEDS ORDERED: CARVEDILOL 12.5 MG TABLET NG SCH (12:00)
[2020-09-21] MEDS: SENNOSIDES/DOCUSATE 8.6-50 MG 1 EACH TABLET PO SCH ×2 (15:00→20:14)
[2020-09-21] MEDS: CARVEDILOL 12.5 MG TABLET NG SCH (20:13)
--- NOTE | 2020-09-21 20:34 | PDOC CRITICAL CARE PROG REPORT ---
General Date:: 09/21/20 ICU Day:: 9 Ventilator Day:: 9 Hospital Day:: 9 Resuscitation Status: Full Code Events in the past 12 to 24 Hours:: This 70-year-old -[place] male was found to be unresponsive at home by h is and was demonstrating shallow respiratory efforts. EMS was called and the patient was found to be hypoxic. He was intubated in the field. He was admitted to the ICU on 09/13/2020 with acute hypoxemic respiratory failure with clinical suspicion for COVID-19. Indeed. COVID-19 was confirmed through testing performed in the emergency department. The patient has not been treated with remdesivir. He is on dexamethasone. He did get 1 unit of convalescent plasma. 09/19: Patient in supine position. Nurse reports that the patient has had episodes of bradycardia, which appears to have improved with reduction in fentanyl infusion. He is on linezolid for MRSA in the sputum. On lactated Ringer's at 75 mL/h. On Glucerna + Prosource. ABG this a.m.: 7.46/40/94 on PRVC 35/450/100%/12. 09/20: Patient still in supine position. Started the morning with SPO2 100% on FiO2 100%, PEEP 10. FiO2 was reduced to 90%, but the patient has had progressively worsening hypoxemia throughout the day. Chest x-ray was obtained and demonstrates migration of the ET tube with the tip 9 cm cephalad to the namita. CVP 714. 09/21: Patient still in supine position. Improvement in ABG results were noted after adjusting ET tube position yesterday. Remains on FiO2 100%, PEEP 10. CVP 16. Patient appears to be diuresing well with a urine output approximately 150 mL/h. On remdesivir and linezolid. Previous blood cultures (09/13) were reported to be suspicious for contaminant; however, Cutibacterium species were isolated and 2 out of 2 bottles. The patient has noted to be bradycardic (sinus bradycardia, hemodynamically stable) over the past 3 days. Observation has been made that this correlates exquisitely with his sedation regimen. With tactile stimulus, the patient promptly demonstrates a normal sinus rhythm. Review of systems relevant to events:: Pulmoary. Reason for ICU Addmission:: RESP FAILURE requiring intubation - Medications: Medications reviewed and adjusted accordingly: Yes Sedation:: Versed/fentanyl Physical Exam Vital Signs: Temp Pulse Resp BP Pulse Ox 98.1 F 72 24 H 123/56 L 97 09/21/20 16:00 09/21/20 16:00 09/21/20 16:00 09/21/20 16:00 09/21/20 16:00 Intake & Output 09/20/20 09/21/20 09/22/20 06:59 06:59 06:59 Intake Total 3285 2481 502 Output Total 2230 3020 1275 Balance 1055 -539 -773 Weight 100 kg 102.8 kg Weight/Height Weight 102.8 kg Height 1.75 m General appearance: PRESENT: no acute distress, well-developed, well-nourished Head exam: PRESENT: atraumatic, normocephalic Eye exam: PRESENT: conjunctiva pink, EOMI, PERRLA. ABSENT: scleral icterus Mouth exam: PRESENT: moist, tongue midline Neck exam: ABSENT: carotid bruit, JVD, lymphadenopathy, thyromegaly Respiratory exam: PRESENT: decreased breath sounds, rales, rhonchi, tachypnea. ABSENT: wheezes Cardiovascular exam: PRESENT: bradycardia, RRR. ABSENT: diastolic murmur, rubs, systolic murmur Pulses: PRESENT: normal dorsalis pedis pul GI/Abdominal exam: PRESENT: normal bowel sounds, soft. ABSENT: distended, guarding, mass, organolmegaly, rebound, tenderness Extremities exam: PRESENT: full ROM, pedal edema. ABSENT: calf tenderness, clubbing Musculoskeletal exam: PRESENT: normal inspection. ABSENT: deformity Neurological exam: PRESENT: altered, reflexes normal, CN II-XII grossly intact. ABSENT: motor sensory deficit Psychiatric exam: ABSENT: agitated, anxious Skin exam: PRESENT: dry, intact, warm. ABSENT: cyanosis, rash Tubes/Lines: PRESENT: Endotracheal Tube, Central Line, Other - Orogastric Laboratory/Radiographs Laboratory Results: 09/21/20 03:10 09/21/20 03:10 09/20/20 09/21/20 09/21/20 19:23 03:10 03:10 WBC RBC Hgb Hct MCV MCH MCHC RDW Plt Count Seg Neutrophils % Carbonic Acid 1.01 L 1.07 HCO3/H2CO3 Ratio 25:1 23:1 ABG pH 7.50 H 7.46 H ABG pCO2 33.4 L 35.4 ABG pO2 193.8 H 186.5 H ABG HCO3 25.3 H 24.8 H ABG O2 Saturation 99.4 H 99.4 H ABG Base Excess 2.5 1.3 FiO2 100% 100% Sodium 139.8 Potassium 4.3 Chloride 105 Carbon Dioxide 29 Anion Gap 6 BUN 48 H Creatinine 0.75 Est GFR ( Amer) > 60 Glucose 186 H Calcium 7.8 L Phosphorus 3.2 Magnesium 2.6 H Urine Color Urine Appearance Urine pH Ur Specific [place] Urine Protein Urine Glucose (UA) Urine Ketones Urine Blood Urine Nitrite Ur Leukocyte Esterase Urine WBC (Auto) Urine RBC (Auto) 09/21/20 09/21/20 09/21/20 03:10 03:10 10:00 WBC 16.1 H RBC 4.36 Hgb 10.5 L Hct 32.4 L MCV 74 L MCH 24.1 L MCHC 32.4 RDW 16.6 H Plt Count 542 H Seg Neutrophils % Not Reportable Carbonic Acid 1.28 HCO3/H2CO3 Ratio 20:1 ABG pH 7.42 ABG pCO2 42.4 ABG pO2 53.1 L ABG HCO3 26.6 H ABG O2 Saturation 87.9 L ABG Base Excess 1.8 FiO2 100% Sodium Potassium Chloride Carbon Dioxide Anion Gap BUN Creatinine Est GFR ( Amer) Glucose Calcium Phosphorus Magnesium Urine Color YELLOW Urine Appearance SLIGHTLY-CLOUDY Urine pH 5.0 Ur Specific [place] 1.022 Urine Protein NEGATIVE Urine Glucose (UA) >=500 H Urine Ketones NEGATIVE Urine Blood NEGATIVE Urine Nitrite NEGATIVE Ur Leukocyte Esterase NEGATIVE Urine WBC (Auto) 3 Urine RBC (Auto) 6 09/13/20 18:42 Blood Blood Culture (PCR) - Final Staphylococcus Species 09/13/20 18:42 Blood Blood Culture - Final Staphylococcus Hominis Cutibacterium(Propion)Species 09/13/20 18:52 Blood Blood Culture - Final Cutibacterium(Propion)Species 09/13/20 09/13/20 09/14/20 18:42 18:42 01:40 Creatine Kinase 63 CK-MB (CK-2) 1.04 Troponin I 0.017 0.037 NT-Pro-B Natriuret Pep 110 09/14/20 09/14/20 09/14/20 07:45 07:45 13:19 Creatine Kinase CK-MB (CK-2) 1.12 0.96 Troponin I 0.015 < 0.012 NT-Pro-B Natriuret Pep 261 H 09/15/20 09/16/20 09/20/20 02:54 06:40 04:10 Creatine Kinase CK-MB (CK-2) Troponin I NT-Pro-B Natriuret Pep 103 106 119 Impressions: KUB X-Ray 09/17/20 09:30 IMPRESSION: Nasogastric tube tip and side port in the stomach Chest X-Ray 09/21/20 05:00 IMPRESSION: Decreased patchy bilateral parenchymal opacities resulting in improved aeration of the lungs. All labs, radiographs, diagnostic studies and EKGs were personally reviewed: Yes In addition, reports of radiographic and diagnostic studies were read: Yes Assessment and Plan - Diagnosis (1) ARDS (adult respiratory distress syndrome) Is this a current diagnosis for this admission?: Yes Plan: Titrate vent settings based on ABG results. We will keep supine today. Monitor urine output. Reduce fluid input. Stop sildenafil. (2) COVID-19 determined by clinical diagnostic criteria Is this a current diagnosis for this admission?: Yes Plan: Continue dexamethasone. Continue remdesivir. (3) Diabetes mellitus Qualifiers: Diabetes mellitus type: type 2 Diabetes mellitus termite exterminator helper insulin use: without fdc use Diabetes mellitus complication status: without com plication Qualified Code(s): E11.9 - Type 2 diabetes mellitus without com plications Is this a current diagnosis for this admission?: Yes Plan: Continue Lantus 25 units subcutaneous every 12 hours. Continue sliding scale insulin. (4) PNA (pneumonia) Qualifiers: Pneumonia type: due to methicillin-resistant Staphylococcus aureus (MRSA) Laterality: bilateral Lung location: unspecified part of lung Qualified Code(s): J15.212 - Pneumonia due to Methicillin resistant Staphylococcus aureus Is this a current diagnosis for this admission?: Yes Plan: Trach aspirate isolated MSSA. He is currently on linezolid, which provide coverage for both MSSA and blood cultures (presuming they are not contaminants). (5) Bradycardia Is this a current diagnosis for this admission?: Yes Plan: Reduce Coreg to 12.5 mg NG twice daily. Critical Time Critical Time (minutes): 90 Level of Care: ICU -: 1. The care of a critical patient is a dynamic process. This note is a promotional representative synopsis but static in nature. The timeframe for treatments given in order is not necessarily the actual time these treatments may have been done. 2. This patient requires critical care secondary to ongoing requirements for therapy not offered or safe outside the critical care environment. Transfer to a lower level of care will result in altered life or limb morbidity and mortality. 3. Multidisciplinary rounds completed. 4. ABCDE bundle addressed.
[2020-09-21] MEDS: ALBUTEROL SULFATE 0.083% NEB 2.5 MG/3 ML AMPUL NEB PRN (21:21)
[2020-09-21] MEDS: LATANOPROST 0.005% OPH SOLN 2.5 ML OU SCH (22:02)
--- NOTE | 2020-09-22 00:04 | RADIOLOGY REPORT (SQ) ---
CLINICAL INDICATION: ETT placement. TECHNIQUE: A single portable AP view was obtained of the chest at 2325 hours. COMPARISON: 1752. FINDINGS: The cardiomediastinal silhouette is prominent. The lungs demonstrate progressive interstitial and alveolar space disease bilaterally. Bilateral pleural effusions, progressive. No pneumothorax. Right IJ central venous catheter tip projects over SVC RA junction, satisfactory. The endotracheal tube is been advanced. The tip is now approximately 1 cm above the namita. This would benefit from being withdrawn 1 cm. Osteoarthritis. Nasogastric tube tip and sidehole project over the stomach IMPRESSION: Endotracheal tube would benefit from being withdrawn 1 cm. Progressive pleural and parenchymal disease, bilaterally.
[2020-09-22] MEDS ORDERED: VECURONIUM BROMIDE INJ 10 MG VIAL IV ONE ×2 (01:00→01:37)
[2020-09-22] MEDS: INSULIN REG, HUMAN 100 UNIT/ML 3 ML VIAL (PYX) SUBCUT SCH ×4 (01:34→17:46)
[2020-09-22] MEDS: DEXAMETHASONE SOD PHOSPHATE INJ 4 MG/1 ML VIAL IV SCH ×3 (01:36→17:46)
[2020-09-22] MEDS: FENTANYL CITRATE/PF 600 MCG/60 ML BAG IV PRN ×6 (01:49→20:26)
[2020-09-22] MEDS: MIDAZOLAM HCL 50 MG/100 ML RTUINJ IV PRN ×4 (03:11→18:15)
[2020-09-22 03:43] LABS: ARTERIAL BLOOD BASE EXCESS 0.3 mmol/L; ARTERIAL BLOOD H2CO3 1.32 mmol/L (1.05-1.35); ARTERIAL BLOOD HCO3 25.6 mmol/L (20-24); ARTERIAL BLOOD O2 SATURATION 91.4 % (94-98); ARTERIAL BLOOD PCO2 43.9 mmHg (35-45); ARTERIAL BLOOD PH 7.38 (7.35-7.45); ARTERIAL BLOOD PO2 62.2 mmHg (80-100); ARTERIAL BLOOD TOTAL CO2 26.9 mmol/L (23-27)
[2020-09-22 03:44] LABS: HEMATOCRIT 32.5 % (37.9-51.0); HEMOGLOBIN 10.6 g/dL (13.5-17.0); MEAN CORPUSCULAR HEMOGLOBIN 24.4 pg (27.0-33.4); MEAN CORPUSCULAR HGB CONC 32.6 g/dL (32.0-36.0); MEAN CORPUSCULAR VOLUME 75 fl (80-97); RED BLOOD COUNT 4.34 10^6/uL (4.35-5.55); RED CELL DISTRIBUTION WIDTH 16.9 % (11.5-14.0); WHITE BLOOD COUNT 17.2 10^3/uL (4.0-10.5)
[2020-09-22 03:45] LABS: ARTERIAL BLOOD FIO2 100%
[2020-09-22 03:53] LABS: BLOOD UREA NITROGEN 41 mg/dL (7-20); CALCIUM 7.7 mg/dL (8.4-10.2); CARBON DIOXIDE 29 mmol/L (22-30); CHLORIDE 106 mmol/L (98-107); GLUCOSE 143 mg/dL (75-110); POTASSIUM 4.4 mmol/L (3.6-5.0)
[2020-09-22 04:04] LABS: ANION GAP 4 (5-19)
[2020-09-22 04:05] LABS: ABSOLUTE LYMPHOCYTES# (MANUAL) 0.9 10^3/uL (0.5-4.7); ABSOLUTE MONOCYTES # (MANUAL) 1.4 10^3/uL (0.1-1.4); BASOPHILS % (MANUAL) 0 % (0-2); EOSINOPHILS % (MANUAL) 0 % (0-6); LYMPHOCYTES % (MANUAL) 5 % (13-45); MONOCYTES % (MANUAL) 8 % (3-13); SEGMENTED NEUTROPHILS % (MAN) 87 % (42-78); TOTAL CELLS COUNTED 100
[2020-09-22 04:09] LABS: ANISOCYTOSIS 1+; BURR CELLS 1+; HYPOCHROMASIA 1+; PLATELET CLUMPS PRESENT; PLATELET COMMENT INCREASED; POIKILOCYTOSIS 1+; POLYCHROMASIA SLIGHT; TARGET CELLS SLIGHT; TEAR DROP CELLS 1+
[2020-09-22 04:10] LABS: PLATELET COUNT 539 10^3/uL (150-450)
[2020-09-22] MEDS: INSULIN GLARGINE,HUM.REC.ANLOG 1,000 UNIT/10 ML VIAL SUBCUT SCH ×2 (05:12→18:09)
[2020-09-22] MEDS: ASPIRIN 81 MG TABLET, CHEWABLE NG SCH (09:21)
[2020-09-22] MEDS: ASCORBIC ACID 500 MG TABLET NG SCH ×2 (09:21→17:47)
[2020-09-22] MEDS: SENNOSIDES/DOCUSATE 8.6-50 MG 1 EACH TABLET PO SCH ×3 (09:21→17:47)
[2020-09-22] MEDS: PANTOPRAZOLE SODIUM 40 MG VIAL IV SCH (09:21)
[2020-09-22] MEDS: AMINO AC/PROTEIN HYDR/WHEY PRO 11 GM/45 ML PKT NG SCH ×4 (09:22→22:33)
[2020-09-22] MEDS: ATORVASTATIN CALCIUM 40 MG TABLET NG SCH (09:22)
[2020-09-22] MEDS: CARVEDILOL 12.5 MG TABLET NG SCH (09:22)
[2020-09-22] MEDS: TIMOLOL MALEATE 0.25% OPH SOLN 5 ML OU SCH ×2 (09:23→22:34)
[2020-09-22] MEDS: LINEZOLID 600 MG/300 ML RTUPB IV SCH (09:24)
[2020-09-22] MEDS: REMDESIVIR (EUA) 100 MG in NORMAL SALINE 250 ML IV SCH (11:55)
[2020-09-22] MEDS: HEPARIN SODIUM,PORCINE/D5W 25,000 UNIT/250 ML RTUINJ IV PRN (12:18)
[2020-09-22] MEDS ORDERED: ETOMIDATE INJ/PF 20 MG/10 ML SDV IV ONE ×2 (15:31→17:15)
[2020-09-22] MEDS ORDERED: LIDOCAINE 1% INJ-PF (10 MG/ML) 30 ML SDV ONE (15:33)
--- NOTE | 2020-09-22 16:05 | Operative Report ---
Bedside Procedure - History of Present Illness Indication for Procedure: acute hypoxemic respiratory failure, ruptured ET tube cuff Date: 09/17/20 Provider: RIN RAMIREZ - Intubation Orotracheal Time of Intubation: 16:00 Airway evaluation: Normal anatomy Medications: Lidocaine, Etomidate, Succinylcholine, Versed Intubation method: Orotracheal Equipment used: Bougie ETT size: 8.0 ETT secured at: Teeth ETT secured at (cm): 25 Post Intubation Xray: Yes Intubation Complications: No complications
[2020-09-22] MEDS: ARGATROBAN 250 MG/NS 250 ML (NON-ESRD) IV PRN ×2 (16:16)
--- NOTE | 2020-09-22 16:27 | RADIOLOGY REPORT (SQ) ---
EXAM DESCRIPTION: CHEST SINGLE VIEW IMAGES COMPLETED DATE/TIME: 09/22/2020 4:16 pm REASON FOR STUDY: ETT placement verification COMPARISON: 09/21/2020. EXAM PARAMETERS: NUMBER OF VIEWS: One view. TECHNIQUE: Single frontal radiographic view of the chest acquired. RADIATION DOSE: NA LIMITATIONS: None. FINDINGS: LUNGS AND PLEURA: Diffuse bilateral airspace disease and pleural effusions. MEDIASTINUM AND HILAR STRUCTURES: No masses. Contour normal. HEART AND VASCULAR STRUCTURES: Cardiomegaly. BONES: No acute findings. Degenerative changes in the spine. HARDWARE: Improved position of the endotracheal tube. Tip now located 3.5 cm proximal to the namita. Stable nasogastric tube and central line. OTHER: No other significant finding. IMPRESSION: ENDOTRACHEAL TUBE IN SATISFACTORY POSITION FOLLOWING REPOSITIONING. NO CHANGE IN APPEAR ANCE OF THE CHEST. TECHNICAL DOCUMENTATION: JOB ID: [id number] 2010 [employer]- All Rights Reserved Reading location - IP/workstation name: [email or web address]
[2020-09-22] MEDS ORDERED: SILDENAFIL CITRATE 20 MG TABLET NG ONE ×2 (16:30→17:15)
--- NOTE | 2020-09-22 16:53 | PDOC CRITICAL CARE PROG REPORT ---
General Date:: 09/22/20 ICU Day:: 10 Ventilator Day:: 10 Hospital Day:: 10 Resuscitation Status: Full Code Events in the past 12 to 24 Hours:: This 70-year-old -[place] male was found to be unresponsive at home by his and was demonstrating shallow respiratory efforts. EMS was called and the patient was found to be hypoxic. He was intubated in the field. He was admitted to the ICU on 09/13/2020 with acute hypoxemic respiratory failure with clinical suspicion for COVID-19. Indeed. COVID-19 was confirmed through testing performed in the emergency department. The patient has not been treated with remdesivir. He is on dexamethasone. He did get 1 unit of convalescent plasma. 09/19: Patient in supine position. Nurse reports that the patient has had episodes of bradycardia, which appears to have improved with reduction in fentanyl infusion. He is on linezolid for MRSA in the sputum. On lactated Ringer's at 75 mL/h. On Glucerna + Prosource. ABG this a.m.: 7.46/40/94 on PRVC 35/450/100%/12. 09/20: Patient still in supine position. Started the morning with SPO2 100% on FiO2 100%, PEEP 10. FiO2 was reduced to 90%, but the patient has had progressively worsening hypoxemia throughout the day. Chest x-ray was obtained and demonstrates migration of the ET tube with the tip 9 cm cephalad to the namita. CVP 714. 09/21: Patient still in supine position. Improvement in ABG results were noted after adjusting ET tube position yesterday. Remains on FiO2 100%, PEEP 10. CVP 16. Patient appears to be diuresing well with a urine output approximately 150 mL/h. On remdesivir and linezolid. Previous blood cultures (09/13) were reported to be suspicious for contaminant; however, Cutibacterium species were isolated and 2 out of 2 bottles. The patient has noted to be bradycardic (sinus bradycardia, hemodynamically stable) over the past 3 days. Observation has been made that this correlates exquisitely with his sedation regimen. With tactile stimulus, the patient promptly demonstrates a normal sinus rhythm. 09/22: Patient continues to tolerate supine position. Remains on FiO2 100%, PEEP 10. CVP still high. Continues to demonstrate decent diuresis, ~100 mL/h. On remdesivir and linezolid. Continues to have stable sinus bradycardia with sedation. He is notably slightly more easy to arouse today but still RASS -3. Review of systems relevant to events:: Pulmoary. Reason for ICU Addmission:: RESP FAILURE requiring intubation - Medications: Medications reviewed and adjusted accordingly: Yes Sedation:: Versed/fentanyl Physical Exam Vital Signs: Temp Pulse Resp BP Pulse Ox 97.9 F 53 L 0 L 129/69 H 97 09/22/20 10:00 09/22/20 10:00 09/22/20 10:00 09/22/20 10:00 09/22/20 10:00 Intake & Output 09/21/20 09/22/20 09/23/20 06:59 06:59 06:59 Intake Total 2481 1562 309 Output Total 3020 2375 325 Balance -539 -813 -16 Weight 102.8 kg 103.4 kg Weight/Height Weight 103.4 kg Height 1.75 m General appearance: PRESENT: no acute distress, well-developed, well-nourished Head exam: PRESENT: atraumatic, normocephalic Ear exam: PRESENT: normal external ear exam Mouth exam: PRESENT: moist, tongue midline Respiratory exam: PRESENT: decreased breath sounds, rales. ABSENT: rhonchi, wh eezes Cardiovascular exam: PRESENT: bradycardia, RRR. ABSENT: diastolic murmur, rubs, systolic murmur Pulses: PRESENT: normal dorsalis pedis pul Vascular exam: PRESENT: normal capillary refill GI/Abdominal exam: PRESENT: normal bowel sounds, soft. ABSENT: distended, guarding, mass, organolmegaly, rebound, tenderness Gentrourinary exam: PRESENT: indwelling catheter Extremities exam: PRESENT: full ROM. ABSENT: calf tenderness, clubbing, pedal edema Musculoskeletal exam: PRESENT: normal inspection. ABSENT: deformity Neurological exam: PRESENT: altered, CN II-XII grossly intact. ABSENT: reflexes normal Psychiatric exam: ABSENT: agitated, anxious Skin exam: PRESENT: dry, intact, warm. ABSENT: cyanosis, rash Tubes/Lines: PRESENT: Endotracheal Tube, Central Line - Right IJ, Other - Orogastric Laboratory/Radiographs Laboratory Results: 09/22/20 03:30 09/22/20 03:30 09/22/20 09/22/20 09/22/20 03:30 03:30 03:30 WBC 17.2 H RBC 4.34 L Hgb 10.6 L Hct 32.5 L MCV 75 L MCH 24.4 L MCHC 32.6 RDW 16.9 H Plt Count 539 H Seg Neutrophils % Not Reportable Carbonic Acid 1.32 HCO3/H2CO3 Ratio 19:1 ABG pH 7.38 ABG pCO2 43.9 ABG pO2 62.2 L ABG HCO3 25.6 H ABG O2 Saturation 91.4 L ABG Base Excess 0.3 FiO2 100% Sodium 139.3 Potassium 4.4 Chloride 106 Carbon Dioxide 29 Anion Gap 4 L BUN 41 H Creatinine 0.71 Est GFR ( Amer) > 60 Glucose 143 H Calcium 7.7 L 09/13/20 18:42 Blood Blood Culture (PCR) - Final Staphylococcus Species 09/13/20 18:42 Blood Blood Culture - Final Staphylococcus Hominis Cutibacterium(Propion)Species 09/13/20 18:52 Blood Blood Culture - Final Cutibacterium(Propion)Species 09/13/20 09/13/20 09/14/20 18:42 18:42 01:40 Creatine Kinase 63 CK-MB (CK-2) 1.04 Troponin I 0.017 0.037 NT-Pro-B Natriuret Pep 110 09/14/20 09/14/20 09/14/20 07:45 07:45 13:19 Creatine Kinase CK-MB (CK-2) 1.12 0.96 Troponin I 0.015 < 0.012 NT-Pro-B Natriuret Pep 261 H 09/15/20 09/16/20 09/20/20 02:54 06:40 04:10 Creatine Kinase CK-MB (CK-2) Troponin I NT-Pro-B Natriuret Pep 103 106 119 Impressions: KUB X-Ray 09/17/20 09:30 IMPRESSION: Nasogastric tube tip and side port in the stomach Chest X-Ray 09/21/20 05:00 IMPRESSION: Decreased patchy bilateral parenchymal opacities resulting in improved aeration of the lungs. All labs, radiographs, diagnostic studies and EKGs were personally reviewed: Yes In addition, reports of radiographic and diagnostic studies were read: Yes Assessment and Plan - Diagnosis (1) ARDS (adult respiratory distress syndrome) Is this a current diagnosis for this admission?: Yes Plan: Titrate vent settings based on ABG results. We will keep supine today. Monitor urine output. Reduce fluid input. Off sildenafil. (2) COVID-19 determined by clinical diagnostic criteria Is this a current diagnosis for this admission?: Yes Plan: Continue dexamethasone. Continue remdesivir. (3) Diabetes mellitus Qualifiers: Diabetes mellitus type: type 2 Diabetes mellitus long term care phlebotomist insulin use: without mcc use Diabetes mellitus complication status: without complication Qualified Code(s): E11.9 - Type 2 diabetes mellitus without complications Is this a current diagnosis for this admission?: Yes Plan: Continue Lantus 25 units subcutaneous every 12 hours. Continue sliding scale insulin. (4) PNA (pneumonia) Qualifiers: Pneumonia type: due to methicillin-sensitive Staphylococcus aureus (MSSA) Laterality: bilateral Lung location: unspecified part of lung Qualified Code(s): J15.211 - Pneumonia due to Methicillin susceptible Staphylococcus aureus Is this a current diagnosis for this admission?: Yes Plan: Trach aspirate isolated MSSA. He is currently on linezolid, which provide coverage for both MSSA and blood cultures (presuming they are not contaminants). (5) Bradycardia Is this a current diagnosis for this admission?: Yes Plan: * Reduce Coreg to 12.5 mg NG twice daily. * In light of his high FiO2 and PEEP requirements, we need to avoid an adequate sedation. However, trending toward RASS -2 may prove helpful for resolving hi s baseline sinus bradycardia. Critical Time Critical Time (minutes): 60 Level of Care: ICU -: 1. The care of a critical patient is a dynamic process. This note is a sales representative marine supplies synopsis but static in nature. The timeframe for treatments given in order is not necessarily the actual time these treatments may have been done. 2. This patient requires critical care secondary to ongoing requirements for therapy not offered or safe outside the critical care environment. Transfer to a lower level of care will result in altered life or limb morbidity and mortality. 3. Multidisciplinary rounds completed. 4. ABCDE bundle addressed.
[2020-09-22] MEDS ORDERED: SUCCINYLCHOLINE CHLORIDE INJ 200 MG/10 ML VIAL IV ONE (17:15)
[2020-09-22] MEDS ORDERED: LIDOCAINE 1% INJ-PF (10 MG/ML) 30 ML SDV ENDO ONE (17:15)
[2020-09-22 18:29] LABS: ARTERIAL BLOOD BASE EXCESS 1.6 mmol/L; ARTERIAL BLOOD H2CO3 1.28 mmol/L (1.05-1.35); ARTERIAL BLOOD HCO3 26.5 mmol/L (20-24); ARTERIAL BLOOD O2 SATURATION 89.4 % (94-98); ARTERIAL BLOOD PCO2 42.6 mmHg (35-45); ARTERIAL BLOOD PH 7.41 (7.35-7.45); ARTERIAL BLOOD TOTAL CO2 27.8 mmol/L (23-27)
[2020-09-22 18:30] LABS: ARTERIAL BLOOD FIO2 100%
[2020-09-22] MEDS: LATANOPROST 0.005% OPH SOLN 2.5 ML OU SCH (22:34)
[2020-09-23] MEDS: INSULIN REG, HUMAN 100 UNIT/ML 3 ML VIAL (PYX) SUBCUT SCH ×4 (00:11→17:26)
[2020-09-23] MEDS: FENTANYL CITRATE/PF 600 MCG/60 ML BAG IV PRN ×7 (00:25→23:15)
[2020-09-23] MEDS: MIDAZOLAM HCL 50 MG/100 ML RTUINJ IV PRN ×8 (00:26→22:20)
[2020-09-23] MEDS: DEXAMETHASONE SOD PHOSPHATE INJ 4 MG/1 ML VIAL IV SCH ×3 (02:55→18:51)
[2020-09-23] MEDS ORDERED: FUROSEMIDE INJ/PF 40 MG/4 ML SDV IV ONE (03:12)
[2020-09-23] MEDS: ARGATROBAN 250 MG/NS 250 ML (NON-ESRD) IV PRN ×4 (03:21→18:35)
[2020-09-23 04:58] LABS: ARTERIAL BLOOD BASE EXCESS 3.7 mmol/L; ARTERIAL BLOOD H2CO3 1.44 mmol/L (1.05-1.35); ARTERIAL BLOOD HCO3 29.2 mmol/L (20-24); ARTERIAL BLOOD O2 SATURATION 71.2 % (94-98); ARTERIAL BLOOD PCO2 47.9 mmHg (35-45); ARTERIAL BLOOD TOTAL CO2 30.7 mmol/L (23-27)
[2020-09-23 05:00] LABS: HEMATOCRIT 35.2 % (37.9-51.0); HEMOGLOBIN 11.4 g/dL (13.5-17.0); MEAN CORPUSCULAR HEMOGLOBIN 24.3 pg (27.0-33.4); MEAN CORPUSCULAR HGB CONC 32.4 g/dL (32.0-36.0); MEAN CORPUSCULAR VOLUME 75 fl (80-97); PLATELET COUNT 576 10^3/uL (150-450); RED BLOOD COUNT 4.69 10^6/uL (4.35-5.55); RED CELL DISTRIBUTION WIDTH 16.9 % (11.5-14.0); WHITE BLOOD COUNT 20.6 10^3/uL (4.0-10.5)
[2020-09-23 05:01] LABS: ARTERIAL BLOOD FIO2 100%; ARTERIAL BLOOD PO2 37.7 mmHg (80-100)
[2020-09-23 05:09] LABS: APPEARANCE,URINE CLOUDY; BILIRUBIN,URINE NEGATIVE (NEGATIVE); COLOR,URINE YELLOW; GLUCOSE, URINE 50 mg/dL (NEGATIVE); KETONES,URINE NEGATIVE (NEGATIVE); LEUKOCYTE ESTERASE,URINE NEGATIVE (NEGATIVE); NITRITE,URINE NEGATIVE (NEGATIVE); PROTEIN,URINE NEGATIVE (NEGATIVE); URINE SPECIFIC GRAVITY 1.026
[2020-09-23 05:16] LABS: BLOOD UREA NITROGEN 36 mg/dL (7-20); CARBON DIOXIDE 30 mmol/L (22-30); CHLORIDE 108 mmol/L (98-107); POTASSIUM 4.3 mmol/L (3.6-5.0)
[2020-09-23 05:24] LABS: ABSOLUTE LYMPHOCYTES# (MANUAL) 1.4 10^3/uL (0.5-4.7); ABSOLUTE MONOCYTES # (MANUAL) 1.2 10^3/uL (0.1-1.4); BAND NEUTROPHILS % (MANUAL) 1 % (3-5); BASOPHILS % (MANUAL) 0 % (0-2); EOSINOPHILS % (MANUAL) 0 % (0-6); LYMPHOCYTES % (MANUAL) 7 % (13-45); MONOCYTES % (MANUAL) 6 % (3-13); SEGMENTED NEUTROPHILS % (MAN) 86 % (42-78); TOTAL CELLS COUNTED 100
[2020-09-23 05:25] LABS: ANISOCYTOSIS 1+; PLATELET COMMENT INCREASED; POIKILOCYTOSIS SLIGHT; SCHISTOCYTES SLIGHT
[2020-09-23 05:29] LABS: ANION GAP 3 (5-19)
[2020-09-23 05:30] LABS: GLUCOSE 37 mg/dL (75-110)
[2020-09-23] MEDS: DEXTROSE 50%-WATER 25 GM/50 ML DISP.SYRIN IV PRN ×4 (05:43→06:45)
[2020-09-23] MEDS: INSULIN GLARGINE,HUM.REC.ANLOG 1,000 UNIT/10 ML VIAL SUBCUT SCH ×2 (05:45→10:41)
--- NOTE | 2020-09-23 08:05 | RADIOLOGY REPORT (SQ) ---
EXAM DESCRIPTION: CHEST SINGLE VIEW IMAGES COMPLETED DATE/TIME: 09/23/2020 7:21 am REASON FOR STUDY: hypoxia COMPARISON: Chest films 09/20/2020, 09/21/2020, 09/22/2020 EXAM PARAMETERS: NUMBER OF VIEWS: One view. TECHNIQUE: Single frontal radiographic view of the chest acquired. RADIATION DOSE: NA LIMITATIONS: None. FINDINGS: LUNGS AND PLEURA: No change in diffuse alveolar and interstitial infiltrates worrisome for ARDS. No gross pleural effusion or pneumothorax. MEDIASTINUM AND HILAR STRUCTURES: No masses. Contour normal. HEART AND VASCULAR STRUCTURES: Heart normal in size. Normal vasculature. BONES: No acute findings. HARDWARE: Endotracheal tube tip 4 cm above the namita. Nasogastric tube tip and side port in the sto mach. Right jugular central line tip superior vena cava OTHER: No other significant finding. IMPRESSION: No change from yesterday TECHNICAL DOCUMENTATION: JOB ID: [id number] 2010 [employer]- All Rights Reserved Reading location - IP/workstation name: [email or web address]
[2020-09-23] MEDS: ALBUTEROL SULFATE 0.083% NEB 2.5 MG/3 ML AMPUL NEB PRN (08:30)
[2020-09-23] MEDS ORDERED: SILDENAFIL CITRATE 20 MG TABLET NG SCH (10:00)
[2020-09-23] MEDS: NORMAL SALINE 500 ML with ROCURONIUM BROMIDE 500 MG IV PRN ×4 (10:13→23:45)
[2020-09-23] MEDS: REMDESIVIR (EUA) 100 MG in NORMAL SALINE 250 ML IV SCH (10:13)
[2020-09-23] MEDS: PANTOPRAZOLE SODIUM 40 MG VIAL IV SCH (10:22)
[2020-09-23] MEDS: FUROSEMIDE INJ/PF 40 MG/4 ML SDV IV SCH ×2 (10:26→18:55)
--- NOTE | 2020-09-23 10:27 | RADIOLOGY REPORT (SQ) ---
EXAM DESCRIPTION: CHEST SINGLE VIEW IMAGES COMPLETED DATE/TIME: 09/23/2020 10:16 am REASON FOR STUDY: respiratory decline COMPARISON: 09/23/2020 NUMBER OF VIEWS: One view. TECHNIQUE: Single frontal radiographic image of the chest acquired. LIMITATIONS: None. FINDINGS: LUNGS AND PLEURA: Stable appearance. MEDIASTINUM AND HILAR STRUCTURES: Stable heart size and mediastinal structures. HEART AND VASCULAR STRUCTURES: Stable appearance. SUPPORT DEVICES: Appropriate location without change. BONES: No acute findings. OTHER: No other significant finding. IMPRESSION: STABLE APPEARANCE OF THE CHEST. SUPPORT DEVICES UNCHANGED. TECHNICAL DOCUMENTATION: JOB ID: [id number] 2010 [employer]- All Rights Reserved Reading location - IP/workstation name: [email or web address]
[2020-09-23] MEDS: AMINO AC/PROTEIN HYDR/WHEY PRO 11 GM/45 ML PKT NG SCH ×3 (10:34→17:03)
[2020-09-23] MEDS: TIMOLOL MALEATE 0.25% OPH SOLN 5 ML OU SCH (10:34)
[2020-09-23] MEDS: ASPIRIN 81 MG TABLET, CHEWABLE NG SCH (10:39)
[2020-09-23] MEDS: ASCORBIC ACID 500 MG TABLET NG SCH ×2 (10:39→17:03)
[2020-09-23] MEDS: SENNOSIDES/DOCUSATE 8.6-50 MG 1 EACH TABLET PO SCH ×3 (10:40→17:03)
[2020-09-23] MEDS: CARVEDILOL 12.5 MG TABLET NG SCH (10:40)
[2020-09-23] MEDS: ATORVASTATIN CALCIUM 40 MG TABLET NG SCH (10:40)
--- NOTE | 2020-09-23 12:09 | RADIOLOGY REPORT (SQ) ---
EXAM DESCRIPTION: CHEST SINGLE VIEW IMAGES COMPLETED DATE/TIME: 09/23/2020 12:00 pm REASON FOR STUDY: ett placement COMPARISON: Earlier the same day. NUMBER OF VIEWS: One view. TECHNIQUE: Single frontal radiographic image of the chest acquired. LIMITATIONS: None. FINDINGS: LUNGS AND PLEURA: Stable appearance. MEDIASTINUM AND HILAR STRUCTURES: Stable heart size and mediastinal structures. HEART AND VASCULAR STRUCTURES: Stable appearance. SUPPORT DEVICES: Endotracheal tube, NG tube and central line remain in place. All are in satisfactor y position. BONES: No acute findings. OTHER: No other significant finding. IMPRESSION: STABLE APPEARANCE OF THE CHEST. SUPPORT DEVICES UNCHANGED. TECHNICAL DOCUMENTATION: JOB ID: [id number] 2010 [employer]- All Rights Reserved Reading location - IP/workstation name: [email or web address]
[2020-09-23] MEDS ORDERED: DOPAMINE HCL/DEXTROSE 5%-WATER 800 MG/250 ML RTUINJ IV ONE (13:47)
[2020-09-23 14:07] LABS: ARTERIAL BLOOD BASE EXCESS -6.9 mmol/L; ARTERIAL BLOOD H2CO3 2.22 mmol/L (1.05-1.35); ARTERIAL BLOOD HCO3 23.6 mmol/L (20-24); ARTERIAL BLOOD O2 SATURATION 39.5 % (94-98); ARTERIAL BLOOD TOTAL CO2 25.8 mmol/L (23-27)
[2020-09-23] MEDS ORDERED: SODIUM BICARBONATE 8.4% INJ 50 MEQ/50 ML DISP.SYRIN ONE (14:07)
[2020-09-23 14:09] LABS: ARTERIAL BLOOD FIO2 100; ARTERIAL BLOOD PCO2 73.8 mmHg (35-45); ARTERIAL BLOOD PH 7.12 (7.35-7.45)
[2020-09-23 14:10] LABS: ARTERIAL BLOOD PO2 30.3 mmHg (80-100)
[2020-09-23 14:45] LABS: ARTERIAL BLOOD BASE EXCESS -7.8 mmol/L; ARTERIAL BLOOD HCO3 20.1 mmol/L (20-24); ARTERIAL BLOOD O2 SATURATION 97.7 % (94-98); ARTERIAL BLOOD PCO2 49.8 mmHg (35-45); ARTERIAL BLOOD PH 7.22 (7.35-7.45); ARTERIAL BLOOD TOTAL CO2 21.6 mmol/L (23-27)
[2020-09-23 14:46] LABS: ARTERIAL BLOOD FIO2 100%
[2020-09-23] MEDS: DOPAMINE HCL 800 MG/D5W 250 ML IV PRN (15:55)
[2020-09-23] MEDS ORDERED: DEXTROSE 5%-WATER 1000 ML 1,000 ML with SODIUM BICARBONATE 150 MEQ IV PRN ×4 (16:55→19:22)
[2020-09-23 17:38] LABS: ARTERIAL BLOOD BASE EXCESS -2.4 mmol/L; ARTERIAL BLOOD FIO2 100%; ARTERIAL BLOOD H2CO3 1.43 mmol/L (1.05-1.35); ARTERIAL BLOOD HCO3 24.1 mmol/L (20-24); ARTERIAL BLOOD O2 SATURATION 90.1 % (94-98); ARTERIAL BLOOD PCO2 47.6 mmHg (35-45); ARTERIAL BLOOD PH 7.32 (7.35-7.45); ARTERIAL BLOOD PO2 62.6 mmHg (80-100); ARTERIAL BLOOD TOTAL CO2 25.5 mmol/L (23-27)
--- NOTE | 2020-09-23 19:25 | PDOC CRITICAL CARE PROG REPORT ---
General Date:: 09/23/20 ICU Day:: 11 Ventilator Day:: 11 Hospital Day:: 11 Resuscitation Status: Full Code Events in the past 12 to 24 Hours:: This 70-year-old -Chinese male was found to be unresponsive at home by his and was demonstrating shallow respiratory efforts. EMS was called and the patient was found to be hypoxic. He was intubated in the field. He was admitted to the ICU on 09/13/2020 with acute hypoxemic respiratory failure with clinical suspicion for COVID-19. Indeed. COVID-19 was confirmed through testing performed in the emergency department. The patient has not been treated with remdesivir. He is on dexamethasone. He did get 1 unit of convalescent plasma. 09/19: Patient in supine position. Nurse reports that the patient has had episodes of bradycardia, which appears to have improved with reduction in fentanyl infusion. He is on linezolid for MRSA in the sputum. On lactated Ringer's at 75 mL/h. On Glucerna + Prosource. ABG this a.m.: 7.46/40/94 on PRVC 35/450/100%/12. 09/20: Patient still in supine position. Started the morning with SPO2 100% on FiO2 100%, PEEP 10. FiO2 was reduced to 90%, but the patient has had progressively worsening hypoxemia throughout the day. Chest x-ray was obtained and demonstrates migration of the ET tube with the tip 9 cm cephalad to the namita. CVP 714. 09/21: Patient still in supine position. Improvement in ABG results were noted after adjusting ET tube position yesterday. Remains on FiO2 100%, PEEP 10. CVP 16. Patient appears to be diuresing well with a urine output approximately 150 mL/h. On remdesivir and linezolid. Previous blood cultures (09/13) were reported to be suspicious for contaminant; however, Cutibacterium species were isolated and 2 out of 2 bottles. The patient has noted to be bradycardic (sinus bradycardia, hemodynamically stable) over the past 3 days. Observation has been made that this correlates exquisitely with his sedation regimen. With tactile stimulus, the patient promptly demonstrates a normal sinus rhythm. 09/22: Patient continues to tolerate supine position. Remains on FiO2 100%, PEEP 10. CVP still high. Continues to demonstrate decent diuresis, ~100 mL/h. On remdesivir and linezolid. Continues to have stable sinus bradycardia with sedation. He is notably slightly more easy to arouse today but still RASS -3. 09/23: Patient's ET tube was changed out over a bougie yesterday afternoon. Now with an 8.0 ET tube. He has continued to have difficulty with progressively worsening hypoxemic respiratory failure he is on high PEEP (1420) with FiO2 100%. Neuromuscular blockade with rocuronium infusion was initiated today without significant benefit. Bedside care was provided for 3 hours today due to profound hypoxemia. Despite oxygen saturations going as low as 39%. The patient appeared to remain hemodynamically stable. On the other hand, no ventilator intervention (increasing PEEP, changing ventilator modes to by vent/APRV, adjustment of pressure control mode) appeared to provide any improvement. Central venous O2 sat was determined to be low, prompting initiation of dopamine infusion, given his relative hypotension and previous difficulties with bradycardia arrhythmia (although he was in a normal sinus rhythm and even mild sinus tachycardia at this morning). This resulted in prompt and dramatic improvement in both hemodynamics and oxygenation. Started on argatroban infusion yesterday with increasing heparin requirement. Heparin was discontinued. Review of systems relevant to events:: Pulmoary. Reason for ICU Addmission:: RESP FAILURE requiring intubation - Medications: Medications reviewed and adjusted accordingly: Yes Vasopressors:: Dopamine Sedation:: Versed/fentanyl Physical Exam Vital Signs: Temp Pulse Resp BP Pulse Ox 99.3 F 85 38 H 170/99 H 99 09/23/20 14:29 09/23/20 14:00 09/23/20 14:29 09/23/20 14:29 09/23/20 14:29 Intake & Output 09/22/20 09/23/20 09/24/20 06:59 06:59 06:59 Intake Total 1812 1452 116 Output Total 5835 7557 771 Balance -563 -823 -659 Weight 103.4 kg 104.5 kg Weight/Height Weight 104.5 kg Height 1.75 m General appearance: PRESENT: no acute distress, obese, well-developed, well-n ourished, other - Sedated and paralyzed Head exam: PRESENT: atraumatic, normocephalic Mouth exam: PRESENT: moist, tongue midline Neck exam: ABSENT: carotid bruit, JVD, lymphadenopathy, thyromegaly Respiratory exam: PRESENT: decreased breath sounds. ABSENT: rales, rhonchi, wheezes Cardiovascular exam: PRESENT: RRR, tachycardia. ABSENT: diastolic murmur, rubs, systolic murmur Pulses: PRESENT: normal dorsalis pedis pul GI/Abdominal exam: PRESENT: normal bowel sounds, soft. ABSENT: distended, guarding, mass, organolmegaly, rebound, tenderness Extremities exam: PRESENT: full ROM, pedal edema, +1 edema. ABSENT: calf tenderness, clubbing Musculoskeletal exam: PRESENT: normal inspection. ABSENT: deformity Neurological exam: PRESENT: altered, motor sensory deficit. ABSENT: reflexes normal Psychiatric exam: ABSENT: agitated, anxious Skin exam: PRESENT: dry, intact, warm. ABSENT: cyanosis, rash Tubes/Lines: PRESENT: Endotracheal Tube, Central Line - Right IJ, Other - Orogastric Laboratory/Radiographs Laboratory Results: 09/23/20 04:30 09/23/20 04:30 09/22/20 09/23/20 09/23/20 18:12 04:30 04:30 WBC RBC Hgb Hct MCV MCH MCHC RDW Plt Count Seg Neutrophils % Carbonic Acid 1.28 1.44 H HCO3/H2CO3 Ratio 20:1 20:1 ABG pH 7.41 7.40 ABG pCO2 42.6 47.9 H ABG pO2 56.0 L 37.7 L* ABG HCO3 26.5 H 29.2 H ABG O2 Saturation 89.4 L 71.2 L ABG Base Excess 1.6 3.7 FiO2 100% 100% Sodium 140.5 Potassium 4.3 Chloride 108 H Carbon Dioxide 30 Anion Gap 3 L BUN 36 H Creatinine 0.70 Est GFR ( Amer) > 60 Glucose 37 L* Calcium 8.0 L Urine Color Urine Appearance Urine pH Ur Specific [place] Urine Protein Urine Glucose (UA) Urine Ketones Urine Blood Urine Nitrite Ur Leukocyte Esterase Urine WBC (Auto) Urine RBC (Auto) 09/23/20 09/23/20 09/23/20 04:30 04:30 13:37 WBC 20.6 H RBC 4.69 Hgb 11.4 L Hct 35.2 L MCV 75 L MCH 24.3 L MCHC 32.4 RDW 16.9 H Plt Count 576 H Seg Neutrophils % Not Reportable Carbonic Acid 2.22 H HCO3/H2CO3 Ratio 10:1 ABG pH 7.12 L* ABG pCO2 73.8 H* ABG pO2 30.3 L* ABG HCO3 23.6 ABG O2 Saturation 39.5 L ABG Base Excess -6.9 FiO2 100 Sodium Potassium Chloride Carbon Dioxide Anion Gap BUN Creatinine Est GFR ( Amer) Glucose Calcium Urine Color YELLOW Urine Appearance CLOUDY Urine pH 5.0 Ur Specific [place] 1.026 Urine Protein NEGATIVE Urine Glucose (UA) 50 H Urine Ketones NEGATIVE Urine Blood NEGATIVE Urine Nitrite NEGATIVE Ur Leukocyte Esterase NEGATIVE Urine WBC (Auto) 2 Urine RBC (Auto) 10 09/23/20 14:30 WBC RBC Hgb Hct MCV MCH MCHC RDW Plt Count Seg Neutrophils % Carbonic Acid 1.50 H HCO3/H2CO3 Ratio 13:1 ABG pH 7.22 L ABG pCO2 49.8 H ABG pO2 123.0 H ABG HCO3 20.1 ABG O2 Saturation 97.7 ABG Base Excess -7.8 FiO2 100% Sodium Potassium Chloride Carbon Dioxide Anion Gap BUN Creatinine Est GFR ( Amer) Glucose Calcium Urine Color Urine Appearance Urine pH Ur Specific [place] Urine Protein Urine Glucose (UA) Urine Ketones Urine Blood Urine Nitrite Ur Leukocyte Esterase Urine WBC (Auto) Urine RBC (Auto) 09/13/20 09/13/20 09/14/20 18:42 18:42 01:40 Creatine Kinase 63 CK-MB (CK-2) 1.04 Troponin I 0.017 0.037 NT-Pro-B Natriuret Pep 110 09/14/20 09/14/20 09/14/20 07:45 07:45 13:19 Creatine Kinase CK-MB (CK-2) 1.12 0.96 Troponin I 0.015 < 0.012 NT-Pro-B Natriuret Pep 261 H 09/15/20 09/16/20 09/20/20 02:54 06:40 04:10 Creatine Kinase CK-MB (CK-2) Troponin I NT-Pro-B Natriuret Pep 103 106 119 Impressions: KUB X-Ray 09/17/20 09:30 IMPRESSION: Nasogastric tube tip and side port in the stomach Chest X-Ray 09/23/20 00:00 IMPRESSION: STABLE APPEARANCE OF THE CHEST. SUPPORT DEVICES UNCHANGED. All labs, radiographs, diagnostic studies and EKGs were personally reviewed: Yes In addition, reports of radiographic and diagnostic studies were read: Yes Assessment and Plan - Diagnosis (1) ARDS (adult respiratory distress syndrome) Is this a current diagnosis for this admission?: Yes Plan: Titrate vent settings based on ABG results. On position today. Furosemide 40 mg IV every 8 hours x3 doses. Monitor urine output. Reduce fluid input. Off sildenafil. (2) COVID-19 determined by clinical diagnostic criteria Is this a current diagnosis for this admission?: Yes Plan: Continue dexamethasone. Continue remdesivir. (3) Diabetes mellitus Qualifiers: Diabetes mellitus type: type 2 Diabetes mellitus long-term insulin use: without long-term use Diabetes mellitus complication status: without complication Qualified Code(s): E11.9 - Type 2 diabetes mellitus without complications Is this a current diagnosis for this admission?: Yes Plan: Continue Lantus 25 units subcutaneous every 12 hours. Continue sliding scale insulin. (4) PNA (pneumonia) Qualifiers: Pneumonia type: due to methicillin-sensitive Staphylococcus aureus (MSSA) Laterality: bilateral Lung location: unspecified part of lung Qualified Code(s): J15.211 - Pneumonia due to Methicillin susceptible Staphylococcus aureus Is this a current diagnosis for this admission?: Yes Plan: Trach aspirate isolated MSSA. He is currently on linezolid, which provide coverage for both MSSA and blood cultures (presuming they are not contaminants). Completed a treatment course of linezolid. (5) Bradycardia Is this a current diagnosis for this admission?: Yes Plan Summary: Patient's presented to the bedside with their solutions architect consultant. Updated. The patient's believes that we should continue with definitive management. Her hopes are that the patient will make a meaningful recovery. However, she does agree that in the event of cardiopulmonary arrest, CPR should not be performed. Consequently, she agrees that CODE STATUS should be changed to DO NOT RESUSCITATE. Critical Time Critical Time (minutes): 180 Level of Care: ICU -: 1. The care of a critical patient is a dynamic process. This note is a rental sales representative synopsis but static in nature. The timeframe for treatments given in order is not necessarily the actual time these treatments may have been done. 2. This patient requires critical care secondary to ongoing requirements for therapy not offered or safe outside the critical care environment. Transfer to a lower level of care will result in altered life or limb morbidity and mortality. 3. Multidisciplinary rounds completed. 4. ABCDE bundle addressed.
[2020-09-23] MEDS ORDERED: SODIUM BICARBONATE 8.4% INJ 50 MEQ/50 ML DISP.SYRIN IV ONE (19:45)
[2020-09-23 20:16] LABS: ARTERIAL BLOOD BASE EXCESS -0.8 mmol/L; ARTERIAL BLOOD H2CO3 1.16 mmol/L (1.05-1.35); ARTERIAL BLOOD HCO3 23.6 mmol/L (20-24); ARTERIAL BLOOD PCO2 38.6 mmHg (35-45); ARTERIAL BLOOD PH 7.41 (7.35-7.45); ARTERIAL BLOOD TOTAL CO2 24.8 mmol/L (23-27)
[2020-09-23 20:18] LABS: ARTERIAL BLOOD FIO2 100%
[2020-09-23] MEDS ORDERED: HYDRALAZINE HCL INJ/PF 20 MG/1 ML SDV IV ONE (23:43)
[2020-09-24] MEDS: AMINO AC/PROTEIN HYDR/WHEY PRO 11 GM/45 ML PKT NG SCH ×5 (00:01→22:21)
[2020-09-24] MEDS: TIMOLOL MALEATE 0.25% OPH SOLN 5 ML OU SCH ×3 (00:01→22:52)
[2020-09-24] MEDS: LATANOPROST 0.005% OPH SOLN 2.5 ML OU SCH ×2 (00:02→22:52)
[2020-09-24] MEDS: INSULIN REG, HUMAN 100 UNIT/ML 3 ML VIAL (PYX) SUBCUT SCH ×4 (00:02→17:49)
[2020-09-24 00:22] LABS: ARTERIAL BLOOD BASE EXCESS 2.3 mmol/L; ARTERIAL BLOOD H2CO3 1.15 mmol/L (1.05-1.35); ARTERIAL BLOOD HCO3 26.2 mmol/L (20-24); ARTERIAL BLOOD PCO2 38.3 mmHg (35-45); ARTERIAL BLOOD PH 7.45 (7.35-7.45); ARTERIAL BLOOD PO2 77.4 mmHg (80-100); ARTERIAL BLOOD TOTAL CO2 27.4 mmol/L (23-27)
[2020-09-24 00:24] LABS: ARTERIAL BLOOD FIO2 100%
[2020-09-24] MEDS: MIDAZOLAM HCL 50 MG/100 ML RTUINJ IV PRN ×5 (01:45→20:15)
[2020-09-24] MEDS: DEXAMETHASONE SOD PHOSPHATE INJ 4 MG/1 ML VIAL IV SCH ×3 (02:59→17:49)
[2020-09-24] MEDS: FENTANYL CITRATE/PF 600 MCG/60 ML BAG IV PRN ×4 (02:59→22:53)
[2020-09-24] MEDS: FUROSEMIDE INJ/PF 40 MG/4 ML SDV IV SCH (02:59)
[2020-09-24 03:57] LABS: ALBUMIN 2.2 g/dL (3.5-5.0); ALKALINE PHOSPHATASE 124 U/L (38-126); ANION GAP 6 (5-19); ASPARTATE AMINO TRANSFERASE 566 U/L (17-59); BILIRUBIN,DIRECT 0.3 mg/dL (0.0-0.4); BILIRUBIN,TOTAL 0.7 mg/dL (0.2-1.3); BLOOD UREA NITROGEN 48 mg/dL (7-20); CALCIUM 7.6 mg/dL (8.4-10.2); CARBON DIOXIDE 30 mmol/L (22-30); CHLORIDE 108 mmol/L (98-107); GLUCOSE 135 mg/dL (75-110); PHOSPHORUS 3.5 mg/dL (2.5-4.5); POTASSIUM 4.4 mmol/L (3.6-5.0); TOTAL PROTEIN 5.1 g/dL (6.3-8.2)
[2020-09-24 04:04] LABS: PREALBUMIN 13.2 mg/dL (17.6-36.0)
[2020-09-24 04:13] LABS: HEMATOCRIT 38.1 % (37.9-51.0); HEMOGLOBIN 12.3 g/dL (13.5-17.0); MEAN CORPUSCULAR HEMOGLOBIN 23.9 pg (27.0-33.4); MEAN CORPUSCULAR HGB CONC 32.3 g/dL (32.0-36.0); MEAN CORPUSCULAR VOLUME 74 fl (80-97); PLATELET COUNT 525 10^3/uL (150-450); RED BLOOD COUNT 5.14 10^6/uL (4.35-5.55); RED CELL DISTRIBUTION WIDTH 17.6 % (11.5-14.0); WHITE BLOOD COUNT 21.2 10^3/uL (4.0-10.5)
[2020-09-24 04:30] LABS: ABSOLUTE LYMPHOCYTES# (MANUAL) 0.2 10^3/uL (0.5-4.7); ABSOLUTE MONOCYTES # (MANUAL) 1.5 10^3/uL (0.1-1.4); BAND NEUTROPHILS % (MANUAL) 1 % (3-5); BASOPHILS % (MANUAL) 0 % (0-2); EOSINOPHILS % (MANUAL) 0 % (0-6); LYMPHOCYTES % (MANUAL) 1 % (13-45); MONOCYTES % (MANUAL) 7 % (3-13); SEGMENTED NEUTROPHILS % (MAN) 91 % (42-78); TOTAL CELLS COUNTED 100
[2020-09-24 04:33] LABS: ANISOCYTOSIS 1+; HYPOCHROMASIA SLIGHT
[2020-09-24 04:34] LABS: OVALOCYTES SLIGHT; PLATELET CLUMPS PRESENT; PLATELET COMMENT INCREASED
[2020-09-24 06:02] LABS: ARTERIAL BLOOD BASE EXCESS 2.5 mmol/L; ARTERIAL BLOOD FIO2 100%; ARTERIAL BLOOD H2CO3 1.03 mmol/L (1.05-1.35); ARTERIAL BLOOD HCO3 25.5 mmol/L (20-24); ARTERIAL BLOOD O2 SATURATION 96.4 % (94-98); ARTERIAL BLOOD PCO2 34.1 mmHg (35-45); ARTERIAL BLOOD PH 7.49 (7.35-7.45); ARTERIAL BLOOD PO2 77.3 mmHg (80-100); ARTERIAL BLOOD TOTAL CO2 26.5 mmol/L (23-27)
[2020-09-24] MEDS: NORMAL SALINE 500 ML with ROCURONIUM BROMIDE 500 MG IV PRN ×4 (06:47→17:51)
[2020-09-24] MEDS: DOPAMINE HCL 800 MG/D5W 250 ML IV PRN (10:16)
[2020-09-24] MEDS: ASCORBIC ACID 500 MG TABLET NG SCH ×2 (10:23→17:53)
[2020-09-24] MEDS: ASPIRIN 81 MG TABLET, CHEWABLE NG SCH (10:23)
[2020-09-24] MEDS: PANTOPRAZOLE SODIUM 40 MG VIAL IV SCH (10:23)
[2020-09-24] MEDS: ATORVASTATIN CALCIUM 40 MG TABLET NG SCH (10:24)
[2020-09-24] MEDS: INSULIN GLARGINE,HUM.REC.ANLOG 1,000 UNIT/10 ML VIAL SUBCUT SCH (10:24)
[2020-09-24] MEDS: CARVEDILOL 12.5 MG TABLET NG SCH ×2 (10:24→11:48)
[2020-09-24] MEDS: SENNOSIDES/DOCUSATE 8.6-50 MG 1 EACH TABLET PO SCH ×3 (10:24→17:53)
--- NOTE | 2020-09-24 11:19 | RADIOLOGY REPORT (SQ) ---
EXAM DESCRIPTION: CHEST SINGLE VIEW IMAGES COMPLETED DATE/TIME: 09/24/2020 11:02 am REASON FOR STUDY: ETT tube COMPARISON: 09/23/2020 EXAM PARAMETERS: NUMBER OF VIEWS: One view TECHNIQUE: Single frontal radiograph of the chest. RADIATION DOSE: N/A LIMITATIONS: None. FINDINGS: TEMPORARY SUPPORT DEVICES:ETT in expected location. NG tube courses below the malka-diaphr agm in to the stomach. Central venous access catheter tip is in expected location. LUNGS AND PLEURA: For patchy parenchymal opacities. Modest improvement over the previous study. No e ffusions. No masses. No pneumothorax. MEDIASTINUM AND HILAR STRUCTURES: No masses. Contour normal. HEART AND VASCULAR STRUCTURES: Heart normal in size. normal vascularity. Aorta normal for age. BONES: No acute findings. OTHER: No other significant finding. IMPRESSION: Parenchymal opacities with modest improvement. SUPPORT DEVICE(S) IN EXPECTED LOCATIONS. TECHNICAL DOCUMENTATION: JOB ID: [id number] 2010 [employer]- All Rights Reserved Reading location - IP/workstation name: [email or web address]
[2020-09-24] MEDS: HEPARIN SOD (PORCINE) 5,000 UNIT/ML 1 ML VIAL SUBCUT SCH (11:48)
[2020-09-24] MEDS: SILDENAFIL CITRATE 20 MG TABLET NG SCH (11:49)
[2020-09-24] MEDS: ALBUMIN HUMAN 12.5 GM/50 ML RTUINJ IV SCH ×4 (12:14→14:43)
[2020-09-24 12:46] LABS: ARTERIAL BLOOD BASE EXCESS 0.7 mmol/L; ARTERIAL BLOOD H2CO3 1.18 mmol/L (1.05-1.35); ARTERIAL BLOOD O2 SATURATION 85.7 % (94-98); ARTERIAL BLOOD PCO2 39.3 mmHg (35-45); ARTERIAL BLOOD PH 7.42 (7.35-7.45); ARTERIAL BLOOD PO2 49.2 mmHg (80-100); ARTERIAL BLOOD TOTAL CO2 26.2 mmol/L (23-27)
[2020-09-24 12:49] LABS: ARTERIAL BLOOD FIO2 100%
[2020-09-24] MEDS ORDERED: FUROSEMIDE INJ/PF 40 MG/4 ML SDV ONE (13:47)
[2020-09-24] MEDS: FUROSEMIDE INJ/PF 20 MG/2 ML SDV IV SCH ×2 (14:00→22:52)
[2020-09-24 17:09] LABS: ARTERIAL BLOOD FIO2 100%; ARTERIAL BLOOD H2CO3 1.27 mmol/L (1.05-1.35); ARTERIAL BLOOD HCO3 26.8 mmol/L (20-24); ARTERIAL BLOOD O2 SATURATION 90.1 % (94-98); ARTERIAL BLOOD PCO2 42.3 mmHg (35-45); ARTERIAL BLOOD PH 7.42 (7.35-7.45); ARTERIAL BLOOD PO2 56.9 mmHg (80-100); ARTERIAL BLOOD TOTAL CO2 28.1 mmol/L (23-27)
--- NOTE | 2020-09-24 17:55 | PDOC CRITICAL CARE PROG REPORT ---
General Date:: 09/24/20 ICU Day:: 12 Ventilator Day:: 12 Hospital Day:: 12 Resuscitation Status: Do Not Resuscitate Events in the past 12 to 24 Hours:: This 70-year-old -Russian male was found to be unresponsive at home by his and was demonstrating shallow respiratory efforts. EMS was called and the patient was found to be hypoxic. He was intubated in the field. He was admitted to the ICU on 09/13/2020 with acute hypoxemic respiratory failure with clinical suspicion for COVID-19. Indeed. COVID-19 was confirmed through testing performed in the emergency department. The patient has not been treated with remdesivir. He is on dexamethasone. He did get 1 unit of convalescent plasma. 09/19: Patient in supine position. Nurse reports that the patient has had episodes of bradycardia, which appears to have improved with reduction in fentanyl infusion. He is on linezolid for MRSA in the sputum. On lactated Ringer's at 75 mL/h. On Glucerna + Prosource. ABG this a.m.: 7.46/40/94 on PRVC 35/450/100%/12. 09/20: Patient still in supine position. Started the morning with SPO2 100% on FiO2 100%, PEEP 10. FiO2 was reduced to 90%, but the patient has had progressively worsening hypoxemia throughout the day. Chest x-ray was obtained and demonstrates migration of the ET tube with the tip 9 cm cephalad to the namita. CVP 714. 09/21: Patient still in supine position. Improvement in ABG results were noted after adjusting ET tube position yesterday. Remains on FiO2 100%, PEEP 10. CVP 16. Patient appears to be diuresing well with a urine output approximately 150 mL/h. On remdesivir and linezolid. Previous blood cultures (09/13) were reported to be suspicious for contaminant; however, Cutibacterium species were isolated and 2 out of 2 bottles. The patient has noted to be bradycardic (sinus bradycardia, hemodynamically stable) over the past 3 days. Observation has been made that this correlates exquisitely with his sedation regimen. With tactile s timulus, the patient promptly demonstrates a normal sinus rhythm. 09/22: Patient continues to tolerate supine position. Remains on FiO2 100%, PEEP 10. CVP still high. Continues to demonstrate decent diuresis, ~100 mL/h. On remdesivir and linezolid. Continues to have stable sinus bradycardia with sedation. He is notably slightly more easy to arouse today but still RASS -3. 09/23: Patient's ET tube was changed out over a bougie yesterday afternoon. Now with an 8.0 ET tube. He has continued to have difficulty with progressively worsening hypoxemic respiratory failure he is on high PEEP (1420) with FiO2 100%. Neuromuscular blockade with rocuronium infusion was initiated today without significant benefit. Bedside care was provided for 3 hours today due to profound hypoxemia. Despite oxygen saturations going as low as 39%. The patient appeared to remain hemodynamically stable. On the other hand, no ventilator intervention (increasing PEEP, changing ventilator modes to by vent /APRV, adjustment of pressure control mode) appeared to provide any improvement. Central venous O2 sat was determined to be low, prompting initiation of dopamine infusion, given his relative hypotension and previous difficulties with bradycardia arrhythmia (although he was in a normal sinus rhythm and even mild sinus tachycardia at this morning). This resulted in prompt and dramatic improvement in both hemodynamics and oxygenation. Started on argatroban infusion yesterday with increasing heparin requirement. Heparin was discontinued. 09/24: The patient is currently proned (almost 18 hours now). Remains on mechanical ventilatory support, sedated and paralyzed. Pressure control mode (f 30, Pi 20 + PEEP, FiO2 100%, PEEP 10). On dopamine at 3 mcg/kg/min. On bicarbonate infusion at 40 mL/h. SPO2 93-98%. Still on argatroban. Urine output approximately 60 mL/h, appears to be slowly improving. Despite his episode of hypoxemia yesterday, creatinine 1.0 this morning. Review of systems relevant to events:: Pulmoary. Reason for ICU Addmission:: RESP FAILURE requiring intubation - Medications: Vasopressors:: Dopamine Sedation:: Versed/fentanyl, rocuronium Physical Exam Vital Signs: Temp Pulse Resp BP Pulse Ox 98.2 F 96 28 H 160/104 H 94 09/24/20 08:00 09/24/20 08:16 09/24/20 08:16 09/24/20 08:00 09/24/20 08:16 Intake & Output 09/23/20 09/24/20 09/25/20 06:59 06:59 06:59 Intake Total 1452 1950 173 Output Total 3282 2905 150 Balance -823 -955 23 Weight 104.5 kg 110.1 kg Weight/Height Weight 110.1 kg Height 1.75 m General appearance: PRESENT: no acute distress, morbidly obese, well-developed, well-nourished Head exam: PRESENT: atraumatic, normocephalic Respiratory exam: PRESENT: decreased breath sounds, rales, symmetrical, unlabored. ABSENT: rhonchi, wheezes Cardiovascular exam: PRESENT: RRR. ABSENT: diastolic murmur, rubs, systolic murmur Pulses: PRESENT: normal dorsalis pedis pul Extremities exam: PRESENT: full ROM, pedal edema, +1 edema. ABSENT: calf tenderness, clubbing Neurological exam: PRESENT: altered, other - Sedated and paralyzed Tubes/Lines: PRESENT: Endotracheal Tube, Central Line, Other - Orogastric Laboratory/Radiographs Laboratory Results: 09/24/20 02:55 09/24/20 02:55 09/23/20 09/23/20 09/23/20 13:37 14:30 17:28 WBC RBC Hgb Hct MCV MCH MCHC RDW Plt Count Seg Neutrophils % Carbonic Acid 2.22 H 1.50 H 1.43 H HCO3/H2CO3 Ratio 10:1 13:1 16:1 ABG pH 7.12 L* 7.22 L 7.32 L ABG pCO2 73.8 H* 49.8 H 47.6 H ABG pO2 30.3 L* 123.0 H 62.6 L ABG HCO3 23.6 20.1 24.1 H ABG O2 Saturation 39.5 L 97.7 90.1 L ABG Base Excess -6.9 -7.8 -2.4 FiO2 100 100% 100% Sodium Potassium Chloride Carbon Dioxide Anion Gap BUN Creatinine Est GFR ( Amer) Glucose Calcium Phosphorus Magnesium Total Bilirubin AST Alkaline Phosphatase Total Protein Albumin Prealbumin 09/23/20 09/24/20 09/24/20 20:05 00:10 02:55 WBC 21.2 H RBC 5.14 Hgb 12.3 L Hct 38.1 MCV 74 L MCH 23.9 L MCHC 32.3 RDW 17.6 H Plt Count 525 H Seg Neutrophils % Not Reportable Carbonic Acid 1.16 1.15 HCO3/H2CO3 Ratio 20:1 22:1 ABG pH 7.41 7.45 ABG pCO2 38.6 38.3 ABG pO2 74.0 L 77.4 L ABG HCO3 23.6 26.2 H ABG O2 Saturation 95.0 96.0 ABG Base Excess -0.8 2.3 FiO2 100% 100% Sodium Potassium Chloride Carbon Dioxide Anion Gap BUN Creatinine Est GFR ( Amer) Glucose Calcium Phosphorus Magnesium Total Bilirubin AST Alkaline Phosphatase Total Protein Albumin Prealbumin 09/24/20 09/24/20 02:55 04:20 WBC RBC Hgb Hct MCV MCH MCHC RDW Plt Count Seg Neutrophils % Carbonic Acid 1.03 L HCO3/H2CO3 Ratio 24:1 ABG pH 7.49 H ABG pCO2 34.1 L ABG pO2 77.3 L ABG HCO3 25.5 H ABG O2 Saturation 96.4 ABG Base Excess 2.5 FiO2 100% Sodium 143.6 Potassium 4.4 Chloride 108 H Carbon Dioxide 30 Anion Gap 6 BUN 48 H Creatinine 1.00 Est GFR ( Amer) > 60 Glucose 135 H Calcium 7.6 L Phosphorus 3.5 Magnesium 2.5 H Total Bilirubin 0.7 AST 566 H Alkaline Phosphatase 124 Total Protein 5.1 L Albumin 2.2 L Prealbumin 13.2 L 09/13/20 09/13/20 09/14/20 18:42 18:42 01:40 Creatine Kinase 63 CK-MB (CK-2) 1.04 Troponin I 0.017 0.037 NT-Pro-B Natriuret Pep 110 09/14/20 09/14/20 09/14/20 07:45 07:45 13:19 Creatine Kinase CK-MB (CK-2) 1.12 0.96 Troponin I 0.015 < 0.012 NT-Pro-B Natriuret Pep 261 H 09/15/20 09/16/20 09/20/20 02:54 06:40 04:10 Creatine Kinase CK-MB (CK-2) Troponin I NT-Pro-B Natriuret Pep 103 106 119 09/24/20 02:55 Creatine Kinase CK-MB (CK-2) Troponin I NT-Pro-B Natriuret Pep 3730 H Impressions: KUB X-Ray 09/17/20 09:30 IMPRESSION: Nasogastric tube tip and side port in the stomach Chest X-Ray 09/23/20 00:00 IMPRESSION: STABLE APPEARANCE OF THE CHEST. SUPPORT DEVICES UNCHANGED. All labs, radiographs, diagnostic studies and EKGs were personally reviewed: Yes In addition, reports of radiographic and diagnostic studies were read: Yes Assessment and Plan - Diagnosis (1) ARDS (adult respiratory distress syndrome) Is this a current diagnosis for this admission?: Yes Plan: * Titrate vent settings based on ABG results. * Returned to supine position today. * Furosemide 40 mg IV every 8 hours x3 doses. * Monitor urine output. Reduce fluid input. * Off sildenafil. (2) COVID-19 determined by clinical diagnostic criteria Is this a current diagnosis for this admission?: Yes Plan: * Continue dexamethasone. * Completed remdesivir. (3) Elevated brain natriuretic peptide (BNP) level Is this a current diagnosis for this admission?: Yes Plan: * Albumin/Lasix today. * Check troponin. (4) Diabetes mellitus Qualifiers: Diabetes mellitus type: type 2 Diabetes mellitus shelter insulin use: without shelter use Diabetes mellitus complication status: without complication Qualified Code(s): E11.9 - Type 2 diabetes mellitus without complications Is this a current diagnosis for this admission?: Yes Plan: * Continue Lantus 25 units subcutaneous daily. * Continue sliding scale insulin. (5) Bradycardia Is this a current diagnosis for this admission?: Yes (6) PNA (pneumonia) Qualifiers: Pneumonia type: due to methicillin-sensitive Staphylococcus aureus (MSSA) Laterality: bilateral Lung location: unspecified part of lung Qualified Code(s): J15.211 - Pneumonia due to Methicillin susceptible Staphylococcus aureus Is this a current diagnosis for this admission?: Yes Plan: * Treated with linezolid. * Trach aspirate isolated MSSA. * Blood cultures (presuming they are not contaminants) isolated Cutibacterium spp. Critical Time Critical Time (minutes): 120 Level of Care: ICU -: 1. The care of a critical patient is a dynamic process. This note is a r epresentative synopsis but static in nature. The timeframe for treatments given in order is not necessarily the actual time these treatments may have been done. 2. This patient requires critical care secondary to ongoing requirements for therapy not offered or safe outside the critical care environment. Transfer to a lower level of care will result in altered life or limb morbidity and mortali ty. 3. Multidisciplinary rounds completed. 4. ABCDE bundle addressed.
[2020-09-25] MEDS: INSULIN REG, HUMAN 100 UNIT/ML 3 ML VIAL (PYX) SUBCUT SCH ×4 (00:48→19:06)
[2020-09-25] MEDS: DEXAMETHASONE SOD PHOSPHATE INJ 4 MG/1 ML VIAL IV SCH ×3 (02:43→19:08)
[2020-09-25] MEDS: NORMAL SALINE 500 ML with ROCURONIUM BROMIDE 500 MG IV PRN ×4 (02:43→14:00)
[2020-09-25] MEDS: MIDAZOLAM HCL 50 MG/100 ML RTUINJ IV PRN ×4 (02:44→22:00)
[2020-09-25] MEDS: FENTANYL CITRATE/PF 600 MCG/60 ML BAG IV PRN ×4 (05:00→22:25)
[2020-09-25] MEDS: FUROSEMIDE INJ/PF 20 MG/2 ML SDV IV SCH (05:48)
[2020-09-25 06:40] LABS: HEMATOCRIT 30.8 % (37.9-51.0); MEAN CORPUSCULAR HGB CONC 32.4 g/dL (32.0-36.0); MEAN CORPUSCULAR VOLUME 74 fl (80-97); PLATELET COUNT 381 10^3/uL (150-450); RED BLOOD COUNT 4.16 10^6/uL (4.35-5.55); RED CELL DISTRIBUTION WIDTH 17.3 % (11.5-14.0); WHITE BLOOD COUNT 17.1 10^3/uL (4.0-10.5)
[2020-09-25 06:56] LABS: ALBUMIN 2.3 g/dL (3.5-5.0); ALKALINE PHOSPHATASE 96 U/L (38-126); ANION GAP 6 (5-19); ASPARTATE AMINO TRANSFERASE 130 U/L (17-59); BILIRUBIN,DIRECT 0.8 mg/dL (0.0-0.4); BILIRUBIN,TOTAL 1.4 mg/dL (0.2-1.3); BLOOD UREA NITROGEN 47 mg/dL (7-20); CALCIUM 7.6 mg/dL (8.4-10.2); CARBON DIOXIDE 31 mmol/L (22-30); CHLORIDE 108 mmol/L (98-107); GLUCOSE 130 mg/dL (75-110); PHOSPHORUS 3.4 mg/dL (2.5-4.5); POTASSIUM 4.3 mmol/L (3.6-5.0); TOTAL PROTEIN 4.7 g/dL (6.3-8.2)
[2020-09-25 06:59] LABS: ARTERIAL BLOOD BASE EXCESS 1.9 mmol/L; ARTERIAL BLOOD FIO2 100%; ARTERIAL BLOOD HCO3 26.8 mmol/L (20-24); ARTERIAL BLOOD O2 SATURATION 89.4 % (94-98); ARTERIAL BLOOD PCO2 43.1 mmHg (35-45); ARTERIAL BLOOD PH 7.41 (7.35-7.45); ARTERIAL BLOOD PO2 55.9 mmHg (80-100); ARTERIAL BLOOD TOTAL CO2 28.2 mmol/L (23-27)
[2020-09-25 07:04] LABS: TROPONIN I 0.476 ng/mL
[2020-09-25] MEDS: ALBUTEROL SULFATE 0.083% NEB 2.5 MG/3 ML AMPUL NEB PRN (07:55)
[2020-09-25] MEDS: ASPIRIN 81 MG TABLET, CHEWABLE NG SCH (11:04)
[2020-09-25] MEDS: PANTOPRAZOLE SODIUM 40 MG VIAL IV SCH (11:05)
[2020-09-25] MEDS: ATORVASTATIN CALCIUM 40 MG TABLET NG SCH (11:05)
[2020-09-25] MEDS: ASCORBIC ACID 500 MG TABLET NG SCH ×2 (11:05→19:06)
[2020-09-25] MEDS: SENNOSIDES/DOCUSATE 8.6-50 MG 1 EACH TABLET PO SCH ×3 (11:05→19:06)
[2020-09-25] MEDS: TIMOLOL MALEATE 0.25% OPH SOLN 5 ML OU SCH ×2 (11:06→22:52)
[2020-09-25] MEDS: CARVEDILOL 12.5 MG TABLET NG SCH (11:10)
[2020-09-25] MEDS: INSULIN GLARGINE,HUM.REC.ANLOG 1,000 UNIT/10 ML VIAL SUBCUT SCH (11:31)
[2020-09-25] MEDS: AMINO AC/PROTEIN HYDR/WHEY PRO 11 GM/45 ML PKT NG SCH ×4 (11:31→22:52)
[2020-09-25] MEDS: ARGATROBAN 250 MG/NS 250 ML (NON-ESRD) IV PRN ×4 (11:34→20:05)
[2020-09-25 13:09] LABS: ARTERIAL BLOOD BASE EXCESS 1.2 mmol/L; ARTERIAL BLOOD FIO2 100%; ARTERIAL BLOOD H2CO3 1.23 mmol/L (1.05-1.35); ARTERIAL BLOOD HCO3 25.7 mmol/L (20-24); ARTERIAL BLOOD O2 SATURATION 87.6 % (94-98); ARTERIAL BLOOD PCO2 40.7 mmHg (35-45); ARTERIAL BLOOD PH 7.42 (7.35-7.45); ARTERIAL BLOOD PO2 52.2 mmHg (80-100)
--- NOTE | 2020-09-25 13:52 | RADIOLOGY REPORT (SQ) ---
EXAM DESCRIPTION: CHEST SINGLE VIEW IMAGES COMPLETED DATE/TIME: 09/25/2020 12:10 pm REASON FOR STUDY: ETT tube COMPARISON: 09/24/2020 1051 hours EXAM PARAMETERS: NUMBER OF VIEWS: One view TECHNIQUE: Single frontal radiograph of the chest. RADIATION DOSE: N/A LIMITATIONS: None. FINDINGS: TEMPORARY SUPPORT DEVICES:ETT in expected location. NG tube courses below the malka-diaphr agm in to the stomach. Central venous access catheter tip is in expected location. LUNGS AND PLEURA: Extensive bilateral opacities. No improvement. No pneumothorax. No effusions. No masses. No pneumothorax. MEDIASTINUM AND HILAR STRUCTURES: No masses. Contour normal. HEART AND VASCULAR STRUCTURES: Heart normal in size. normal vascularity. Aorta normal for age. BONES: No acute findings. OTHER: No other significant finding. IMPRESSION: Radiographic changes in the lungs compatible with covid 19. No improvement. SUPPORT DEVICE(S) IN EXPECTED LOCATIONS. TECHNICAL DOCUMENTATION: JOB ID: [id number] 2010 [employer]- All Rights Reserved Reading location - IP/workstation name: [email or web address]
[2020-09-25] MEDS ORDERED: FUROSEMIDE INJ/PF 40 MG/4 ML SDV ONE (17:21)
[2020-09-25] MEDS: FUROSEMIDE INJ/PF 40 MG/4 ML SDV IV SCH (17:26)
[2020-09-25] MEDS ORDERED: NORMAL SALINE 500 ML IV PRN (17:37)
--- NOTE | 2020-09-25 18:10 | PDOC CRITICAL CARE PROG REPORT ---
General Date:: 09/25/20 ICU Day:: 13 Ventilator Day:: 1 Hospital Day:: 3 Resuscitation Status: Do Not Resuscitate Events in the past 12 to 24 Hours:: This 70-year-old -[place] male was found to be unresponsive at home by his and was demonstrating shallow respiratory efforts. EMS was called and the patient was found to be hypoxic. He was intubated in the field. He was admitted to the ICU on 09/13/2020 with acute hypoxemic respiratory failure with clinical suspicion for COVID-19. Indeed. COVID-19 was confirmed through testing performed in the emergency department. The patient has not been treated with remdesivir. He is on dexamethasone. He did get 1 unit of convalescent plasma. 09/19: Patient in supine position. Nurse reports that the patient has had episodes of bradycardia, which appears to have improved with reduction in fentanyl infusion. He is on linezolid for MRSA in the sputum. On lactated Ringer's at 75 mL/h. On Glucerna + Prosource. ABG this a.m.: 7.46/40/94 on PRVC 35/450/100%/12. 09/20: Patient still in supine position. Started the morning with SPO2 100% on FiO2 100%, PEEP 10. FiO2 was reduced to 90%, but the patient has had progressively worsening hypoxemia throughout the day. Chest x-ray was obtained and demonstrates migration of the ET tube with the tip 9 cm cephalad to the namita. CVP 714. 09/21: Patient still in supine position. Improvement in ABG results were noted after adjusting ET tube position yesterday. Remains on FiO2 100%, PEEP 10. CVP 16. Patient appears to be diuresing well with a urine output approximately 150 mL/h. On remdesivir and linezolid. Previous blood cultures (09/13) were reported to be suspicious for contaminant; however, Cutibacterium species were isolated and 2 out of 2 bottles. The patient has noted to be bradycardic (sinus bradycardia, hemodynamically stable) over the past 3 days. Observation has been made that this correlates exquisitely with his sedation regimen. With tactile stimulus, the patient promptly demonstrates a normal sinus rhythm. 09/22: Patient continues to tolerate supine position. Remains on FiO2 100%, PEEP 10. CVP still high. Continues to demonstrate decent diuresis, ~100 mL/h. On remdesivir and linezolid. Continues to have stable sinus bradycardia with sedation. He is notably slightly more easy to arouse today but still RASS -3. 09/23: Patient's ET tube was changed out over a bougie yesterday afternoon. Now with an 8.0 ET tube. He has continued to have difficulty with progressively worsening hypoxemic respiratory failure he is on high PEEP (1420) with FiO2 100%. Neuromuscular blockade with rocuronium infusion was initiated today without significant benefit. Bedside care was provided for 3 hours today due to profound hypoxemia. Despite oxygen saturations going as low as 39%. The patient appeared to remain hemodynamically stable. On the other hand, no ventilator intervention (increasing PEEP, changing ventilator modes to by vent/A PRV, adjustment of pressure control mode) appeared to provide any improvement. Central venous O2 sat was determined to be low, prompting initiation of dopamine infusion, given his relative hypotension and previous difficulties with bradycardia arrhythmia (although he was in a normal sinus rhythm and even mild sinus tachycardia at this morning). This resulted in prompt and dramatic improvement in both hemodynamics and oxygenation. Started on argatroban infusion yesterday with increasing heparin requirement. Heparin was discontinued. 09/24: The patient is currently proned (almost 18 hours now). Remains on mechanical ventilatory support, sedated and paralyzed. Pressure control mode (f 30, Pi 20 + PEEP, FiO2 100%, PEEP 10). On dopamine at 3 mcg/kg/min. On bicarbonate infusion at 40 mL/h. SPO2 93-98%. Still on argatroban. Urine output approximately 60 mL/h, appears to be slowly improving. Despite his episode of hypoxemia yesterday, creatinine 1.0 this morning. 09/25: Had an uneventful night. Currently proned, approaching 18 hours. Remains on mechanical ventilatory support, sedated and paralyzed. Off dopamine. CVP was found to be 24 yesterday. Patient was initiated on diuretic therapy. CVP now down to 19. Good urine output. Pressure control mode (f 28, Pi 20 + PEEP, FiO2 100%, PEEP 10). Bicarbonate infusion has been stopped. SPO2 95-98%. Still on argatroban. Review of systems relevant to events:: Pulmoary. Reason for ICU Addmission:: RESP FAILURE requiring intubation - Medications: Medications reviewed and adjusted accordingly: Yes Vasopressors:: Off dopamine Sedation:: Versed/fentanyl, rocuronium Physical Exam Vital Signs: Temp Pulse Resp BP Pulse Ox 99.1 F 87 28 H 105/70 97 09/25/20 08:00 09/25/20 08:00 09/25/20 08:00 09/25/20 08:00 09/25/20 08:00 Intake & Output 09/24/20 09/25/20 09/26/20 06:59 06:59 06:59 Intake Total 1950 2530 Output Total 2905 3580 450 Balance -955 -1050 -450 Weight 110.1 kg 107.9 kg Weight/Height Weight 107.9 kg Height 1.75 m General appearance: PRESENT: no acute distress, obese, well-developed, well- nourished, other - Prone position Head exam: PRESENT: atraumatic, normocephalic Eye exam: PRESENT: conjunctiva pink, periorbital swelling. ABSENT: scleral icterus Respiratory exam: PRESENT: rales, rhonchi, other - Increased aeration bilaterally. ABSENT: wheezes Cardiovascular exam: PRESENT: RRR. ABSENT: diastolic murmur, rubs, systolic murmur Pulses: PRESENT: normal dorsalis pedis pul GI/Abdominal exam: PRESENT: normal bowel sounds, soft Gentrourinary exam: PRESENT: indwelling catheter Extremities exam: PRESENT: full ROM, pedal edema, +2 edema. ABSENT: calf tenderness, clubbing Musculoskeletal exam: PRESENT: normal inspection. ABSENT: deformity Neurological exam: PRESENT: altered, other - Sedated and paralyzed. Skin exam: PRESENT: dry, intact, warm, other - Skin tear at gluteal fold. Lower extremity pressure injury. ABSENT: cyanosis, rash Tubes/Lines: PRESENT: Endotracheal Tube, Central Line - Right IJ, Other - Orogastric Laboratory/Radiographs Laboratory Results: 09/25/20 05:45 09/25/20 05:45 09/24/20 09/24/20 09/25/20 12:30 16:50 04:17 WBC RBC Hgb Hct MCV MCH MCHC RDW Plt Count Carbonic Acid 1.18 1.27 1.30 HCO3/H2CO3 Ratio 21:1 21:1 20:1 ABG pH 7.42 7.42 7.41 ABG pCO2 39.3 42.3 43.1 ABG pO2 49.2 L 56.9 L 55.9 L ABG HCO3 25.0 H 26.8 H 26.8 H ABG O2 Saturation 85.7 L 90.1 L 89.4 L ABG Base Excess 0.7 2.0 1.9 FiO2 100% 100% 100% Sodium Potassium Chloride Carbon Dioxide Anion Gap BUN Creatinine Est GFR ( Amer) Glucose Calcium Phosphorus Magnesium Total Bilirubin AST Alkaline Phosphatase Total Protein Albumin 09/25/20 09/25/20 05:45 05:45 WBC 17.1 H RBC 4.16 L Hgb 10.0 L D Hct 30.8 L MCV 74 L MCH 24.0 L MCHC 32.4 RDW 17.3 H Plt Count 381 Carbonic Acid HCO3/H2CO3 Ratio ABG pH ABG pCO2 ABG pO2 ABG HCO3 ABG O2 Saturation ABG Base Excess FiO2 Sodium 145.1 H Potassium 4.3 Chloride 108 H Carbon Dioxide 31 H Anion Gap 6 BUN 47 H Creatinine 0.99 Est GFR ( Amer) > 60 Glucose 130 H Calcium 7.6 L Phosphorus 3.4 Magnesium 2.3 Total Bilirubin 1.4 H AST 130 H Alkaline Phosphatase 96 Total Protein 4.7 L Albumin 2.3 L 09/13/20 09/13/20 09/14/20 18:42 18:42 01:40 Creatine Kinase 63 CK-MB (CK-2) 1.04 Troponin I 0.017 0.037 NT-Pro-B Natriuret Pep 110 09/14/20 09/14/20 09/14/20 07:45 07:45 13:19 Creatine Kinase CK-MB (CK-2) 1.12 0.96 Troponin I 0.015 < 0.012 NT-Pro-B Natriuret Pep 261 H 09/15/20 09/16/20 09/20/20 02:54 06:40 04:10 Creatine Kinase CK-MB (CK-2) Troponin I NT-Pro-B Natriuret Pep 103 106 119 09/24/20 09/24/20 09/24/20 02:55 10:25 16:30 Creatine Kinase CK-MB (CK-2) Troponin I 0.933 0.548 NT-Pro-B Natriuret Pep 3730 H 09/24/20 09/25/20 22:25 05:45 Creatine Kinase CK-MB (CK-2) Troponin I 0.537 0.476 NT-Pro-B Natriuret Pep 5040 H Impressions: KUB X-Ray 09/17/20 09:30 IMPRESSION: Nasogastric tube tip and side port in the stomach Chest X-Ray 09/24/20 05:00 IMPRESSION: Parenchymal opacities with modest improvement. SUPPORT DEVICE(S) IN EXPECTED LOCATIONS. All labs, radiographs, diagnostic studies and EKGs were personally reviewed: Yes In addition, reports of radiographic and diagnostic studies were read: Yes Assessment and Plan - Diagnosis (1) ARDS (adult respiratory distress syndrome) Is this a current diagnosis for this admission?: Yes Plan: * Titrate vent settings based on ABG results. * Return to supine position today. * Continue furosemide 40 mg IV every 8 hours x 3 doses. * Monitor urine output. Reduce fluid input. * Off sildenafil. (2) Elevated brain natriuretic peptide (BNP) level Is this a current diagnosis for this admission?: Yes Plan: * Continue diuresis. Target CVP 8-10 (taking into consideration the patient's e levated PEEP). (3) COVID-19 determined by clinical diagnostic criteria Is this a current diagnosis for this admission?: Yes (4) Diabetes mellitus Qualifiers: Diabetes mellitus type: type 2 Diabetes mellitus intermission coordinator insulin use: without intermission coordinator use Diabetes mellitus complication status: without complication Qualified Code(s): E11.9 - Type 2 diabetes mellitus without complications Is this a current diagnosis for this admission?: Yes (5) Bradycardia Is this a current diagnosis for this admission?: Yes (6) PNA (pneumonia) Qualifiers: Pneumonia type: due to methicillin-sensitive Staphylococcus aureus (MSSA) Laterality: bilateral Lung location: unspecified part of lung Qualified Code(s): J15.211 - Pneumonia due to Methicillin susceptible Staphylococcus aureus Is this a current diagnosis for this admission?: Yes Critical Time Critical Time (minutes): 120 Level of Care: ICU -: 1. The care of a critical patient is a dynamic process. This note is a sales representative publications synopsis but static in nature. The timeframe for treatments given in order is not necessarily the actual time these treatments may have been done. 2. This patient requires critical care secondary to ongoing requirements for therapy not offered or safe outside the critical care environment. Transfer to a lower level of care will result in altered life or limb morbidity and mortality. 3. Multidisciplinary rounds completed. 4. ABCDE bundle addressed.
[2020-09-25 19:16] LABS: ARTERIAL BLOOD BASE EXCESS -1.7 mmol/L; ARTERIAL BLOOD FIO2 100%; ARTERIAL BLOOD H2CO3 1.38 mmol/L (1.05-1.35); ARTERIAL BLOOD HCO3 24.2 mmol/L (20-24); ARTERIAL BLOOD O2 SATURATION 84.6 % (94-98); ARTERIAL BLOOD PCO2 45.8 mmHg (35-45); ARTERIAL BLOOD PH 7.34 (7.35-7.45); ARTERIAL BLOOD PO2 51.9 mmHg (80-100); ARTERIAL BLOOD TOTAL CO2 25.6 mmol/L (23-27)
[2020-09-25] MEDS: ALBUMIN HUMAN 12.5 GM/50 ML RTUINJ IV SCH (22:35)
[2020-09-25] MEDS: LATANOPROST 0.005% OPH SOLN 2.5 ML OU SCH (22:52)
[2020-09-26] MEDS: ALBUMIN HUMAN 12.5 GM/50 ML RTUINJ IV SCH (00:10)
[2020-09-26] MEDS: INSULIN REG, HUMAN 100 UNIT/ML 3 ML VIAL (PYX) SUBCUT SCH ×4 (00:40→17:59)
[2020-09-26] MEDS: ALBUTEROL SULFATE 0.083% NEB 2.5 MG/3 ML AMPUL NEB PRN ×2 (01:22→05:42)
[2020-09-26] MEDS: NORMAL SALINE 500 ML with ROCURONIUM BROMIDE 500 MG IV PRN ×2 (01:50)
[2020-09-26] MEDS: FUROSEMIDE INJ/PF 40 MG/4 ML SDV IV SCH ×2 (02:26→09:59)
[2020-09-26] MEDS: DEXAMETHASONE SOD PHOSPHATE INJ 4 MG/1 ML VIAL IV SCH ×3 (02:30→18:00)
[2020-09-26] MEDS: MIDAZOLAM HCL 50 MG/100 ML RTUINJ IV PRN ×4 (03:11→21:34)
[2020-09-26] MEDS: FENTANYL CITRATE/PF 600 MCG/60 ML BAG IV PRN ×4 (03:39→21:35)
[2020-09-26 06:09] LABS: ARTERIAL BLOOD BASE EXCESS 0.3 mmol/L; ARTERIAL BLOOD FIO2 100%; ARTERIAL BLOOD H2CO3 1.24 mmol/L (1.05-1.35); ARTERIAL BLOOD HCO3 25.1 mmol/L (20-24); ARTERIAL BLOOD PCO2 41.1 mmHg (35-45); ARTERIAL BLOOD PO2 65.6 mmHg (80-100); ARTERIAL BLOOD TOTAL CO2 26.3 mmol/L (23-27)
[2020-09-26 06:43] LABS: APPEARANCE,URINE CLOUDY; BILIRUBIN,URINE NEGATIVE (NEGATIVE); COLOR,URINE YELLOW; GLUCOSE, URINE 150 mg/dL (NEGATIVE); KETONES,URINE NEGATIVE (NEGATIVE); LEUKOCYTE ESTERASE,URINE MODERATE (NEGATIVE); NITRITE,URINE NEGATIVE (NEGATIVE); PROTEIN,URINE NEGATIVE (NEGATIVE); URIC ACID CRYSTALS,URINE MODERATE /HPF; URINE SPECIFIC GRAVITY 1.017
[2020-09-26 06:48] LABS: HEMATOCRIT 29.9 % (37.9-51.0); HEMOGLOBIN 9.7 g/dL (13.5-17.0); MEAN CORPUSCULAR HEMOGLOBIN 24.2 pg (27.0-33.4); MEAN CORPUSCULAR HGB CONC 32.6 g/dL (32.0-36.0); MEAN CORPUSCULAR VOLUME 74 fl (80-97); PLATELET COUNT 366 10^3/uL (150-450); RED BLOOD COUNT 4.03 10^6/uL (4.35-5.55)
[2020-09-26 07:00] LABS: ANION GAP 10 (5-19); BLOOD UREA NITROGEN 61 mg/dL (7-20); CALCIUM 7.7 mg/dL (8.4-10.2); CARBON DIOXIDE 29 mmol/L (22-30); CHLORIDE 108 mmol/L (98-107); GLUCOSE 221 mg/dL (75-110); PHOSPHORUS 3.7 mg/dL (2.5-4.5)
[2020-09-26 07:07] LABS: PREALBUMIN 9.8 mg/dL (17.6-36.0)
[2020-09-26 07:18] LABS: ABSOLUTE LYMPHOCYTES# (MANUAL) 0.7 10^3/uL (0.5-4.7); ABSOLUTE MONOCYTES # (MANUAL) 0.9 10^3/uL (0.1-1.4); BASOPHILS % (MANUAL) 0 % (0-2); EOSINOPHILS % (MANUAL) 0 % (0-6); LYMPHOCYTES % (MANUAL) 4 % (13-45); MONOCYTES % (MANUAL) 5 % (3-13); SEGMENTED NEUTROPHILS % (MAN) 91 % (42-78); TOTAL CELLS COUNTED 100
[2020-09-26 07:20] LABS: ANISOCYTOSIS 1+; BURR CELLS SLIGHT; HYPOCHROMASIA SLIGHT
[2020-09-26 07:21] LABS: OVALOCYTES SLIGHT
[2020-09-26 07:22] LABS: PLATELET COMMENT ADEQUATE
--- NOTE | 2020-09-26 09:31 | PDOC CRITICAL CARE PROG REPORT ---
General Date:: 09/26/20 ICU Day:: 14 Ventilator Day:: 14 Hospital Day:: 14 Resuscitation Status: Do Not Resuscitate Events in the past 12 to 24 Hours:: Pt is now in prone position. Review of systems relevant to events:: Pulmonary. Reason for ICU Addmission:: RESP FAILURE requiring intubation, COVID pneumonia. - Medications: Medications reviewed and adjusted accordingly: Yes Vasopressors:: Dopamine Sedation:: Versed Physical Exam Vital Signs: Temp Pulse Resp BP Pulse Ox 97.3 F 84 0 L 104/69 94 09/26/20 08:02 09/26/20 05:42 09/26/20 08:02 09/26/20 08:02 09/26/20 08:02 Intake & Output 09/25/20 09/26/20 09/27/20 06:59 06:59 06:59 Intake Total 2530 2449 Output Total 3580 2450 100 Balance -1050 -1 -100 Weight 107.9 kg 110.6 kg Weight/Height Weight 110.6 kg Height 5 ft 9 in General appearance: PRESENT: obese Head exam: PRESENT: atraumatic, normocephalic Eye exam: PRESENT: PERRLA Ear exam: PRESENT: normal external ear exam Mouth exam: PRESENT: moist, tongue midline Respiratory exam: PRESENT: clear to auscultation arturo, decreased breath sounds. ABSENT: rales, rhonchi, wheezes Cardiovascular exam: PRESENT: RRR. ABSENT: diastolic murmur, rubs, systolic murmur GI/Abdominal exam: PRESENT: normal bowel sounds, soft. ABSENT: distended, guar ding, mass, organolmegaly, rebound, tenderness Rectal exam: PRESENT: deferred Gentrourinary exam: PRESENT: indwelling catheter Extremities exam: PRESENT: full ROM. ABSENT: calf tenderness, clubbing, pedal edema Musculoskeletal exam: PRESENT: normal inspection Neurological exam: PRESENT: other - Sedated and with rocuronium. Skin exam: PRESENT: dry, intact, warm. ABSENT: cyanosis, rash Tubes/Lines: PRESENT: Endotracheal Tube, Nasogastic Tube Laboratory/Radiographs Laboratory Results: 09/26/20 06:10 09/26/20 06:10 09/25/20 09/25/20 09/26/20 12:55 19:00 05:35 WBC RBC Hgb Hct MCV MCH MCHC RDW Plt Count Seg Neutrophils % Carbonic Acid 1.23 1.38 H 1.24 HCO3/H2CO3 Ratio 20:1 17:1 20:1 ABG pH 7.42 7.34 L 7.40 ABG pCO2 40.7 45.8 H 41.1 ABG pO2 52.2 L 51.9 L 65.6 L ABG HCO3 25.7 H 24.2 H 25.1 H ABG O2 Saturation 87.6 L 84.6 L 93.0 L ABG Base Excess 1.2 -1.7 0.3 FiO2 100% 100% 100% Sodium Potassium Chloride Carbon Dioxide Anion Gap BUN Creatinine Est GFR ( Amer) Glucose Calcium Phosphorus Magnesium Prealbumin Urine Color Urine Appearance Urine pH Ur Specific [place] Urine Protein Urine Glucose (UA) Urine Ketones Urine Blood Urine Nitrite Ur Leukocyte Esterase Urine WBC (Auto) Urine RBC (Auto) 09/26/20 09/26/20 09/26/20 06:10 06:10 06:10 WBC 17.0 H RBC 4.03 L Hgb 9.7 L Hct 29.9 L MCV 74 L MCH 24.2 L MCHC 32.6 RDW 17.0 H Plt Count 366 Seg Neutrophils % Not Reportable Carbonic Acid HCO3/H2CO3 Ratio ABG pH ABG pCO2 ABG pO2 ABG HCO3 ABG O2 Saturation ABG Base Excess FiO2 Sodium 146.7 H Potassium 4.0 Chloride 108 H Carbon Dioxide 29 Anion Gap 10 BUN 61 H Creatinine 1.05 Est GFR ( Amer) > 60 Glucose 221 H Calcium 7.7 L Phosphorus 3.7 Magnesium 2.6 H Prealbumin 9.8 L Urine Color YELLOW Urine Appearance CLOUDY Urine pH 5.0 Ur Specific [place] 1.017 Urine Protein NEGATIVE Urine Glucose (UA) 150 H Urine Ketones NEGATIVE Urine Blood NEGATIVE Urine Nitrite NEGATIVE Ur Leukocyte Esterase MODERATE H Urine WBC (Auto) 45 Urine RBC (Auto) 8 09/13/20 09/13/20 09/14/20 18:42 18:42 01:40 Creatine Kinase 63 CK-MB (CK-2) 1.04 Troponin I 0.017 0.037 NT-Pro-B Natriuret Pep 110 09/14/20 09/14/20 09/14/20 07:45 07:45 13:19 Creatine Kinase CK-MB (CK-2) 1.12 0.96 Troponin I 0.015 < 0.012 NT-Pro-B Natriuret Pep 261 H 09/15/20 09/16/20 09/20/20 02:54 06:40 04:10 Creatine Kinase CK-MB (CK-2) Troponin I NT-Pro-B Natriuret Pep 103 106 119 09/24/20 09/24/20 09/24/20 02:55 10:25 16:30 Creatine Kinase CK-MB (CK-2) Troponin I 0.933 0.548 NT-Pro-B Natriuret Pep 3730 H 09/24/20 09/25/20 22:25 05:45 Creatine Kinase CK-MB (CK-2) Troponin I 0.537 0.476 NT-Pro-B Natriuret Pep 5040 H Impressions: KUB X-Ray 09/17/20 09:30 IMPRESSION: Nasogastric tube tip and side port in the stomach Chest X-Ray 09/25/20 05:00 IMPRESSION: Radiographic changes in the lungs compatible with covid 19. No improvement. SUPPORT DEVICE(S) IN EXPECTED LOCATIONS. All labs, radiographs, diagnostic studies and EKGs were personally reviewed: Yes In addition, reports of radiographic and diagnostic studies were read: Yes Assessment and Plan - Diagnosis (1) COVID-19 determined by clinical diagnostic criteria Is this a current diagnosis for this admission?: Yes Plan: He is positive by laboratory criteria also. His CXR no longer loks like ARDS although he is on 100% with a PO2 of 65, still with ARDS numbers but an X-ray that does not appear to be. (2) Endotracheally intubated Is this a current diagnosis for this admission?: Yes Plan: He will need intubation for the next few days at least given his lung disease. (3) PNA (pneumonia) Qualifiers: Pneumonia type: due to methicillin-sensitive Staphylococcus aureus (MSSA) Laterality: bilateral Lung location: unspecified part of lung Qualified Code(s): J15.211 - Pneumonia due to Methicillin susceptible Staphylococcus aureus Is this a current diagnosis for this admission?: Yes Plan: His CXR has the appearance of a Covid PNA. (4) Diabetes mellitus Qualifiers: Diabetes mellitus type: type 2 Diabetes mellitus long-term insulin use: without vermin exterminator use Diabetes mellitus complication status: without complication Qualified Code(s): E11.9 - Type 2 diabetes mellitus without complications Is this a current diagnosis for this admission?: Yes Plan: Under reasonable control. Plan Summary: Keep intubated and in the ICU for now. He is in proned position. Neck not hyperextended, eyes with no pressure, penis with no pressure. Critical Time Critical Time (minutes): 35 Level of Care: ICU Anticipated discharge: SNF Anticipated DC Timeframe: Other -: 1. The care of a critical patient is a dynamic process. This note is a computer help desk representative synopsis but static in nature. The timeframe for treatments given in order is not necessarily the actual time these treatments may have been done. 2. This patient requires critical care secondary to ongoing requirements for therapy not offered or safe outside the critical care environment. Transfer to a lower level of care will result in altered life or limb morbidity and mortality. 3. Multidisciplinary rounds completed. 4. ABCDE bundle addressed.
[2020-09-26] MEDS: CARVEDILOL 12.5 MG TABLET NG SCH (09:54)
[2020-09-26] MEDS: ASCORBIC ACID 500 MG TABLET NG SCH ×2 (09:55→18:00)
[2020-09-26] MEDS: SENNOSIDES/DOCUSATE 8.6-50 MG 1 EACH TABLET PO SCH ×3 (09:55→18:00)
[2020-09-26] MEDS: ATORVASTATIN CALCIUM 40 MG TABLET NG SCH (09:56)
[2020-09-26] MEDS: ASPIRIN 81 MG TABLET, CHEWABLE NG SCH (09:56)
[2020-09-26] MEDS: PANTOPRAZOLE SODIUM 40 MG VIAL IV SCH (09:59)
[2020-09-26] MEDS: AMINO AC/PROTEIN HYDR/WHEY PRO 11 GM/45 ML PKT NG SCH ×4 (10:00→21:32)
[2020-09-26] MEDS: TIMOLOL MALEATE 0.25% OPH SOLN 5 ML OU SCH ×2 (10:00→21:32)
[2020-09-26] MEDS: INSULIN GLARGINE,HUM.REC.ANLOG 1,000 UNIT/10 ML VIAL SUBCUT SCH (11:35)
--- NOTE | 2020-09-26 13:29 | RADIOLOGY REPORT (SQ) ---
EXAM DESCRIPTION: CHEST SINGLE VIEW IMAGES COMPLETED DATE/TIME: 09/26/2020 12:12 pm REASON FOR STUDY: ETT tube COMPARISON: 09/25/2020 EXAM PARAMETERS: NUMBER OF VIEWS: One view. TECHNIQUE: Single frontal radiographic view of the chest acquired. RADIATION DOSE: NA LIMITATIONS: None. FINDINGS: LUNGS AND PLEURA: Persistent patchy opacities in both lungs in a perihilar and basilar dis tribution, stable from prior. Probable trace bilateral pleural effusions. No pneumothorax. MEDIASTINUM AND HILAR STRUCTURES: No masses. Contour normal. HEART AND VASCULAR STRUCTURES: Heart normal in size. Normal vasculature. 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 HARDWARE: Endotracheal tube with tip about 2 cm above the [place], esophagogastric tube tip below the diaphragm, and right IJ central venous catheter with tip at the aortocaval junction, unchanged. OTHER: No other significant finding. IMPRESSION: Persistent bilateral areas of consolidation not significantly changed. TECHNICAL DOCUMENTATION: JOB ID: [id number] 2010 [employer]- All Rights Reserved Reading location - IP/workstation name: [email or web address]
[2020-09-26] MEDS: LATANOPROST 0.005% OPH SOLN 2.5 ML OU SCH (21:33)
[2020-09-27] MEDS: ALBUTEROL SULFATE 0.083% NEB 2.5 MG/3 ML AMPUL NEB SCH ×2 (00:08→03:22)
[2020-09-27] MEDS: INSULIN REG, HUMAN 100 UNIT/ML 3 ML VIAL (PYX) SUBCUT SCH ×2 (00:29→07:00)
[2020-09-27] MEDS ORDERED: FUROSEMIDE INJ/PF 40 MG/4 ML SDV ONE ×2 (00:34→05:02)
[2020-09-27] MEDS: ARGATROBAN 250 MG/NS 250 ML (NON-ESRD) IV PRN ×2 (01:00)
[2020-09-27] MEDS ORDERED: FUROSEMIDE INJ/PF 40 MG/4 ML SDV IV ONE ×2 (01:51→05:08)
[2020-09-27] MEDS: DEXAMETHASONE SOD PHOSPHATE INJ 4 MG/1 ML VIAL IV SCH (02:09)
[2020-09-27] MEDS: FENTANYL CITRATE/PF 600 MCG/60 ML BAG IV PRN (03:50)
[2020-09-27] MEDS: MIDAZOLAM HCL 50 MG/100 ML RTUINJ IV PRN (04:05)
[2020-09-27 04:54] LABS: HEMATOCRIT 38.9 % (37.9-51.0); MEAN CORPUSCULAR HEMOGLOBIN 24.5 pg (27.0-33.4); MEAN CORPUSCULAR HGB CONC 32.4 g/dL (32.0-36.0); MEAN CORPUSCULAR VOLUME 76 fl (80-97); PLATELET COUNT 419 10^3/uL (150-450); RED BLOOD COUNT 5.15 10^6/uL (4.35-5.55); RED CELL DISTRIBUTION WIDTH 17.4 % (11.5-14.0); WHITE BLOOD COUNT 8.7 10^3/uL (4.0-10.5)
[2020-09-27 05:07] LABS: HEMOGLOBIN 12.6 g/dL (13.5-17.0)
[2020-09-27 05:37] LABS: ANION GAP 8 (5-19); BLOOD UREA NITROGEN 61 mg/dL (7-20); CALCIUM 8.1 mg/dL (8.4-10.2); CARBON DIOXIDE 28 mmol/L (22-30); CHLORIDE 112 mmol/L (98-107); GLUCOSE 153 mg/dL (75-110)
[2020-09-27 05:38] LABS: ABSOLUTE LYMPHOCYTES# (MANUAL) 0.3 10^3/uL (0.5-4.7); ABSOLUTE MONOCYTES # (MANUAL) 0.3 10^3/uL (0.1-1.4); BAND NEUTROPHILS % (MANUAL) 5 % (3-5); BASOPHILS % (MANUAL) 0 % (0-2); EOSINOPHILS % (MANUAL) 0 % (0-6); LYMPHOCYTES % (MANUAL) 4 % (13-45); MONOCYTES % (MANUAL) 3 % (3-13); SEGMENTED NEUTROPHILS % (MAN) 88 % (42-78); TOTAL CELLS COUNTED 100
[2020-09-27 05:40] LABS: ANISOCYTOSIS 2+; BURR CELLS 3+; OVALOCYTES 2+; POIKILOCYTOSIS 3+; TOXIC GRANULATION SLIGHT; TOXIC VACUOLATION PRESENT
[2020-09-27 05:41] LABS: PLATELET COMMENT ADEQUATE; SCHISTOCYTES 2+; TEAR DROP CELLS 2+
[2020-09-27 06:13] VITALS: BP 78/62
--- NOTE | 2020-09-27 08:02 | Death Summary ---
Summary Date : 09/27/20 Time of :: 07:16 Autopsy: No Resuscitation Status: Do Not Resuscitate Consulting Provider: Home Vale MD - Final Diagnosis (1) COVID-19 determined by clinical diagnostic criteria Is this a current diagnosis for this admission?: Yes (2) Endotracheally intubated Is this a current diagnosis for this admission?: Yes (3) PNA (pneumonia) Is this a current diagnosis for this admission?: Yes (4) Diabetes mellitus Is this a current diagnosis for this admission?: Yes Hospital Course:: This patient was a 70 yo man diagnosed with COVID-19 PNA by lab work. He was in the hospital for 2 weeks, sick for slightly longer. Initially admitted to the floor not the ICU but transferred after a few days with increasing work of breathing, some hypoxia. He was intubated and never came off the ventilator. He became increasingly hypoxic needing 100% FIO2 at the end and even with this his saturationd continued to drop in the range of below 50%. His was called and was with him as he at 7:16 AM on Saturday. He was a DNR status by then. Other risk factors include HTN, DM-II, obesity.
--- NOTE | 2020-09-27 08:28 | RADIOLOGY REPORT (SQ) ---
EXAM DESCRIPTION: CHEST SINGLE VIEW IMAGES COMPLETED DATE/TIME: 09/27/2020 5:36 am REASON FOR STUDY: hypoxia COMPARISON: 09/26/2020 NUMBER OF VIEWS: One view. TECHNIQUE: Single frontal radiographic image of the chest acquired. LIMITATIONS: None. FINDINGS: LUNGS AND PLEURA: Increasing bilateral alveolar airspace disease. MEDIASTINUM AND HILAR STRUCTURES: The patient has developed pneumomediastinum since yesterday. HEART AND VASCULAR STRUCTURES: Stable appearance. SUPPORT DEVICES: Appropriate location without change. BONES: No acute findings. OTHER: Diffuse subcutaneous emphysema new from prior study. IMPRESSION: Pneumomediastinum and subcutaneous emphysema new from prior study. Increasing diffuse b ilateral alveolar airspace disease. Support lines and tubes remain in satisfactory position. TECHNICAL DOCUMENTATION: JOB ID: [id number] 2010 [employer]- All Rights Reserved Reading location - IP/workstation name: [email or web address]
[2020-09-27] MEDS ORDERED: FUROSEMIDE INJ/PF 40 MG/4 ML SDV IV SCH ×2 (10:00)
[2020-09-27] MEDS ORDERED: SENNOSIDES/DOCUSATE 8.6-50 MG 1 EACH TABLET NG SCH (10:00)
[2020-09-27] MEDS ORDERED: PHARMACY COMMUNICATION ORDER MC SCH (18:00)
== END 2020-09-27 09:18 | disposition expired | DRG 207 ==
LOC: ER 18:39 → EH 21:08 → ICU 23:23
PROVIDERS: ADMIT Anesthesiology; ATTEND Anesthesiology
PROC: 5A1955Z Respiratory Ventilation, Greater than 96 Consecutive Hours (ICD-10-PCS; principal; 2020-09-13)
PROC: 02H633Z Insertion of Infusion Device into Right Atrium, Percutaneous Approach (ICD-10-PCS; 2020-09-16)
PROC: 0BH17EZ Insertion of Endotracheal Airway into Trachea, Via Natural or Artificial Opening (ICD-10-PCS; 2020-09-17)
PROC: XW13325 Transfusion of Convalescent Plasma (Nonautologous) into Peripheral Vein, Percutaneous Approach, New Technology Group 5 (ICD-10-PCS; 2020-09-17)
PROC: XW033E5 Introduction of Remdesivir Anti-infective into Peripheral Vein, Percutaneous Approach, New Technology Group 5 (ICD-10-PCS; 2020-09-19)
DX: U07.1 COVID-19 (principal); J80 Acute respiratory distress syndrome; J12.89 Other viral pneumonia; J15.211 Pneumonia due to Methicillin susceptible Staphylococcus aureus; N17.9 Acute kidney failure, unspecified; I10 Essential (primary) hypertension; E11.9 Type 2 diabetes mellitus without complications; E78.5 Hyperlipidemia, unspecified; Z79.4 Long term (current) use of insulin; R00.1 Bradycardia, unspecified; Z66 Do not resuscitate; E66.9 Obesity, unspecified; Z78.1 Physical restraint status
CPT/HCPCS: 31500; 36415; 36430; 36556; 36600; 71045; 74018; 80048; 80053; 80061; 80202; 81001; 82140; 82550; 82553; 82803; 82962; 83605; 83615; 83735; 83880; 84100; 84134; 84439; 84443; 84478; 84484; 85025; 85027; 85379; 85610; 85730; 86140; 86850; 86900; 86901; 87040; 87070; 87077; 87086; 87150; 87186; 87205; 87635; 87804; 93005; 93010; 94002; 94003; 94640; 96365; 96367; 96368; 96375; 99238; 99285; 99291; 99292; C9113; C9803; J0330; J0692; J0883; J1100; J1265; J1644; J1815; J1940; J2020; J2060; J2250; J2543; J2704; J3010; J3370; J3490; J7040; J7050; J7060; J7120; J7613; P9047